=== PATIENT | female | born 1990 | race Caucasian/White ===

== ENCOUNTER 2024-01-29 15:55 | Outpatient (CLI) | payer MEDICAID, SELFPAY ==
--- OUTSIDE RECORDS SUMMARY | 2024-01-29 15:58 | XMS_ITS | Encounter Summary ---
Author Organization [facility] Address [address] [place] [address] Care Team Providers Care Marketing Summer Intern Name Role Phone None Reported, Pcp Primary Care Provider Unavail able Encounter Details Date Type Department Care Team (Latest Contact Info) Description 05/17/2023 Intake [facility] Social History Tobacco Use Types Packs/Day Years Used Date Smoking Tobacco: Former Cigarettes Q uit: 2018 Smokeless Tobacco: Never Alcohol Use Standard Drinks/Week Comments Not Currently 0 (1 standard drink = 0.6 oz pur e alcohol) [facility] Utilities Answer Date Recorded In the past 12 months has e [facility], gas, oil, or water [employer] threatened to shut off services in your home? No 05/17/2023 Humiliation, Afraid, Rape, and Kick questionnair e Answer Date Recorded Within the last year, have y ou been afraid of your partner or ex-partner? No 05/17/2023 Within the last year, have y ou been humiliated or emotionally abused in other ways by your partner or ex-partner? No Within the last year, have y ou been kicked, hit, slapped, or otherwise physically hurt by your partner or ex-partner? No 05/17/2023 Within the last year, have y ou been raped or forced to have any kind of sexual activity by your partner or ex-partner? No 05/17/2023 Social Connection and Isolat ion Panel [NHANES] Answer Date Recorded In a typical week, how many times do you talk on the phone with family, friends, or neighbors? Twice a week 01/06/2020 Frequency of Social Gatherin gs with Friends and Family Not on file 01/06/2020 Attends Judaism Services Not on file 01/05 Do you belong to any clubs o r organizations such as buddhist groups, unions, fraternal or athletic groups, or school groups? Yes 01/06/2020 How often do you attend meet ings of the clubs or organizations you belong to? More than 4 times per year 01/06/2020 Marital Status Not on file 01/06/2020 AUDIT-C Answer Date Recorded Frequency of Alcohol Consumption Never 02/26/2019 Average Number of Drinks Not on file 019 Frequency of Binge Drinking Not on file 02/08 Overall Financial Resource Strain (CARDIA) Answe r Date Recorded How hard is it for you to pa y for the very basics like food, housing, medical care, and heating? Patient declined 02/05/2023 PHQ-2 Answer Date Recorded PHQ-2 Score 0 08/02/2023 [facility] - Occupational Stress Questionnaire Answer Date Recorded Do you feel stress - tense, restless, nervous, or anxious, or unable to sleep at night because your mind is troubled all the time - these days? Not at all 01/06/2020 Exercise Vital Sign Answer Date Recorde d On average, how many days pe r week do you engage in moderate to strenuous exercise (like a brisk walk)? 7 days 02/05/2023 On average, how many minutes do you engage in exercise at this level? 60 min 02/05/2023 Hunger Vital Sign Answer Date Recorded Within the past 12 months, y ou worried that your food would run out before you got the money to buy more. Patient declined Within the past 12 months, t he food you bought just didn't last and you didn't have money to get more. Patient declined 11/2023 PRAPARE - Transportation Answer Date Re corded In the past 12 months, has l ack of transportation kept you from medical appointments or from getting medications? No 11/2023 In the past 12 months, has l ack of transportation kept you from meetings, work, or from getting things needed for daily living? No 05/17/2023 Depression Answer Date Recor ded PHQ-9 Total Score (max 27) 0 08/01 Nutrition Answer Date Recorded On average, how many serving s of fruits and vegetables do you eat per day (serving size is equal to 1 cup or approximately the size of a tennis ball)? 5 or more 02/05/2023 Dental Answer Date Recorded Dental: Regular Dentist Yes 02/06/20 23 Housing Stability Answer Date Recorded What is your living situation today? I have a [facility] place to live 05/17/2023 Education Answer Date Recorded What is the highest level of school you have completed or the highest degree you have received? Some college, no degree 01/06/2020 Comments Yes Sex and Gender Information Value Date Recorded Sex Assigned at Female 02/05/2023 9:56 PM CDT Legal Sex Female 3:22 PM CDT Gender Identity Female 02/05/2023 9:56 PM CDT Sexual Orientation Straight 02/05/2023 9: 56 PM CDT documented as of this encounter Plan of Treatment Not on file documented as of this encounter Visit Diagnoses Not on filedocumented in this encounter Additional Health Concerns Assessment Noted Time PHQ-9 Depression Total Score: 0 12/29/19 20 10:05 AM CDT documented as of this encounter Care Teams Marketing Summer Intern Relationship Specialty Start Date End Date None Reported, Pcp PCP - General Family Medicine 07/20/23 documented as of this encounter
--- OUTSIDE RECORDS SUMMARY | 2024-01-29 15:58 | XMS_ITS ---
Author Organization [facility] Address [address] [place] [address] Care Team Providers Care Lining Baster Name Role Phone Unavailable Unavailable Unavailable Surgery Details Not on file Complications Check Surgery Details section. Procedure Estimated Blood Loss Check Surgery Details section. Procedure Findings Check Surgery Details section. Procedure Specimens Taken Check Surgery Details section.
--- OUTSIDE RECORDS SUMMARY | 2024-01-29 15:58 | XMS_ITS | Encounter Summary ---
Author Organization [facility] Address [address] [place] [address] Care Team Providers Care Drain Tile Machine Operator Name Role Phone None Reported, Pcp Primary Care Provider Unavail able Encounter Details Date Type Department Care Team (Late st Contact Info) Description 09/28/2023 Clinical Communication Department of Family Medicine, [facility] in [place], [place] [address] [place] [address] David Perez M.D., M.S. [address] [place] [address] Social History Tobacco Use Types Packs/Day Years Used Date Smoking Tobacco: Former Cigarettes Q uit: 2018 Smokeless Tobacco: Never Alcohol Use Standard Drinks/Week Comments Never 0 (1 standard drink = 0.6 oz pur e alcohol) [facility] Utilities Answer Date Recorded In the past 12 months has e [facility], gas, oil, or water [employer] threatened to shut off services in your [...] and Family Not on file 01/06/2020 Attends Quaker Services Not on file 01/05 Do you belong to any clubs o r organizations such as yazdanism groups, unions, fraternal or athletic groups, or [...] Answer Date Recorded PHQ-2 Score 0 08/02/2023 [facility] - Occupational [...] medical appointments or from getting medications? No 02/0 11/2023 In the past 12 months, has [...] Date Recorded Dental: Regular Dentist Yes 02/06/20 Housing Stability Answer Date Recorded What is your living situation today? I have a [facility] place to live 05/17/2023 Education Answer Date Recorded What is the highest level of school you have completed or the highest degree you have received? Some college, no degree 01/06/2020 Comments No Sex and Gender Information Value Date Recorded [...] Noted Time PHQ-9 Depression Total Score: 0 08/02/19 10:44 AM CDT documented as of this encounter Care Teams Drain Tile Machine Operator Relationship Specialty Start Date End Date None Reported, Pcp PCP - General Family Medicine 07/20/23 documented as of this encounter
--- OUTSIDE RECORDS SUMMARY | 2024-01-29 15:58 | XMS_ITS | Referral Summary ---
Author Organization [facility] Address [address] [place] [address] Care Team Providers Care Anthropological Linguist Name Role Phone Lucretia, Md Primary Care Provider Unavailabl e None, Unavailable Unavailable Allergies Active Allergy Reactions Criticality Noted Date Comments Cephalexin Swelling, lips/tongue High 09/24/2018 Latex 09/24/2018 Medications Medication Sig Dispensed Refills Start Date End Date Status dextroamphetamine-amp hetamine (ADDERALL SR) 20 mg oral extended release capsule 24 HR 0 08/05/2018 Active ibuprofen 600 mg oral tablet Take 600 mg by mouth. 01/24/2018 Active vitamin with Ca,No.72-Iron-FA ( PLUS) 27 mg iron- 1 mg oral tablet Take 1 tablet by mouth Daily. Active acetaminophen (TYLENOL) 500 mg oral tablet Take 1-2 tablets (500-1,000 mg) by mouth every 6 (six) hours as needed. 30 tablet 03/04/2019 Active Active Problems No known active problems Social History Tobacco Use Types Packs/Day Years Used Date Smoking Tobacco: Never Smokeless Tobacco: Never Alcohol Use Standard Drinks/Week Comments Not Currently 0 (1 standard drink = 0.6 oz pur e alcohol) Sex and Gender Information Value Date Recorded Sex Assigned at Not on file Gender Identity Not on file Sexual Orientation Not on file Last Filed Vital Signs Vital Sign Reading Time Taken Comments Blood Pressure 135/70 12/29/2018 3:36 PM CDT Pulse 59 12/29/2018 3:36 PM CDT Temperature 36.6 ??C (97.9 ??F) 12/29/2018 3:36 PM CD T Respiratory Rate 16 12/29/2018 3:36 PM CDT Oxygen Saturation 98% 12/29/2018 3:36 PM CDT Inhaled Oxygen Concentration - - Weight 81.6 kg (180 lb) 12/29/2018 3:36 PM CDT Height 160 cm (5' 3) 12/29/2018 3:36 PM CDT Body Mass Index 31.89 12/29/2018 3:36 PM CDT Plan of Treatment Not on file Care Teams Anthropological Linguist Relationship Specialty Start Date End Date None, PCP - General 09/24/18 None, PCP - Primary Care Clinic 09/24/18
--- OUTSIDE RECORDS SUMMARY | 2024-01-29 15:58 | XMS_ITS | Referral Summary ---
Author Organization [facility] Address [address] [place] [address] Care Team Providers Care Sliding Joint Maker Name Role Phone None Reported, Pcp Primary Care Provider Unavail able Source Comments Patient records contain information from all sites at [facility]. For routine questions regarding patient records, call [phone] during business hours, M-F 8:00 AM - 5:00 PM Central Time. Record requests for emergency care only can be directed to [phone] at any time.[facility] Allergies Active Allergy Reactions Criticality Noted Date Comments Cephalexin Anaphylaxis,Swelling High 07/16/2016 Latex Anaphylaxis,Angioede ma (Reselect Reaction),Hives (Reselect Reaction) High 02/16/2012 Medications * This document contains information received from the source organization and may not represent a complete record from that organization. LORazepam (ATIVAN) 2 mg tablet Take 2 mg by mouth 3 (three) times a day as needed for anxiety. Active lxvxphv-Bi-asxu- FA 27 mg iron- 1 mg tablet Take 1 tablet by mouth daily. Active Ventolin HFA 90 mcg/actuation inhalerIndicatio ns:Asthma Mild Intermittent (HCC) INHALE 2 PUFFS BY MOUTH EVERY 4 HOURS NEEDED FOR WHEEZING FOR SHORTNESS OF BREATH 18 g 11/22/19 23 Active cyanocobalamin (vitamin B-12) 1,000 mcg tablet Take 1,000 mcg by mouth daily. Active calcium carbonate-vitami n D3 (Calcium 600 with Vitamin D3) 600 mg-10 mcg (400 unit) tablet,chewable Chew 1 tablet 2 (two) times a day. Active EPINEPHrine 0.3 mg/0.3 mL injection syringe Inject 0.3 mL (0.3 mg total) intramuscularly as needed for anaphylaxis. Inject into the thigh. 2 each 3 02/29/20 23 Active acetaminophen (TYLENOL) 500 mg tablet Take 2 tablets (1,000 mg total) by mouth every 6 (six) hours as needed for pain. 100 tablet 4 3:24 PM REFRIGERATION SERVICE INSPECTOR 05/21/19 24 Active fluticasone furoate (ARNUITY ELLIPTA) 200 mcg/actuation diskus inhaler Inhale 1 puff daily. 30 each 1 05/21/19 24 Active amphetamine-dext roamphetamine (ADDERALL XR) 25 mg 24 hr capsule Take 2 capsules (50 mg total) by mouth daily. 90 capsule 4 2:44 PM CDT 07/04/19 24 Active norethindrone (MICRONOR) 0.35 mg tablet Take 1 tablet (0.35 mg total) by mouth daily. Take at the same time each day. 84 tablet 4 4 2:44 PM CDT 07/04/19 24 Active Active Problems Patient Care Coordination No te Formatting of this note migh t be different from the original. Delivery plan: chart: Care Team/nursing team: DEBBI (Wenceslao and Nichelle) Partner name: Pertinent medical issues for management (just critical diagnoses for ): Di/di twins H/o classical incision Placenta Previa- /Maternal Board plans indicated: (yes or no) Genetic testing at delivery: Antepartum: Additional consults needed/completed: Echo - Dheeraj - Anesthesia - needed in 3rd trimester echos - ordered Tour - Genetics - Social Work - COVID: Flu Shot: Rhogam: A+ Tdap: Rubella/Varicella status: 28 week labs: PHQ 9: GBS: Labor/Delivery Plan: Contraception plan: Education: NOB - done Early - done Mid - done Late - Problem Noted Date Diagnosed Date Animal Bite Thigh Open Initial Right 07/20/2023 Diastasis Recti 05/20/2023 Other Immediate Hemorrhage 05/19/2023 Anemia Posthemorrhagic Acute (Blood Loss Anemia) 05/19/2023 Overview (05/19/2023): - Hgb 9.8 on POD1 Care And Lactating 05/18/2023 Overview (05/18/2023): Chraissa Silverio is a 33 y.o. . She was admitted to antepartum at 30w0d as a transfer for vaginal bleeding in the setting of a known complete posterior placenta previa. also complicated by a dichorionic diamniotic twin gestation, grand multiparity, mild intermittent asthma, obesity, ADHD, history of 3 deliveries including one classical , history of pre-eclampsia, mood disorder, history of PPH, history of spontaneous late precipitous . Prior to presenting to an outside hospital, she passed mucous mixed with dark blood. Otherwise asymptomatic. On exam, she was vitally stable. On pelvic exam mucous mixed with brown blood was seen. Cervix closed. She was transferred to antepartum for further monitoring. On 05/18 patient was evaluated at the bedside for vaginal bleeding and was noted to be actively bleeding and underwent an primary delivery. Complications of delivery included placental abruption of placenta A. She had a repeat delivery, delivering a liveborn male with weight of 1.58 kg and then Twin B was a liveborn female weighing 1.36 kg. Jean Claude, Boy A One Charissa [[id number]] 1.58 kg Jean Claude, Girl B Two Charissa [[phone]] 1.36 kg . Gestational age: 30w1d. occurred: Contraceptive methods administered during the delivery: None Both mother was in stable condition at the conclusion of the procedure. Neonates were handed off to the Dheeraj team. When the patient met appropriate criteria, she was transferred to the floor. She received her care at [facility]. Section Delivery 05/18/2023 Overview (05/18/2023): Charissa Silverio is a 33 y.o. . She was admitted to antepartum at 30w0d as a transfer for vaginal bleeding in the setting of a known complete posterior placenta previa. also complicated by a dichorionic diamniotic twin gestation, grand multiparity, mild intermittent asthma, obesity, ADHD, history of 3 deliveries including one classical , history of pre-eclampsia, mood disorder, history of PPH, history of spontaneous late precipitous . Prior to presenting to an outside hospital, she passed mucous mixed with dark blood. Otherwise asymptomatic. On exam, she was vitally stable. On pelvic exam mucous mixed with brown blood was seen. Cervix closed. She was transferred to antepartum for further monitoring. On 05/18 patient was evaluated at the bedside for vaginal bleeding and was noted to be actively bleeding and underwent an primary delivery. Complications of delivery included placental abruption of placenta A. She had a repeat delivery, delivering a liveborn male with weight of 1.58 kg and then Twin B was a liveborn female weighing 1.36 kg. Jean Claude, Boy A One Charissa [[id number]] 1.58 kg Jean Claude, Girl B Two Charissa [[phone]] 1.36 kg . Gestational age: 30w1d. occurred: Contraceptive methods administered during the delivery: None Both mother was in stable condition at the conclusion of the procedure. Neonates were handed off to the Dheeraj team. When the patient met appropriate criteria, she was transferred to the floor. She received her care at [facility]. Maternal Care For Vertical S car From Previous Delivery 01/09/2020 Overview (03/29/2023): Previous classical section. Recommend delivery around 36 weeks at latest. 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 Level II US returned normal. Assessment & Plan (03/17/2019 3:34 PM REFRIGERATION SERVICE INSPECTOR): Plan MFM consult and Level II US. Assessment & Plan (03/04/2019 1:51 PM REFRIGERATION SERVICE INSPECTOR): Will offer maternal serum screen once confirmed viable. Will offer first trimester anatomy US. Plan MFM consult, Level II US, and cardiac echo. Assessment & Plan (02/27/2019 5:09 PM REFRIGERATION SERVICE INSPECTOR): Will offer maternal serum screen once confirmed viable. Plan MFM consult, Level II US, and cardiac echo. Attention Deficit Hyperactive Disorder 9 Assessment & Plan (03/17/2019 3:33 PM REFRIGERATION SERVICE INSPECTOR): Referral to Psychiatry scheduled for 04/01/2019. Working with Ariela Hanks in care coordination to assist with coordinating this. Dr. Finney is prescribing her Adderall in the meantime. Has had improvement in symptoms back on medication, and is happy with this, though she believes her symptoms could be better controlled. Assessment & Plan (03/04/2019 1:50 PM REFRIGERATION SERVICE INSPECTOR): Plan referral to Psychiatry. Working with Ariela Hanks in care coordination to assist with coordinating this. Dr. Finney is prescribing her Adderall in the meantime. Has had improvement in symptoms back on medication, and is happy with this, though she believes her symptoms could be better controlled. Assessment & Plan (02/27/2019 4:40 PM REFRIGERATION SERVICE INSPECTOR): Plan referral to Psychiatry in [place]. Referral will need to be provided by her primary care provider. Will be in touch with Dr. Finney to order this referral. I will also ask whether he is willing to switch her to Adderall and possibly Strattera, since it is category C, in the meantime until she can be seen by Psychiatry. Tinnitus Bilateral 12/28/2017 Loss Hearing Sensorineural 12/28/2017 Asymptomatic Varicose Veins Of Right Lower Extre mity 10/29/2017 Asthma Mild Intermittent 06/07/2016 Overview (01/09/2020): Pulmicort 90 mcg/inhaled, 1 puff bid. Albuterol MDI prn. She reports stable symptoms with no concerns or needing to use her rescue frequently. Assessment & Plan (03/17/2019 3:32 PM REFRIGERATION SERVICE INSPECTOR): Reports increased symptoms. Has not picked up albuterol or pulmicort. Prescriptions resent. Assessment & Plan (02/27/2019 4:41 PM REFRIGERATION SERVICE INSPECTOR): Will confirm at the next visit that she is using Pulmicort and albuterol as needed. Baseline peak flow at the next visit and at each visit after. 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 Persistent at [address] Dichorionic Diamniotic 02/28/2023 03/05/2023 High Risk 02/28/2023 05/28/19 24 Twin Dichorionic Diamniotic 01/29/2023 03/05/2023 Overview (01/29/2023): EDC based on ultrasound on 01/11/2023 with an estimated gestational age at that time of 12+ 0. EDC therefore 07/26/2023. Counseling Sterilization 01/29/2023 Overview (01/29/2023): Discussed permanent sterilization at the time of repeat section. Will need Federal sterilization consent. Patient considering but most likely will not do due to mu-ism considerations. having a vasectomy. Major Depressive Disorder, R ecurrent, Unspecified 08/16/2021 06/07/2023 Overview (05/19/2023): Created by Conversion Replacement Utility updated for latest IMO load Created by Conversion Replacement Utility updated for latest IMO load Delayed Care 12/29/20192022 Overview (01/09/2020): She found out she was in the 3rd trimester, and dating is by 34+1 week US. That US showed growth at the 67%ile with EFW of 2543 gm. [facility] recommended follow up US in 2-3 weeks for growth based upon dating in the 3rd trimester. This was ordered today. Pap Smear Examination 12/29/20192022 Overview (12/29/2019): Patient is due for Pap test. We will defer for PP visit given her current gestational age. Patient in agreement. Contraception Personal History 12/29/2019 01/29/2023 Overview (12/29/2019): 12/28 EK: patient reports prior conception (7th ) while an IUD was in place. She also reports failing ALMOND PAN FINISHER. She is considering the NuvaRing for contraception following this . She and her are considering a 10th child in the future. Discharge Vaginal 12/29/2019 01/29/2023 Overview (01/09/2020): Possible yeast infection at time of initial exam. Vaginitis panel returned negative. She was treated for BV with metronidazole for 7 days and vaginal yeast with clotrimazole for 7 days. Symptoms have improved. 37 Weeks Gestation 12/29/2019 01/29/2023 Overview (01/09/2020): Will order COVID testing at the time of the next visit for 01/30/2020. OB education up to date. Missed Menses 04/21/2019 05/07/2019 Incomplete 04/17/2019 05/07/19 Overview (04/19/2019): US on 03/04/19 showed GS only, repeat US 3 weeks showed no growth in . She has never had loss of tissue. Eval in ED on 04/17 showed retained POC measuring 47 mm. Plan D&C on FBC 04/21/19. Declines contraception, specifically IUD placement after D&C. Examination Test W ith Positive Result 03/04/2019 04/17/2019 Assessment & Plan (03/26/2019 11:43 AM REFRIGERATION SERVICE INSPECTOR): US today shows a gestational sac with average sac diameter of 1.76 cm. No yolk sac, pole, or cardiac activity are noted. It has been 13 days since US showed a gestational sac without a yolk sac or pole. We discussed that after 14 days, absence of embryo with cardiac activity is evidence of early failure. She will return in 3-4 days for follow up US. Assessment & Plan (03/04/2019 1:56 PM REFRIGERATION SERVICE INSPECTOR): labs and OB education will be ordered when is confirmed to be viable. Ultrasound today shows an intrauterine gestational sac with average sac diameter of 7.4 mm corresponding to 5+2 weeks gestational age. No definitive pole noted. Cardiac activity not visualized Plan repeat ultrasound in 2 weeks. If is viable, pole with cardiac activity should be seen at that time Dysuria 03/04/2019 07/04/2023 Assessment & Plan (03/26/2019 11:40 AM REFRIGERATION SERVICE INSPECTOR): UA/UCx negative on 03/04/2019. Assessment & Plan (03/04/2019 1:54 PM REFRIGERATION SERVICE INSPECTOR): No fevers, chills, or CVA tenderness. Stress 02/27/2019 01/29/2023 Overview (01/08/2020): Please see details above under depression anxiety Maternal Care For Vertical S car From Previous Delivery 02/27/2019 04/19/2019 Overview (02/27/2019): History of classical section. Operative report reviewed. Plan delivery at 36+0 weeks - 37+6 weeks gestation. Assessment & Plan (03/17/2019 3:35 PM REFRIGERATION SERVICE INSPECTOR): Plan MFM consult and Level II US. Assessment & Plan (03/04/2019 1:52 PM REFRIGERATION SERVICE INSPECTOR): Plan MFM consult and Level II US. Assessment & Plan (02/27/2019 5:08 PM REFRIGERATION SERVICE INSPECTOR): Plan MFM consult and Level II US. Multiparity Grand With 02/27/2019 05/28/2023 Overview (03/29/2023): Increased risk of PPH. Assessment & Plan (03/17/2019 3:35 PM REFRIGERATION SERVICE INSPECTOR): CBC and type and screen upon admission for section. She has asthma, so will have Methergine immediately available at the time of delivery. We will avoid the use of Hemabate. Assessment & Plan (03/04/2019 1:52 PM REFRIGERATION SERVICE INSPECTOR): CBC and type and screen upon admission for section. She has asthma, so will have Methergine immediately available at the time of delivery. We will avoid the use of Hemabate Assessment & Plan (02/27/2019 5:10 PM REFRIGERATION SERVICE INSPECTOR): CBC and type and screen upon admission for section. She has asthma, so will have Methergine immediately available at the time of delivery. We will avoid the use of Hemabate Tension Type Headache Unspec ified Not Intractable 10/29/2017 02/28/2023 Overview (12/29/2019): 12/28 EK: she denies any problems with headaches during this . Bipolar Disorder 02/14/2004 06/07/2023 Depression Anxiety 3 Overview (01/08/2020): No meds for depression/anxiety. Most of her symptoms, per her report, were secondary to her social situation during the fall of 2018. Her house (trailer) was deemed inhabitable and her kids were taken off her custody temporarily until appropriate living arrangements were made. She was able to move with her to [place] and a 5-bedroom 3-bathroom house and was able to get full custody of her 7 out of 8 children by early 2019 and as of 10/2019 her 8th child is now with them. The reason her 8th child returned a little later was due to the special needs required for his care. She reports feeling well today with no concerns from a mood-standpoint. Assessment & Plan (03/26/2019 11:38 AM REFRIGERATION SERVICE INSPECTOR): Psychiatry visit is being coordinated. EPDS score 6 and GISEL-7 score 3 when last checked. She now has custody of 7 of her children and that has helped. Assessment & Plan (03/04/2019 1:50 PM REFRIGERATION SERVICE INSPECTOR): Psychiatry visit is being coordinated. EPDS score 6 and GISEL-7 score 3 today. Assessment & Plan (02/27/2019 5:11 PM REFRIGERATION SERVICE INSPECTOR): Plan psychiatry referral. EPDS at next visit. [place] II No Diagnosis 023 Immunizations Name Administration Dates Next Due 4vHPV (discontinued) 05/02/2007,07/17/2006,04/19 DTP 03/08/1993,1992,1992 DTP / Hib 08/22/1994 DTaP (Infanrix, Tripedia) 06/08/1997 HepA, Pediatric Unspecified 11/10/2003, 0 HepA, Unspecified 11/10/2003,11/02/1999,04/28/19 00 HepB, Unspecified 08/22/1994,1992,04/30/18 93 Hib, Unspecified 03/08/1993,1992, 3 MCV4 (Menactra)(Discontinued) 04/19/2006 MMR 01/30/2020(Deferred: Patient Refused),12/20/2011,06/08/1997,08/19/1993 Polio, Unspecified 06/08/1997,03/08/1993, 993,1992 Rabies (Imovax) 08/03/2023,07/27/2023,07/23/2023 ,07/20/2023 Td, (Adult) Unspecified 11/10/2003 Tdap 07/20/2023(Deferred: Patient Refused),01/08/2020(Deferred: Other - patient refusing vaccine today),11/20/2016,06/01/2015,09/15/2009,2007 REHANA 06/01/2015,02/22/2006,08/22/1994 Social History Tobacco Use Types Packs/Day Years Used Date Smoking Tobacco: Former Cigarettes Q uit: 2018 Smokeless Tobacco: Never Tobacco Cessation:Counseling Given: Not Answered Alcohol Use Standard Drinks/Week Comments Never 0 (1 standard drink = 0.6 oz pur e alcohol) [facility] Utilities Answer Date Recorded In the past 12 months has e [employer], gas, oil, or water [employer] threatened to shut off services in your [...] and Family Not on file 01/06/2020 Attends [employer] Not on file 01/05 Do you belong to any clubs o r organizations such as sabianism groups, unions, fraternal or athletic groups, or [...] Answer Date Recorded PHQ-2 Score 0 08/02/2023 [facility]at [facility] - Occupational Stress [...] living situation today? I have a [facility] place to live 05/17/2023 Education Answer Date [...] Orientation Straight 02/05/2023 9: 56 PM CDT Last Filed Vital Signs Vital Sign Reading Time Taken Comments Blood Pressure 133/83 07/20/2023 7:15 PM CDT Pulse 67 07/20/2023 6:22 PM CDT Temperature 36.8 ??C (98.2 ??F) 07/20/2023 6:22 PM CD T Respiratory Rate 20 07/20/2023 7:15 PM CDT Oxygen Saturation 96% 07/20/2023 6:22 PM CDT Inhaled Oxygen Concentration - - Weight 106 kg (233 lb 11 oz) 07/20/2023 6:21 PM CDT Height 162.2 cm (5' 3.86) 06/07/2023 10:[address] Body Mass Index 40.29 06/07/2023 10:01 AM REFRIGERATION SERVICE INSPECTOR Plan of Treatment Not on file Procedures Procedure Name Priority Date/Time Associated Diagnosis Comments HIV-1/-2 AG AND AB SCRN, PLASMA Routine 01/29/2023 3:16 PM CDT Encounter For Supervision Of Other Normal Unspecified Trimester (HCC) HPV WITH GENOTYPING, PCR, THINPREP Routine 01/29/2023 2:28 PM CDT from Last 3 Months or Most Recently Relevant to Health Maintenance Results * HIV-1/-2 Ag and Ab Scrn, Plasma (01/29/2023 3:16 PM CDT) HIV Ag/Ab Scrn, P Negative Negative 01/30/2023 12:10 PM CDT [facility] Comment: Negative result does not rule out HIV infection. If exposure to HIV infection occurred <14 days ago, contact the laboratory to request addition of HIV-1/HIV-2 RNA detection , Plasma (HPP12). HIV-1 p24 Ag Scrn, P Negative Negative 01/30/2023 12:10 PM CDT [facility] Comment: Negative result does not rule out HIV infection. If exposure to HIV infection occurred <14 days ago, contact the laboratory to request addition of HIV-1/HIV-2 RNA detection , Plasma (HPP12). HIV-1 Ab Scrn, P Negative Negative 01/30/2023 12:10 PM CDT [facility] Comment: Negative result does not rule out HIV infection. If exposure to HIV infection occurred <14 days ago, contact the laboratory to request addition of HIV-1/HIV-2 RNA detection , Plasma (HPP12). HIV-2 Ab Scrn, P Negative Negative 01/30/2023 12:10 PM CDT [facility] Comment: Negative result does not rule out HIV infection. If exposure to HIV infection occurred <14 days ago, contact the laboratory to request addition of HIV-1/HIV-2 RNA detection , Plasma (HPP12). Blood (Blood, Venous) 01/29/2023 3:16 PM CDT 01/30/2023 10:57 AM CDT Cecilio Healy Jr., M.D. LAB MICROBIOLOGY - BLO OD ORDERABLES Final Result [facility] [address] [place] [address], [facility] [place] [address] * HPV with Genotyping, PCR, ThinPrep (01/29/2023 2:28 PM CDT) Pathologist [facility] HPV with Genotyping, ThinPrep, PCR Negative Negative 01/30/2023 4:59 PM CDT [facility] Comment: Negative for high risk HPV by nucleic acid amplification. ??The following high risk HPV types were not detected: 16, 18, 31, 33, 35, 39, 45, 51, 52, 56, 58, 59, 66, and 68 This result does not rule out HPV in the patient, as the sensitivity of the test depends on the timing of the specimen collection and the quality of the specimen. Result should be correlated with patient's history, clinical presentation, and CROWN BLOCKER cytology report. 01/29/2023 2:28 PM CDT 01/30/2023 6:49 AM CDT Cecilio G Healy Jr., M.D. LAB MICROBIOLOGY - GEN ERAL ORDERABLES Final Result [facility] [address] [place] [address], [place] [facility] [address] [facility] [address] [place] [address] from Last 3 Months or Most Recently Relevant to Health Maintenance Administered Medications Insurance [employer] Advance Directives For more information, please contact: [phone] * Full Code (Latest Code Status on File) Date Activated Date Inactivated Comments 05/01/2023 10:56 AM 05/04/2023 2:22 PM Question Answer Comments Full Code: Not Discussed Due to: Not medically appropriate * Full Code Date Activated Date Inactivated Comments 01/29/2020 10:37 AM 01/29/2020 6:03 PM Question Answer Comments Full Code: Not Discussed Due to: Not medically appropriate Care Teams Sliding Joint Maker Relationship Specialty Start Date End Date None Reported, Pcp PCP - General Family Medicine 07/20/23
--- OUTSIDE RECORDS SUMMARY | 2024-01-29 15:58 | XMS_ITS | Clinical Summary ---
Author Organization [facility] Address [address] [place] [address] Care Team Providers Care Mint Wafer Depositor Name Role Phone Lucretia, Md Primary Care [...] 12/29/2018 3:36 PM CDT Plan of Treatment Health Maintenance Due Date Last Done Comments Hepatitis C Screening 1992 Pap Smear 1992 Anxiety Screening (GISEL-2) 1993 Depression Assessment (PHQ-2) 1993 Pneumococcal <65 (1 of 2 - PCV) 1998 COVID-19 Vaccine (2023-2 5 season) 2023 Influenza Vaccine (#1) 2023 Adult Tetanus Booster 11/20/2026 11/20/2016 , 06/01/2015, 09/15/2009, Additional history exists RSV Vaccines (1 - 1-dose 75+ series) 2067 Care Teams Mint Wafer Depositor Relationship Specialty Start Date End Date None, PCP - General 09/24/18 None, PCP - Primary Care Clinic 09/24/18
--- OUTSIDE RECORDS SUMMARY | 2024-01-29 15:58 | XMS_ITS | Clinical Summary ---
Author Organization [facility] Address [address] [place] [address] Care Team Providers Care Sales Support Associate Name Role Phone None Reported, Pcp Primary Care Provider Unavail able Source Comments Patient records contain information from all sites at [facility]. For routine questions regarding patient records, call [phone] during business hours, M-F 8:00 AM - 5:00 PM Central Time. Record requests for emergency care only can be directed to [phone] at any time.[facility] Allergies Active Allergy Reactions Criticality Noted Date Comments Cephalexin Anaphylaxis,Swelling High 07/16/2016 Latex Anaphylaxis,Angioede ma (Reselect Reaction),Hives (Reselect Reaction) High 02/16/2012 Medications * This document contains information received from the source organization and may not represent a complete record from that organization. LORazepam (ATIVAN) 2 mg tablet Take 2 mg by mouth 3 (three) times a day as needed for anxiety. Active mocjilc-Gp-bafk- FA 27 mg iron- 1 mg tablet [...] for pain. 100 tablet 4 3:24 PM INTERNATIONAL MARKETING SPECIALIST 05/21/19 24 Active fluticasone furoate (ARNUITY ELLIPTA) [...] POD1 Care And Lactating 05/18/2023 Overview (05/18/2023): Charissa Silverio is a [...] the floor. She received her care at [facility]. Section Delivery 05/18/2023 Overview (05/18/2023): Charissa [...] kg. Jean Claude, Boy A One Charissa [[phone]] 1.58 kg Jean Claude, Girl B Two Charissa [[phone]] 1.36 kg . Gestational age: 30w1d. occurred: Contraceptive methods administered during the delivery: None Both mother was in stable condition at the conclusion of the procedure. Neonates were handed off to the Dheeraj team. When the patient met appropriate criteria, she was transferred to the floor. She received her care at [facility]. Maternal Care For Vertical S car [...] normal. Assessment & Plan (03/17/2019 3:34 PM INTERNATIONAL MARKETING SPECIALIST): Plan MFM consult and Level II US. Assessment & Plan (03/04/2019 1:51 PM INTERNATIONAL MARKETING SPECIALIST): Will offer maternal serum screen once confirmed viable. Will offer first trimester anatomy US. Plan MFM consult, Level II US, and cardiac echo. Assessment & Plan (02/27/2019 5:09 PM INTERNATIONAL MARKETING SPECIALIST): Will offer maternal serum screen once confirmed viable. Plan MFM consult, Level II US, and cardiac echo. Attention Deficit Hyperactive Disorder 9 Assessment & Plan (03/17/2019 3:33 PM INTERNATIONAL MARKETING SPECIALIST): Referral to Psychiatry scheduled for 04/01/2019. Working with Ariela Hanks in care coordination to assist with coordinating this. Dr. Finney is prescribing her Adderall in the meantime. Has had improvement in symptoms back on medication, and is happy with this, though she believes her symptoms could be better controlled. Assessment & Plan (03/04/2019 1:50 PM INTERNATIONAL MARKETING SPECIALIST): Plan referral to Psychiatry. Working with Ariela Hanks in care coordination to assist with coordinating this. Dr. Finney is prescribing her Adderall in the meantime. Has had improvement in symptoms back on medication, and is happy with this, though she believes her symptoms could be better controlled. Assessment & Plan (02/27/2019 4:40 PM INTERNATIONAL MARKETING SPECIALIST): Plan referral to Psychiatry in [place]. Referral will need to be provided by [...] frequently. Assessment & Plan (03/17/2019 3:32 PM INTERNATIONAL MARKETING SPECIALIST): Reports increased symptoms. Has not picked up albuterol or pulmicort. Prescriptions resent. Assessment & Plan (02/27/2019 4:41 PM INTERNATIONAL MARKETING SPECIALIST): Will confirm at the next visit that [...] most likely will not do due to holiness considerations. having a vasectomy. Major Depressive Disorder, [...] the 67%ile with EFW of 2543 gm. [facility] recommended follow up US in 2-3 weeks [...] was in place. She also reports failing [address] [employer]. She is considering the NuvaRing for contraception [...] 04/17/2019 Assessment & Plan (03/26/2019 11:43 AM INTERNATIONAL MARKETING SPECIALIST): US today shows a gestational sac with [...] US. Assessment & Plan (03/04/2019 1:56 PM INTERNATIONAL MARKETING SPECIALIST): labs and OB education will be ordered [...] 07/04/2023 Assessment & Plan (03/26/2019 11:40 AM INTERNATIONAL MARKETING SPECIALIST): UA/UCx negative on 03/04/2019. Assessment & Plan (03/04/2019 1:54 PM INTERNATIONAL MARKETING SPECIALIST): No fevers, chills, or CVA tenderness. Stress 02/27/2019 01/29/2023 Overview (01/08/2020): Please see details above under depression anxiety Maternal Care For Vertical S car From Previous Delivery 02/27/2019 04/19/2019 Overview (02/27/2019): History of classical section. Operative report reviewed. Plan delivery at 36+0 weeks - 37+6 weeks gestation. Assessment & Plan (03/17/2019 3:35 PM INTERNATIONAL MARKETING SPECIALIST): Plan MFM consult and Level II US. Assessment & Plan (03/04/2019 1:52 PM INTERNATIONAL MARKETING SPECIALIST): Plan MFM consult and Level II US. Assessment & Plan (02/27/2019 5:08 PM INTERNATIONAL MARKETING SPECIALIST): Plan MFM consult and Level II US. Multiparity Grand With 02/27/2019 05/28/2023 Overview (03/29/2023): Increased risk of PPH. Assessment & Plan (03/17/2019 3:35 PM INTERNATIONAL MARKETING SPECIALIST): CBC and type and screen upon admission for section. She has asthma, so will have Methergine immediately available at the time of delivery. We will avoid the use of Hemabate. Assessment & Plan (03/04/2019 1:52 PM INTERNATIONAL MARKETING SPECIALIST): CBC and type and screen upon admission for section. She has asthma, so will have Methergine immediately available at the time of delivery. We will avoid the use of Hemabate Assessment & Plan (02/27/2019 5:10 PM INTERNATIONAL MARKETING SPECIALIST): CBC and type and screen upon admission [...] was able to move with her to [place] and a 5-bedroom 3-bathroom house and was [...] mood-standpoint. Assessment & Plan (03/26/2019 11:38 AM INTERNATIONAL MARKETING SPECIALIST): Psychiatry visit is being coordinated. EPDS score 6 and GISEL-7 score 3 when last checked. She now has custody of 7 of her children and that has helped. Assessment & Plan (03/04/2019 1:50 PM INTERNATIONAL MARKETING SPECIALIST): Psychiatry visit is being coordinated. EPDS score 6 and GISEL-7 score 3 today. Assessment & Plan (02/27/2019 5:11 PM INTERNATIONAL MARKETING SPECIALIST): Plan psychiatry referral. EPDS at next visit. Avery II No Diagnosis 023 Immunizations Name Administration [...] - patient refusing vaccine today),11/20/2016,06/01/2015,09/15/2009,2007 REHANA 06/01/2015,02/22/2006,08/22/1994 Family History Medical History Relation Name Comments No Known Problems Brother Cataracts Father COPD Maternal Grandfather Cancer Maternal Grandfather mouth t hroat tongue Anemia Maternal Grandmother Heart disease Maternal Grandmother Skin cancer Maternal Grandmother Arthritis Mother Autoimmune disorder Mother Learning disabilities Mother Psychiatric disorder Mother Skin cancer Mother Thyroid disease Sister Relation Name Status Comments Brother Father Maternal Grandfather Maternal Grandmother Mother Sister Social History Tobacco Use Types Packs/Day Years Used Date Smoking Tobacco: Former Cigarettes Q uit: 2018 Smokeless Tobacco: Never Tobacco Cessation:Counseling Given: Not Answered Alcohol Use Standard Drinks/Week Comments Never 0 (1 standard drink = 0.6 oz pur e alcohol) [facility] [employer] Answer Date Recorded In the past 12 months has e [employer], gas, oil, or water [employer] threatened to shut off services in your [...] and Family Not on file 01/06/2020 Attends Amish Services Not on file 01/05 Do you belong to any clubs o r organizations such as anabaptist groups, unions, fraternal or athletic groups, or [...] Answer Date Recorded PHQ-2 Score 0 08/02/2023 [facility] [place] of Occupat ional Health - Occupational Stress [...] your living situation today? I have a [facility] place to live 05/17/2023 Education Answer [...] Body Mass Index 40.29 06/07/2023 10:01 AM INTERNATIONAL MARKETING SPECIALIST Plan of Treatment Health Maintenance Due Date Last Done Comments Pneumococcal vaccine (0-64 y ears) (1 of 2 - PCV) 1998 Asthma Action Plan 02/26/2019 Asthma Control Test Questionnaire 10/26/2022 023 Depression Screening (Annual PHQ-2) 04/09/2023 Asthma Management/Exacerbati on Questionnaire (AMQ/AEQ) 09/15/2023 09/14/2022 COVID-19 Vaccine (1 - 2023-2 5 season) 2023 Influenza Vaccine (#1) 2024 DTaP,Tdap,and Td Vaccines (1 0 - Td or Tdap) 11/20/2026 11/20/2016, 06/01/2015, 09/15/2009, Additional history exists Cervical Cancer Screening 01/30/2028 01/29/2023, Hepatitis B Vaccines Completed 08/22/1994, 1992, 1992 HPV Vaccines Completed 05/02/2007, 07/08, 04/19/2006 Varicella Vaccines Completed 06/01/2015, 1 04/24/2005, 08/22/1994 HIV Screening Completed 01/29/2023, 11/2022, 12/29/2019 Procedures Procedure Name Priority Date/Time Associated Diagnosis [...] MICROBIOLOGY - BLO OD ORDERABLES Final Result Performing Organization Address City/[facility]/ZIP Co de Phone Number [facility] [address] [place] [address], [facility] [place] [address] [place] [address] * HPV with Genotyping, PCR, ThinPrep (01/29/2023 2:28 PM CDT) HPV with Genotyping, ThinPrep, PCR Negative Negative [...] correlated with patient's history, clinical presentation, and MULTICRAFT OPERATOR cytology report. 01/29/2023 2:28 PM CDT 01/30/2023 6:49 AM CDT Cecilio Healy Jr., M.D. LAB MICROBIOLOGY - GEN ERAL ORDERABLES Final Result Performing Organization Address City/[facility]/ZIP Co de Phone Number [facility] [address] [place] [address], [facility] [address] [place] [phone] from Last 3 Months or Most Recently Relevant to Health Maintenance Insurance ARE Member Subscriber Plan / Payer (Ef fective 2023-Present) Name:Charissa Silverio Relation to Subscriber:Self Name:Charissa Silverio Payer ID:[id number] (NAIC) _[id number] Type:Medicaid HMO Address: [place] [id number] Advance Directives For more information, please contact: [phone] * Full Code (Latest Code Status on File) Date Activated Date Inactivated Comments 05/01/2023 10:56 AM 05/04/2023 2:22 PM Question Answer Comments Full Code: Not Discussed Due to: Not medically appropriate * Full Code Date Activated Date Inactivated Comments 01/29/2020 10:37 AM 01/29/2020 6:03 PM Question Answer Comments Full Code: Not Discussed Due to: Not medically appropriate Care Teams Sales Support Associate Relationship Specialty Start Date End Date None Reported, Pcp PCP - General Family Medicine 07/20/23
--- OUTSIDE RECORDS SUMMARY | 2024-01-29 15:58 | XMS_ITS | Clinical Summary ---
Author Organization [facility] Address [address] [place] [address] Care Team Providers Care Supervisor Finishing Department Name Role Phone Md FAMILIA Cueva Primary Care Provider [phone] Source Comments You are receiving this document as you are listed as the primary care provider,follow-up provider, or the patient has been referred to you for consultation.This is in compliance with the Medicare and[facility] Cent[facility] EHR Incentive Program,which states Providers who transition their patient to another setting of careor provider of care or refers their patient to another provider of care shouldprovide summary care record for each transition of care or referral. [facility] Allergies Active Allergy Reactions Criticality Noted Date Comments Cephalexin Angioedema High 07/16/2016 Latex Hives 10/04/2010 Spermaceti Wax 02/13/2011 PN: allergic to spermacides Medications Medication Sig Dispensed Refills Start Date End Date Status Vit-Fe Fumarate-FA ( OR)Indications:Fall down stairs,Right wrist sprain,Left ankle sprain,Sprain of left foot Take 1 tablet by mouth daily (every 24 hours). 07/01/2011 Active atomoxetine (STRATTERA) 40 MG capsule Take 40 mg by mouth daily. 0 01/27/2019 Active amphetamine-dextroam phetamine (ADDERALL XR) 20 MG 24 hour release capsule Take 40 mg by mouth daily. 0 01/08/2019 Active busPIRone (BUSPAR) 5 MG tablet Take 3 Tablets by mouth two times a day. 0 01/08/2019 Active EPINEPHrine (EPIPEN) 0.3 MG/0.3ML injection INJECT CONTENTS OF 1 PEN ONE TIME NEEDED FOR ALLERGIC REACTION 0 01/08/2019 Active VYVANSE 30 MG capsule Take 30 mg by mouth daily. 0 01/30/2019 Active LORazepam (ATIVAN) 0.5 MG sublingual tablet 01/10/2021 Active Fyniepty-Gdl-Tc-FA ( 1 + IRON OR) Take 1 Tablet by mouth. Active Blood Pressure Monitoring (BLOOD PRESSURE KIT) Take blood pressure twice daily. Call if your blood pressure is above 150/100 (either number). 04/12/2021 Active ADDERALL XR 10 MG 24 hour release capsule TAKE 1 CAPSULE BY MOUTH IN THE MORNING WITH 30 MG CAPSULE 04/07/2021 Active ADDERALL XR 30 MG 24 hour release capsule TAKE 1 CAPSULE BY MOUTH ONCE DAILY IN THE MORNING WITH A 10MG CAPSULE 04/07/2021 Active amphetamine-dextroam phetamine (ADDERALL) 20 MG tablet TAKE ONE-HALF TABLET BY MOUTH IN THE MORNING, AT NOON AND 1 AT 4 PM 03/18/2021 Active Norethindrone, Contraceptive, (EDGAR) 0.35 MG tablet Take 1 Tablet by mouth daily. 84 Tablet 3 04/19/2021 Active Active Problems Problem Noted Date Diagnosed Date ADHD (attention deficit hyperactivity disorder) 04/21/2021 Overview (04/21/2021): Diagnosed by psychiatry, [facility], in 2007 History of delivery, currently 04/21/2021 Overview (04/21/2021): X 2 (one classical for omphalocele) Sensorineural hearing loss, asymmetrical 018 Tinnitus of both ears 12/28/2017 Varicose veins of right lower extremity 10/30/19 18 Gallbladder polyp 09/14/2017 Overview (04/21/2021): US 08/24: Tiny gallbladder polyps. These are most likely cholesterol polyps given their size, and sonographic surveillance in 6-12 months is suggested. Controlled substance agreement signed 05/18/2017 Overview (04/21/2021): Adderall for ADHD, by Teresa Chaudhary MD on 05/18/2017 Mild intermittent asthma without complication Nicotine addiction 03/27/2011 Obesity 03/11/2010 Overview (11/12/2015): LW Modifier: BMI 34 Bipolar affective disorder 02/14/2004 Resolved Problems Problem Noted Date Diagnosed Date Resolved Date BV (bacterial vaginosis) 01/11/201112/2013 Encounter for supervision of other normal 03/11/2010 11/25/2010 Overview (11/29/2016): LW Modifier: LMP 01/13/2010, SGA LW Onset: edc10/29/10 ; Preg Normal Not 1st Preg Threatened premature labor, antepartum 03/11/2010 11/25/2010 Overview (11/29/2016): LW Modifier: Term delivery LW Onset: 08/2009 ; Labor >22 <37Weeks Immunizations Name Administration Dates Next Due 4vHPV (Gardasil) 05/02/2007,07/17/2006, 7 DTP 03/08/1993,1992,1992 DTP-Hib (Tetramune) 08/22/1994 DTaP 06/08/1997 HepA, Unspecified Formulation 11/10/2003,11/01/ 000,04/28/1999 HepB Ped/Adol (0-18 yrs) 08/22/1994,1992,0 1992 Hib, Unspecified Formulation 03/08/1993,09/22/18 93,1992 MCV4 (Menactra) 04/19/2006 MMR 01/30/2020(Deferred: Other),12/20/2011,06/08/1997,08/19/1993 OPV, Trivalent (Orimune or tOPV) 06/08/1997,02/09,1992,1992 Td 11/10/2003 Td (7+ yrs) 01/08/2020(Deferred: Other) Tdap 11/20/2016,06/01/2015,09/15/2009 ,05/02/2007 Varicella 06/01/2015,02/22/2006,08/22/1994 Social History Tobacco Use Types Packs/Day Years Used Date Smoking Tobacco: Former Cigarettes Smokeless Tobacco: Former Quit: 03/20/2011 Alcohol Use Standard Drinks/Week Comments Not Currently 0.8 (1 standard drin k = 0.6 oz pure alcohol) Alcoholic Drinks/day: Freq:Never; PHQ-2 Answer Date Recorded PHQ-2 Score 0 04/19/2021 Depression Answer Date Recor ded Last EPDS Total Score 1 10/10/2022 Last EPDS Self Harm Result 0-->never 10/10 Sex and Gender Information Value Date Recorded Sex Assigned at Not on file Gender Identity Not on file Sexual Orientation Not on file Last Filed Vital Signs Vital Sign Reading Time Taken Comments Blood Pressure 126/67 04/19/2021 1:34 PM NEWSPAPER INSERTER Pulse 97 04/19/2021 1:34 PM NEWSPAPER INSERTER Temperature 36.6 ??C (97.9 ??F) 07/01/2011 4:09 PM CD T Respiratory Rate 16 07/01/2011 4:09 PM CDT Oxygen Saturation 98% 03/27/2011 2:24 PM NEWSPAPER INSERTER Inhaled Oxygen Concentration - - Weight 74.8 kg (165 lb) 04/19/2021 1:34 PM NEWSPAPER INSERTER Height 160 cm (5' 3) 12/06/2010 10:53 AM CDT Body Mass Index - - Plan of Treatment Health Maintenance Due Date Last Done Comments Cervical Cancer Screening Due 1992 Hep C Screening (Preventive Services) 1992 Asthma ACT 1996 Pneumococcal (1 - PCV) 1998 Adult Preventive Visit 2010 COVID-19 Vaccine ( - 2023- season) 2023 Influenza (#1) 2023 DTaP/Tdap/Td (10 - Tdap) 11/20/2026 017, 06/01/2015, 09/15/2009, Additional history exists Zoster/Shingles (1 of 2) 2042 HepB Completed 08/22/1994, 05/11, 1992 Hib Completed 08/22/1994, 02/09, 1992, Additional history exists IPV (Polio) Completed 06/08/1997, 02/09, 1992, Additional history exists HepA Completed 11/10/2003, 10/08, 04/28/1999 MCV4 Aged Out 04/19/2006 No longer eligi ble based on patient's age to complete this topic HPV Vaccine Completed 05/02/2007, 07/08, 04/19/2006 HIV Screening (Preventive Services) Completed 04/10/2021, 03/11/2010 RSV Aged Out No longer eligi ble based on patient's age to complete this topic Procedures Procedure Name Priority Date/Time Associated Diagnosis Comments HIV ANTIBODY Routine 03/11/2010 3:33 PM NEWSPAPER INSERTER from Last 3 Months or Most Recently Relevant to Health Maintenance Results * HIV ANTIBODY (03/11/2010 3:33 PM NEWSPAPER INSERTER) HIV 1/HIV 2 Non-React No normal range HP CONVERSION 03/11/2010 3:33 PM NEWSPAPER INSERTER Daksha Moreira APRN, MAST MAKER LAB_1 HP CONVERSION from Last 3 Months or Most Recently Relevant to Health Maintenance Care Teams Supervisor Finishing Department Relationship Specialty Start Date End Date Md Hammad, [place] [address] PCP - General 07/12/10
--- OUTSIDE RECORDS SUMMARY | 2024-01-29 15:58 | XMS_ITS | Clinical Summary ---
Author Organization [facility] Address [place], [place] [address] Care Team Providers Care Eye Technician Name Role Phone Pcp, No Primary Care Provider Unavailabl e Allergies Active Allergy Reactions Criticality Noted Date Comments Cephalexin Angioedema 07/16/2016 Latex Hives,Angioedema High 12/02/2015 Nonoxynol 9 Throat Swelling/Closing High 07/17/2021 Allergic to spermicide Spermaceti Throat Swelling/Closing High 02/13/2011 PN: allergic to spermacides Medications Medication Sig Dispensed Refills Start Date End Date Status albuterol (PROVENTIL) 0.083 % neb solutionIndications: Exacerbation of asthma, unspecified asthma severity, unspecified whether persistent Inhale 3 mL via a nebulizer every 4 hours if needed. 1 box 08/27/2017 Active albuterol HFA 90 mcg/actuation inhalerIndications:M ild intermittent asthma without complication Inhale 1-2 Puffs by mouth every 4 hours if needed. 2 Inhaler 3 05/09/2018 Active budesonide (PULMICORT) 90 mcg/actuation inhalerIndications:M ild intermittent asthma with acute exacerbation Inhale 90 mcg by mouth 2 times daily. 1 Inhaler 5 06/13/2018 Active EPINEPHrine (EPIPEN) 0.3 mg/0.3 mL injectionIndications :Allergic reaction, initial encounter Inject 0.3 mg intramuscular one time if needed for Allergic Reaction. 2 Each 01/08/2019 Active dextroamphetamine/am phetamine (ADDERALL XR ORAL) Take 40 mg by mouth once daily. Active 25/iron fum/folic/dha (-1 ORAL) Take 1 Tablet by mouth. Active Blood Pressure MonitorIndications:N ormal labor and delivery,, delivered Take blood pressure twice daily. Call if your blood pressure is above 150/100 (either number). 1 Each 04/12/2021 Active ondansetron (ZOFRAN ODT) 4 mg disintegrating tabletIndications:CO VID-19 Place 1 Tablet (4 mg) on the tongue every 8 hours if needed for Nausea/Vomiting. 12 Tablet 11/15/2021 Active folic acid 1 mg tablet Take 1 mg by mouth once daily. 02/07/2023 Active Active Problems Patient Care Coordination No te Formatting of this note migh t be different from the original. There is a resolved Delivery Plan of Care note under Case Management tab dated 01/22/2018 Johana Vieira RN .................... 01/22/2018 9:57 AM Problem Noted Date Diagnosed Date 27 weeks gestation of 05/01/2023 Twin in second trimester 05/01/2023 Complete placenta previa with hemorrhage, second trimester 05/01/2023 Previous section complicating 05/01/2023 Bipolar I disorder, single manic episode 022 Overview (08/16/2021): Created by [employer]s [employer] [facility] Annotation: Jul 07 2011 3:48PM - Suha Dyer: Stopped meds 2008 Replacement Utility updated for latest IMO load De Quervain's tenosynovitis 08/16/2021 Overview (08/16/2021): Created by Conversion [facility] 08/16/2021 Overview (08/16/2021): Created by Conversion Replacement Utility updated for latest IMO load Major depressive disorder, recurrent episode 01/2022 Overview (08/16/2021): Created by Conversion Replacement Utility updated for latest IMO load Mixed anxiety depressive disorder 08/16/2021 Overview (08/16/2021): No meds for depression/anxiety. Most of her symptoms, per her report, were secondary to her social situation during the fall of 2018. Her house (trailer) was deemed inhabitable and her kids were taken off her custody temporarily until appropriate living arrangements were made. She was able to move with her to [place] and a 5-bedroom 3-bathroom house and was able to get full custody of her 7 out of 8 children by early 2019 and as of 10/2019 her 8th child is now with them. The reason her 8th child returned a little later was due to the special needs required for his care. She reports feeling well today with no concerns from a mood-standpoint. Last Assessment & Plan: Psychiatry visit is being coordinated. EPDS score 6 and GISEL-7 score 3 when last checked. She now has custody of 7 of her children and that has helped. Nausea 08/16/2021 Overview (08/16/2021): Created by Conversion Other specified symptom asso ciated with female genital organs 08/16/2021 Overview (08/16/2021): Created by Conversion History of delivery, currently 04/21/2021 Overview (08/16/2021): X 2 (one classical for omphalocele) Normal labor and delivery 04/12/2021 , delivered 04/12/2021 Maternal care for unspecifie d type scar from previous delivery 01/09/2020 Overview (08/16/2021): Discussed timing and mode of delivery via repeat at 36w0d - 37w0d given history of prior classical. MFM did not give specific recommendations regarding this, but since her trimester US, will plan repeat section on 02/02/2020 at 38+0 weeks, since 37+6 weeks is on a Sunday. Plan delivery in [place]. Encounter for immunization 01/01/2020 Overview (08/16/2021): Rubella equivocal - MMR in period 37 weeks gestation of 12/29/2019 Overview (08/16/2021): Will order COVID testing at the time of the next visit for 01/30/2020. OB education up to date. Late care 12/29/2019 Overview (08/16/2021): She found out she was in the 3rd trimester, and dating is by 34+1 week US. That US showed growth at the 67%ile with EFW of 2543 gm. [facility] recommended follow up US in 2-3 weeks for growth based upon dating in the 3rd trimester. This was ordered today. Personal history of contraception 12/29/2019 Overview (08/16/2021): 12/28 EK: patient reports prior conception (7th ) while an IUD was in place. She also reports failing AGRICULTURAL EXTENSION OFFICER. She is considering the NuvaRing for contraception following this . She and her are considering a 10th child in the future. Sampling of cervix for Papanicolaou smear comple leticia 12/29/2019 Overview (08/16/2021): Patient is due for Pap test. We will defer for PP visit given her current gestational age. Patient in agreement. Vaginal discharge 12/29/2019 Overview (08/16/2021): Possible yeast infection at time of initial exam. Vaginitis panel returned negative. She was treated for BV with metronidazole for 7 days and vaginal yeast with clotrimazole for 7 days. Symptoms have improved. 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 Level II US returned normal. Last Assessment & Plan: Plan MFM consult and Level II US. Stress 02/27/2019 Overview (08/16/2021): Please see details above under depression anxiety Incomplete 09/24/2018 Sensorineural hearing loss, asymmetrical 018 Tinnitus of both ears 12/28/2017 Varicose veins of right lower extremity 10/30/19 18 Tension type headache 10/29/2017 Gallbladder polyp 09/14/2017 Overview (09/14/2017): US 08/24: Tiny gallbladder polyps. These are most likely cholesterol polyps given their size, and sonographic surveillance in 6-12 months is suggested. Controlled substance agreement signed 05/18/2017 Overview (05/18/2017): Adderall for ADHD, by Teresa Chaudhary MD on 05/18/2017 Mild intermittent asthma without complication Nicotine addiction 03/27/2011 Bipolar affective disorder 02/14/2004 ADHD (attention deficit hyperactivity disorder) Overview (05/04/2017): Diagnosed by psychiatry, [facility], in 2007 Resolved Problems Problem Noted Date Diagnosed Date Resolved Date growth retardation, 1,500-1,749 grams 01/21/2018 03/18/2018 Overview (01/21/2018): 01.10.2018 US OB FOLLOW UP PER FETUS: INDICATION: IUGR, OMPHALOCELE ?? IMPRESSION: Intrauterine at 35w 3d. presentation is Cephalic. EFW 1550 grams, percentile: < 3. Growth parameters and estimated weight are small for gestational age with suboptimal interval growth. The amniotic fluid volume appears normal. Placental location: Anterior There is no evidence of placenta previa Normal transabdominal cervical length. BPP was 01/16 Umbilical artery and MCA Dopplers are both normal ?? The following abnormality/ abnormalities were identified today: 1. 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 O/HC ratio was 0.22 2. IUGR: There has been suboptimal interval growth with AC and HC both crossing centiles Morbid obesity with BMI of 40.0-44.9, adult 01/21/2018 03/18/2018 Maternal morbid obesity, ant epartum, third trimester 01/21/2018 04/04/2018 Primary Classical d elivery, large Omphalocele 01/21/2018 03/18/2018 Poor growth affecting management of mother in third trimester 12/05/2017 03/18/2018 Ventricular septal defect (V SD) of fetus in quispe , antepartum 11/26/2017 03/18/20 18 Omphalocele 10/03/2017 11/26/2017 [facility] Supervision of high-risk 10/03/2017 03/18/2018 Overview (01/17/2018): [facility] OB PATIENT [facility] PATIENT : Arturo It's a Boy! NEXT VISIT ALERTS: PLANS & FUTURE APPOINTMENTS: - OB visits through: 01/17/18 with H&P with MD TESTING PLAN: Weekly at 28 weeks with doppler - Testing through: 01/17/18 GROWTH PLAN: ? -Next Growth u/s: DELIVERY PLAN: on 01/10 delivery 37-38 weeks due to IUGR - Scheduled delivery: 01/21/18 @ 1400 - Preferred delivery location: [facility] PRIMARY DIAGNOSIS: 27 y.o. Estimated Date of Delivery: 02/11/18 : Omphalocele containing Liver/Bowel/Stomach IUGR VSD 01/03 - had abnormal dopplers 01/10: Normal Maternal: Term X 7 D&C x2 ADHD/Dyslexia Depression as teenager Asthma BMI 36 LAST GROWTH: 01/10/18 35w3d EFW 1550 grams, percentile: < 3 12/17/17 32w0d EFW 1435 grams, percentile: < 3. 11/26/17 29w0d EFW 1061 grams, percentile: 5. AC <3%tile, measurement limited by omphalocele 10/29/17 25w0d EFW 559 grams, percentile: < 3. AC<3%tile due to omphalocele 10/03/17 21w2d EFW 329 grams, percentile: 6. 09/24/17 19w4d EFW 246 grams, percentile: 7 07/11/17 8w6d?? ECHO: 12/17/17: Small to moderate perimembranous ventricular septal defect. 10/29/17: Small to moderate perimembranous ventricular septal defect. REFERRING PHYSICIAN/PHONE/LAST UPDATE: Dr Teresa Childress [phone] Primary MD approves scheduling of recommended ultrasounds/testing. SPECIALISTS/CONSULTS: Neonatology 01/10/18 Pediatric Surgery: 11/26 Dr. Hitchcock [facility] Tour ALVAREZ signed for [facility]: Signed 10/29/17 CARE COORDINATION: Johana VieiraRN/Marva Lai RN/Trisha Tobar RN/Lea Khan RN [phone] BABY NURSE: DIAMOND Guillory BEAD FORMING MACHINE SET UP OPERATOR: Pager: [phone] GENETICS: eBto Enciso done 10/08/17-low risk PROCEDURES: 12/18 MRI [facility] 09/11/17 Maternal abd U/S 1. No shadowing calculi or secondary signs for cholecystitis. 2. Normal caliber biliary tree. 3. Tiny gallbladder polyps. These are most likely cholesterol polyps given their size, and sonographic surveillance in 6-12 months is suggested. PERTINENT MEDS: ROUTINE OB: Flu Shot: Declined Tdap vaccine: Declined ANXIETY/DEPRESSION SCREEN: Initial screen: Date: 10/29/17 PHQ-9 score: 0 GISEL-7 score: 7 - SW messaged Re-screen: Date: 12/17/17 PHQ-9 score: 0 GISEL-7 score: 0 Previous history of anxiety or depression? YES ROUTINE LABS: Blood type: A positive Antibody screen: negative Last pap: 06/22/16=normal Plan for Gestational Diabetes screenin11/26/17: GCT: Passed 126. Treponema Pallidum drawn: 11/26/17: negative GBS: 01/17/18: Hemoglobin: Initial 14.3 (06/28/17) 12.8 (08/20/17) 28 wk: 11/26/17: 12.5 36 wk 01/17/18: 13.6 Repeat hgb anemic and compliant every 4 wks if/until >11.0 ADDITIONAL PERTINENT LABS: 06/08/17 UDS=negative DELIVERY PLANS: PPTL: No Is Medical assistance? YES CHECKLIST FOR SCHEDULING PROCEDURES: Call [phone] for Singh and [phone] for [place] (UTD cerclages Day Surgery [id number]) Procedure: C/ Hospital: [facility] Unit: L&D Date & Time of procedure: 01/21/18 at 1400pm Laura Score if induction: N/A Pertinent information: Omphalocele containing liver, bowel and stomach Gestational age on procedure date? 37w0d MD doing procedure: Dr. Douglas Date scheduled: 01/10/18 when pt was 35w3d; Rescheduled 01/17/18 Scheduling MD & RN: Dr Boggs/NORBERT Covington Notifications: Hospitalist Delivery-OBH lens and frames prescription clerk notified through [employer] inbox? Yes [facility] MD lens and frames prescription clerk notified via [employer] inbox? Yes Primary MD notified via [employer] inbox? No Primary MD clinic called if not Progressive Carebertha? No On [facility] calendar? Yes Care Coordination notified? Yes H&P/PPTL: PPTL permit signed? Not Applicable H&P and Plan in chart? No [facility] appointment made for H&P with RELEASE ENGINEER within 7 days of surgical procedure? Yes Date: 01/17/18 with MD Patient notification: Patient notified of procedure date? Yes Written admission instructions given to patient via AVS? Given 01/10/18 PLAN OF CARE: 01/10/18 per SS -Continue with routine care through [facility]. -Continue weekly testing -Plan for delivery by at 37-38 weeks based on growth interval ?? anomaly 09/26/2017 11/26/2017 omphalocele in , antepartum 09/26/2017 03/18/2018 Overview (01/21/2018): Contains liver, bowel, stomach Mild intermittent asthma wit h acute exacerbation 09/14/2017 03/18/2018 Supervision of wit h grand multiparity, antepartum 06/08/2017 03/18/2018 Overview (07/13/2017): Provider: Teresa Chaudhary MD - please page or call for delivery Complications: grand multiparity. OB COUNSELING: General: Nutrition, vitamins, weight gain, seat belts, exercise, hazards (smoking, alcohol, drugs, overheating, cats, raw meat, unpasteurized milk), discomfort and relief measures, warning signs 07/13/2017 Rh status - positive. Genetic testing options - declined Gestational glucose screen and hemoglobin Tdap (27-36 weeks) classes/tour Breast/bottle Pre-term labor symptoms Baby M.D. Circumcision kick counts Group B strep Labor signs Contraception (normal spontaneous vaginal delivery) 01/12/2017 11/26/2017 Supervision of other normal , antepartum 06/19/2016 05/04/2017 Overview (06/22/2016): 26 y.o. Hx: depression H/O vag delivery x 6 (09/15/2009- male (Arturo), 10/12/2010- female (Balbir), 12/18/2011- female (Mildred), 01/12/2013- female (Arpita), 05/07/2014- male (Leroy), 05/31/15-male (Abdirahman) BMI:# 33 Recommended wt gain 15 lbs Right ovarian cyst (first trimester hemorrhagic, resolved now simple at 11 weeks 5 cm size) Declines genetic screen Peds: Dr Gaona : Arturo Abnormal in first trimester 01/10/2016 12/22/2016 Overview (01/10/2016): Abnormal rising quants. D&C planned 01/10 Repeat beta HCG level on 01/11 Bleeding in early 01/04/2016 01/05/2017 Teen 08/25/2009 01/04/2016 labor 08/25/2009 01/04/2016 Heart burn 01/21/2018 RLQ abdominal pain 8 Hemorrhagic cyst of ovary Spasm of right side abdominal muscles 11/26/2017 Grand multiparity with current 05/04/2017 Short interval between pregn ancies affecting , antepartum 05/04/2017 Decreased movements in third trimester 01/21/2018 Immunizations Name Administration Dates Next Due DTP 03/08/1993,1992,1992 DTP-HIB 08/22/1994 DTaP 06/08/1997 Hepatitis A (Peds),Unspecified 11/10/2003,1999 Hepatitis A, Unspecified 11/02/1999 Hepatitis B (Peds) 08/22/1994,1992, 993 Hib Conjugate, Unspecified 03/08/1993,1992 ,1992 Human Papilloma Virus Vaccine 05/02/2007, 007,04/19/2006 MMR 12/20/2011,06/08/1997,08/19/1993 MMR, Unspecified 06/08/1997,08/19/1993 Meningococcal Vaccine (Menactra) 04/19/2006 Oral Polio Vaccine 06/08/1997,03/08/1993, 993,1992 Td (Age >=7 Years) 11/10/2003 Tdap 11/20/2016,06/01/2015,09/15/2009 ,05/02/2007 Varicella Vaccine 06/01/2015,02/22/2006,08/22/18 95 Family History Medical History Relation Name Comments No Known Problems Brother Other Father Does not know b iological father No Known Problems Maternal Grandfather No Known Problems Maternal Grandmother Allergies Mother Psychiatric illness Mother depressi on Thyroid Disease Sister Cancer-breast No Family History Cancer-colon No Family History Cancer-ovarian No Family History Cancer-prostate No Family History Relation Name Status Comments Brother Alive Father Alive Maternal Grandfather Alive Maternal Grandmother Alive Mother Alive Sister Alive Social History Tobacco Use Types Packs/Day Years Used Date Smoking Tobacco: Never Smokeless Tobacco: Never Tobacco Cessation:Counseling Given: Not Answered Alcohol Use Standard Drinks/Week Comments No 0 (1 standard drink = 0.6 oz pur e alcohol) PHQ-2 Answer Date Recorded PHQ-2 Score 6 01/15/2019 Sex and Gender Information Value Date Recorded Sex Assigned at Not on file Gender Identity Not on file Sexual Orientation Not on file Obstetrics History Para Term AB IAB SAB Ectopic Multiple Livin g Live Births 17 11 10 0 4 0 2 0 0 10 10 Date Outcome GA Total Labor Labor/2nd/3rd Weight Sex Type Anes PTL Megha A1 A5 Name Clin Term 2006 AB ECTOPI C 9 AB ELECTI VE AB 2009 Term 38w 3d 3.25 kg (7 lb 2.8 oz) M Vag-Sp ont None Y Livin g 9 9 Arturo arreguin Complications:None Delivery Location:[facility] Comments:Teen Pregnanc y 2010 Term 37w 0d 3.26 kg (7 lb 3 oz) F Vag-Sp ont None N Livin g Complications:None Comments:Retained POC 1 week PP - D&C 2011 Term 40w 0d 4.03 kg (8 lb 14 oz) F Vag-Sp ont None N Livin g Complications:None 2012 Term 40w 0d 4 kg (8 lb 13 oz) F Vag-Sp ont None N Livin g Complications:None 2014 Term 38w 0d 4 kg (8 lb 13 oz) M Vag-Sp ont None N Livin g Complications:None Comments:Attempted Epi dural - unsuccessful - Needed 4 blood patches 2015 Term 40w 0d 4 kg (8 lb 13 oz) M Vag-Sp ont None N Livin g Complications:None 2015 SAB 13w 0d SPONTA NEOUS Comments:D&C 2016 Term 40w 3d 3.99 kg (8 lb 12.7 oz) F Vag-Sp ont None N Livin g 5 8 PELTI ER,BG IVORY jaramillo Complications:None Delivery Location:[facility] 2017 Term 37w 0d 0h 02m 2.4 kg (5 lb 4.7 oz) M CS-Cla ssical Spinal Livin g 8 8 PELTI ER,BB IVORY Menezes r/Ahr ens Complications:None,Known fet al anomaly, antepartum Delivery Location:[facility] (ANW [id number] [facility]) Comments:baby with omp alocele, IUGR, VSD 2018 SAB 9w0 d 2019 Term 37w 3d 3.29 kg (7 lb 4 oz) M CS-LTr anv Spinal Livin g Delivery Location:[facility] 2021 Para 0h 10m 0h 10m 2.47 kg (5 lb 7.1 oz) F None Rasta ZELAYA ER,BG IVORY Beltran letTana ield, DO Complications:Precipitous la bor (< 3 hours) Delivery Location:Hospital ( [facility]) Comments Last was a C-Secti on and did a T-Cut on uterus causing baby to have organs born on the outside of body. Rea Lisa MULTIMEDIA SPECIALIST 05/22/2018 1:01 PM No other issues/no episiotomy. Rea Lisa MULTIMEDIA SPECIALIST 05/22/2018 1:02 PM Last Filed Vital Signs Vital Sign Reading Time Taken Comments Blood Pressure 131/63 05/17/2023 7:00 PM P[employer]ODUCTS SALES REPRESENTATIVE Pulse 90 05/17/2023 7:00 PM P[employer]ODU[employer] SALES REPRESENTATIVE Temperature 36.6 ??C (97.9 ??F) 05/17/2023 7:00 PM CS T Respiratory Rate 18 04/30/2023 4:38 PM [employer] SALES REPRESENTATIVE Oxygen Saturation 98% 05/17/2023 7:00 PM P[employer]ODU[employer] SALES REPRESENTATIVE Inhaled Oxygen Concentration - - Weight 112.3 kg (247 lb 9.6 oz) 04/30/2023 4:38 PM P[employer] SALES REPRESENTATIVE Height 160 cm (5' 3) 04/30/2023 4:38 PM P[employer] SALES REPRESENTATIVE Body Mass Index 43.86 04/30/2023 4:38 PM [employer] SALES REPRESENTATIVE Plan of Treatment Health Maintenance Due Date Last Done Comments Pap test for age 21-65 06/23/2019 06/22/2016 BMI (ht and wt on same day) for age 18+ 01/17/2020 01/16/2019, 01/08/2019, 07/31/2018, Additional history exists Depression screening for age 12+ 01/18/2020 01/17/2019, 01/16/2019, 01/15/2019, Additional history exists COVID-19 vaccine series ( season) 2023 Influenza for age 9-49 12/09/2023 Tetanus booster 11/20/2026 11/20/2016, 05/11, 09/15/2009, Additional history exists Tdap Completed 11/20/2016, 05/11, 09/15/2009, Additional history exists Hepatitis C screening for age 18-79 Completed 12/18/2016 HIV for age 15-65 Completed 04/10/2021, , 06/19/2016, Additional history exists Pneumococcal series for age 6-64 Aged Out No longer eligible based on patient's age to complete this topic Procedures Procedure Name Priority Date/Time Associated Diagnosis Comments ANTI HIV 1/2 Today 04/10/2021 10:19 PM [employer] SALES REPRESENTATIVE ANTI HCV Routine 12/18/2016 3:58 PM CDT Grand multiparity with current , third trimester Supervision of other normal , antepartum DEALMAKER THIN PREP PAP SCREEN IMAGED Routine 06/22/2016 11:52 AM CDT Screening for malignant neoplasm of cervix from Last 3 Months or Most Recently Relevant to Health Maintenance Results * ANTI HIV 1/2 (04/10/2021 10:19 PM [employer] SALES REPRESENTATIVE) HIV-1/HIV-2 ANTIBODY Non-Reacti ve Non-Reacti ve 04/11/2021 3:06 PM P[employer]ODUCTS SALES REPRESENTATIVE [facility] Comment:HIV-1 p24 and HIV-1/ HIV-2 Ab not detected. Blood BLOOD SPECIMEN / Unknown Venipuncture / Unknown 04/10/2021 10:19 PM P[employer]ODUCTS SALES REPRESENTATIVE 04/10/2021 10:28 PM P[employer]ODU[employer] SALES REPRESENTATIVE Marianne Fairbanks DO [facility] [address] [place] [address], * ANTI HCV (12/18/2016 3:58 PM CDT) HEPATITIS C ANTIBODY Non-Reacti ve Non-Reacti ve 12/18/2016 11:31 PM CDT [facility] Blood BLOOD SPECIMEN / Unknown Venipuncture / Unknown 12/18/2016 3:58 PM CDT 12/18/2016 3:58 PM CDT Narrative [facility] - 12/18/2016 11:31 PM CDT Antibodies to HCV not detected; does not exclude the possibility of exposure to HCV. Teresa Chaudhary MD [facility]END [facility] [address] [place] [address], [place] * DEALMAKER THIN PREP PAP SCREEN IMAGED (06/22/2016 11:52 AM CDT) Case Report Gynecologic Cytology Report ? Case: [id number] ? Authorizing Provider: ??Ana Holliday DO ?Collected: ? 06/22/2016 1152 ? Ordering Location: ? [facility] ?Received: ?06/22/2016 1152 ? [facility] ? First Screen: ?Jen Velazquez ? Specimen: ?DEALMAKER ThinPrep Vial Screening, Cervical ? 06/29/2016 2:14 PM CDT [facility] INTERPRETATION/ RESULT NEGATIVE FOR INTRAEPITHELIAL LESION OR MALIGNANCY (NIL) (none) 06/29/2016 2:14 PM CDT [facility] IMEN ADEQUACY Satisfactory for evaluation Endocervical component present Obscuring Inflammation 06/29/2016 2:14 PM CDT [facility] HPV REQUEST HPV if ASCUS 06/29/2016 2:14 PM CDT [facility] Date of LMP 06/29/2016 2:14 PM CDT [facility] Last Pap Date 2015/ outside of [facility] 06/29/2016 2:14 PM CDT [facility] Last Pap Result NIL 7 2:14 PM CDT [facility] Abnormal Pap or [place] Bx in last 5 years No 06/29/2016 2:14 PM CDT [facility] Menstrual Status 06/29/2016 2:14 PM CDT [facility] [place] Bx Done Today No 06/29/2016 2:14 PM CDT [facility] Additional Information None given 06/29/2016 2:14 PM CDT [facility] Automated Review Successful 06/29/2016 2:14 PM CDT [facility] Comment:Specimen processed s uccessfully by automated roving marker device, ThinPrep Imaging System, [employer] Note The pap test is a screening technique, not a diagnostic procedure. ??It is used primarily to screen for squamous cancers and precursor lesions. ??Published studies have shown that it is subject to both false negative and false positive results. ??The pap test should not be used as the sole means to diagnose or exclude pre-malignant and malignant lesions. Interpreted at [facility] ([facility], [facility], [facility], [facility], [facility], [facility], [facility]) 06/29/2016 2:14 PM CDT [facility] Other (Cervical) 06/22/2016 11:52 AM CDT 06/22/2016 11:52 AM CDT Ana Holliday DO PATHOLOGY/CYTOLOGY [facility] [address] [place] [address], from Last 3 Months or Most Recently Relevant to Health Maintenance Advance Directives * Full Code (Latest Code Status on File) Date Activated Date Inactivated Comments 04/10/2021 10:04 PM 04/12/2021 3:01 PM Question Answer Comments Code Status Discussion: Reviewed Preferences * Full Code Date Activated Date Inactivated Comments 09/24/2018 7:42 PM 11/01/2018 12:56 PM * Full Code Date Activated Date Inactivated Comments 01/21/2018 10:35 AM 01/24/2018 6:32 PM * Full Code Date Activated Date Inactivated Comments 01/12/2017 1:06 AM 01/13/2017 1:01 PM * Full Code Date Activated Date Inactivated Comments 01/11/2017 10:52 PM 01/12/2017 1:06 AM Care Teams Eye Technician Relationship Specialty Start Date End Date Pcp, No . PCP - General 04/30/23
--- OUTSIDE RECORDS SUMMARY | 2024-01-29 15:58 | XMS_ITS | Encounter Summary ---
Author Organization [facility] Address [address] [place] [address] Care Team Providers Care Television Newscast Director Name Role Phone None Reported, Pcp Primary Care Provider Unavail able Encounter Details Date Type Department Care Team (Late st Contact Info) Description 10/23/2023 Orders Only Department of Family Medicine, [facility], in [place], [place] [address] [place] [address] David Perez M.D., M.S. [address] [place] [address] Social History Tobacco Use Types Packs/Day Years Used Date Smoking Tobacco: Former Cigarettes Q uit: 2018 Smokeless Tobacco: Never Alcohol Use Standard Drinks/Week Comments Never 0 (1 standard drink = 0.6 oz pur e alcohol) [facility] Utilities Answer Date Recorded In the past 12 months has e [employer], gas, oil, or water [employer] threatened to shut off services in your [...] and Family Not on file 01/06/2020 Attends Yazidi Services Not on file 01/05 Do you belong to any clubs o r organizations such as buddhism groups, unions, fraternal or athletic groups, or [...] Answer Date Recorded PHQ-2 Score 0 08/02/2023 [facility] of Occupat ional Health - Occupational Stress [...] your living situation today? [facility] live 05/17/2023 Education Answer [...] documented as of this encounter Care Teams Television Newscast Director Relationship Specialty Start Date End Date None Reported, Pcp PCP - General Family Medicine 07/20/23 documented as of this encounter
--- OUTSIDE RECORDS SUMMARY | 2024-01-29 15:58 | XMS_ITS | Encounter Summary ---
Author Organization [facility] Address [address] [place] [address] Care Team Providers Care Operations Intelligence Name Role Phone None Reported, Pcp Primary Care Provider Unavail able Encounter Details Date Type Department Care Team (Latest Contact Info) Description 05/01/2023 Intake [facility] Social History Tobacco Use Types Packs/Day Years Used Date Smoking Tobacco: Former Cigarettes Q uit: 2018 Smokeless Tobacco: Never Alcohol Use Standard Drinks/Week Comments Not Currently 0 (1 standard drink = 0.6 oz pur e alcohol) [facility] Utilities Answer Date Recorded In the past 12 months has e [employer], gas, oil, or water [employer] threatened to shut off services in your [...] and Family Not on file 01/06/2020 Attends Mosque Services Not on file 01/05 Do you belong to any clubs o r organizations such as congregational groups, unions, fraternal or athletic groups, or [...] Answer Date Recorded PHQ-2 Score 0 08/02/2023 [facility] of Occupat ional Health - Occupational Stress [...] documented as of this encounter Care Teams Operations Intelligence Relationship Specialty Start Date End Date None Reported, Pcp PCP - General Family Medicine 07/20/23 documented as of this encounter
[2024-01-29 20:03] LABS: Chlamydia DNA Amplified* NOT DETECTED (No Detected); GC DNA Amplified* NOT DETECTED (No Detected)
== END 2024-01-29 15:56 | disposition home or self-care (01) ==
PROVIDERS: Visit Provider Registered Nurse
DX: Z34.91 Encounter for supervision of normal pregnancy, unspecified, first trimester (principal); Z3A.09 9 weeks gestation of pregnancy
CPT/HCPCS: 76817; 82565; 82570; 84156; 84450; 84460; 84520; 86592; 86703; 86704; 86706; 86762; 86787; 86803; 86850; 86900; 86901; 87086; 87340; 87491; 87591

== ENCOUNTER 2024-02-26 14:30 | Outpatient (CLI) | payer MEDICAID, SELFPAY ==
--- OUTSIDE RECORDS SUMMARY | 2024-03-01 03:37 | XMS_ITS | Clinical Summary ---
Author Organization [facility] Address [address] [place] [address] Care Team Providers Care Chief Specialist Leed Name Role Phone Lucretia, Md Primary Care Provider Unavailabl e None, Unavailable Unavailable Allergies Active Allergy Reactions Criticality Noted Date Comments Cephalexin Swelling, lips/tongue High 09/24/2018 Latex 09/24/2018 Medications dextroamphetami ne-amphetamine (ADDERALL SR) 20 mg oral extended release capsule 24 HR 0 08/05/2018 Active ibuprofen 600 mg oral tablet Take 600 mg by mouth. 01/24/2018 Active vitamin with Ca,No.72-Iron-F A ( PLUS) 27 mg iron- 1 mg [...] drink = 0.6 oz pur e alcohol) Comments No Sex and Gender Information Value Date Recorded Sex Assigned at Not on file Legal Sex Female 10:30 AM CDT Gender Identity Not on file Sexual Orientation Not on file Last Filed Vital Signs Vital Sign Reading Time Taken Comments Blood Pressure 135/70 12/29/2018 3:36 PM CDT Pulse 59 12/29/2018 3:36 PM CDT Temperature 36.6 C (97.9 F) 12/29/2018 3:36 PM CDT Respiratory Rate 16 12/29/2018 3:36 PM CDT [...] of 2 - PCV) 1998 COVID-19 Vaccine ( - 2023-2 5 season) 2023 Influenza Vaccine (#1) 2023 Adult Tetanus Booster 11/20/2026 11/20/2016 , 06/01/2015, 09/15/2009, Additional history exists RSV Vaccines (1 - 1-dose 75+ series) 2067 Care Teams Chief Specialist Leed Relationship Specialty Start Date End Date None, PCP - General 09/24/18 None, PCP - Primary Care Clinic 09/24/18
--- OUTSIDE RECORDS SUMMARY | 2024-03-01 03:37 | XMS_ITS | Clinical Summary ---
Author Organization [facility] Address [address] [place] [address] Care Team Providers Care Transition Nurse Name Role Phone None Reported, Pcp Primary Care Provider Unavail able Source Comments Patient records contain information from all sites at [facility]. For routine questions regarding patient records, call [phone] during business hours, M-F 8:00 AM - 5:00 PM Central Time. Record requests for emergency care only can be directed to [phone] at any time.[facility] Allergies Active Allergy Reactions Criticality Noted Date Comments Cephalexin Anaphylaxis,Swelling High 07/16/2016 Latex Anaphylaxis,Angioede ma (Reselect Reaction),Hives (Reselect Reaction) High 02/16/2012 Medications * This document contains information received from the source organization and may not represent a complete record from that organization. LORazepam (ATIVAN) 2 mg tablet Take 2 mg by mouth 3 (three) times a day as needed for anxiety. Active pqmsxvz-Jr-unbl- FA 27 mg iron- 1 mg tablet [...] for pain. 100 tablet 4 3:24 PM BRAILLE CODER 05/21/19 24 Active fluticasone furoate (ARNUITY ELLIPTA) [...] the floor. She received her care at [facility]. Section Delivery 05/18/2023 Overview (05/18/2023): [...] kg. Jean Claude, Boy A One Charissa [[phone]] 1.58 kg Jean Claude, Girl B Two Charissa [[phone]] 1.36 kg . Gestational age: 30w1d. occurred: Contraceptive methods administered during the delivery: None Both mother was in stable condition at the conclusion of the procedure. Neonates were handed off to the Dheeraj team. When the patient met appropriate criteria, she was transferred to the floor. She received her care at [facility]. Maternal Care For Vertical S [...] normal. Assessment & Plan (03/17/2019 3:34 PM BRAILLE CODER): Plan MFM consult and Level II US. Assessment & Plan (03/04/2019 1:51 PM BRAILLE CODER): Will offer maternal serum screen once confirmed viable. Will offer first trimester anatomy US. Plan MFM consult, Level II US, and cardiac echo. Assessment & Plan (02/27/2019 5:09 PM BRAILLE CODER): Will offer maternal serum screen once confirmed viable. Plan MFM consult, Level II US, and cardiac echo. Attention Deficit Hyperactive Disorder 9 Assessment & Plan (03/17/2019 3:33 PM BRAILLE CODER): Referral to Psychiatry scheduled for 04/01/2019. Working with Ariela Hanks in care coordination to assist with coordinating this. Dr. Finney is prescribing her Adderall in the meantime. Has had improvement in symptoms back on medication, and is happy with this, though she believes her symptoms could be better controlled. Assessment & Plan (03/04/2019 1:50 PM BRAILLE CODER): Plan referral to Psychiatry. Working with Ariela Hanks in care coordination to assist with coordinating this. Dr. Finney is prescribing her Adderall in the meantime. Has had improvement in symptoms back on medication, and is happy with this, though she believes her symptoms could be better controlled. Assessment & Plan (02/27/2019 4:40 PM BRAILLE CODER): Plan referral to Psychiatry in [place]. Referral will need to be provided by [...] frequently. Assessment & Plan (03/17/2019 3:32 PM BRAILLE CODER): Reports increased symptoms. Has not picked up albuterol or pulmicort. Prescriptions resent. Assessment & Plan (02/27/2019 4:41 PM BRAILLE CODER): Will confirm at the next visit that [...] most likely will not do due to rastafarian considerations. having a vasectomy. Major Depressive Disorder, [...] the 67%ile with EFW of 2543 gm. [facility] recommended follow up US in 2-3 [...] was in place. 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 She is considering the NuvaRing for contraception [...] 04/17/2019 Assessment & Plan (03/26/2019 11:43 AM BRAILLE CODER): US today shows a gestational sac with [...] US. Assessment & Plan (03/04/2019 1:56 PM BRAILLE CODER): labs and OB education will be ordered [...] 07/04/2023 Assessment & Plan (03/26/2019 11:40 AM BRAILLE CODER): UA/UCx negative on 03/04/2019. Assessment & Plan (03/04/2019 1:54 PM BRAILLE CODER): No fevers, chills, or CVA tenderness. Stress 02/27/2019 01/29/2023 Overview (01/08/2020): Please see details above under depression anxiety Maternal Care For Vertical S car From Previous Delivery 02/27/2019 04/19/2019 Overview (02/27/2019): History of classical section. Operative report reviewed. Plan delivery at 36+0 weeks - 37+6 weeks gestation. Assessment & Plan (03/17/2019 3:35 PM BRAILLE CODER): Plan MFM consult and Level II US. Assessment & Plan (03/04/2019 1:52 PM BRAILLE CODER): Plan MFM consult and Level II US. Assessment & Plan (02/27/2019 5:08 PM BRAILLE CODER): Plan MFM consult and Level II US. Multiparity Grand With 02/27/2019 05/28/2023 Overview (03/29/2023): Increased risk of PPH. Assessment & Plan (03/17/2019 3:35 PM BRAILLE CODER): CBC and type and screen upon admission for section. She has asthma, so will have Methergine immediately available at the time of delivery. We will avoid the use of Hemabate. Assessment & Plan (03/04/2019 1:52 PM BRAILLE CODER): CBC and type and screen upon admission for section. She has asthma, so will have Methergine immediately available at the time of delivery. We will avoid the use of Hemabate Assessment & Plan (02/27/2019 5:10 PM BRAILLE CODER): CBC and type and screen upon admission [...] was able to move with her to [place] and a 5-bedroom 3-bathroom house and was [...] mood-standpoint. Assessment & Plan (03/26/2019 11:38 AM BRAILLE CODER): Psychiatry visit is being coordinated. EPDS score 6 and GISEL-7 score 3 when last checked. She now has custody of 7 of her children and that has helped. Assessment & Plan (03/04/2019 1:50 PM BRAILLE CODER): Psychiatry visit is being coordinated. EPDS score 6 and GISEL-7 score 3 today. Assessment & Plan (02/27/2019 5:11 PM BRAILLE CODER): Plan psychiatry referral. EPDS at next visit. [place] II No Diagnosis 023 Immunizations Name Administration [...] drink = 0.6 oz pur e alcohol) [facility] Applied Identityities Answer Date Recorded In the past 12 months has e [employer] Vitamins, gas, oil, or water [employer] threatened to shut off services in your [...] and Family Not on file 01/06/2020 Attends Alevism Services Not on file 01/05 Do you belong to any clubs o r organizations such as presybeterian groups, unions, fraternal or athletic groups, or [...] Answer Date Recorded PHQ-2 Score 0 08/02/2023 [facility] of Occupat ional Health - Occupational Stress [...] your living situation today? I have a [facility] place to live 05/17/2023 Education Answer [...] 67 07/20/2023 6:22 PM CDT Temperature 36.8 C (98.2 F) 07/20/2023 6:22 PM CDT Respiratory Rate 20 07/20/2023 7:15 PM CDT Oxygen Saturation 96% 07/20/2023 6:22 PM CDT Inhaled Oxygen Concentration - - Weight 106 kg (233 lb 11 oz) 07/20/2023 6:21 PM CDT Height 162.2 cm (5' 3.86) 06/07/2023 10:[address] Body Mass Index 40.29 06/07/2023 10:01 AM BRAILLE CODER Plan of Treatment Health Maintenance Due Date [...] 11/20/2026 11/20/2016, 06/01/2015, 09/15/2009, Additional history exists Cervical/Vaginal Cancer Screening 01/30/2028 023, 01/29/2023 Hepatitis B Vaccines Completed 08/22/1994, 1992, 1992 IPV Vaccines Completed 06/08/1997, 11/3 , 1992, Additional history exists HPV Vaccines Completed 05/02/2007, 041 , 04/19/2006 Varicella Vaccines Completed 06/01/2015, 1 04/24/2005, 08/22/1994 HIV Screening Completed 01/29/2023, 0611/2022, 12/29/2019 Procedures Procedure Name Priority Date/Time Associated [...] OD ORDERABLES Final Result Performing Organization Address City/[facility]/ZIP Co de Phone Number [facility] [address] [place] [address], [facility] in [address] [address] * HPV with Genotyping, PCR, ThinPrep (01/29/2023 2:28 PM CDT) Pathologist [facility] HPV with Genotyping, ThinPrep, PCR Negative Negative 01/30/2023 4:59 PM CDT MKTO Comment: Negative for high risk HPV by nucleic acid amplification. The following high risk HPV types were not detected: 16, 18, 31, 33, 35, 39, 45, 51, 52, 56, 58, 59, 66, and 68 This result does not rule out HPV in the patient, as the sensitivity of the test depends on the timing of the specimen collection and the quality of the specimen. Result should be correlated with patient's history, clinical presentation, and CHANNELER cytology report. 01/29/2023 2:28 PM CDT 01/30/2023 6:49 AM CDT Cecilio Healy Jr., M.D. LAB MICROBIOLOGY - GEN ERAL ORDERABLES Final Result Performing Organization Address City/[facility]/ZIP Co de Phone Number [facility] [address] [place] [address], [facility] MKTO [address] [place] [id number] from Last 3 Months or Most Recently Relevant to Health Maintenance Insurance [employer] Advance Directives For more information, please contact: [phone] * Full Code (Latest Code Status on File) Date Activated Date Inactivated Comments 05/01/2023 10:56 AM 05/04/2023 2:22 PM Question Answer Comments Full Code: Not Discussed Due to: Not medically appropriate * Full Code Date Activated Date Inactivated Comments 01/29/2020 10:37 AM 01/29/2020 6:03 PM Question Answer Comments Full Code: Not Discussed Due to: Not medically appropriate Care Teams Transition Nurse Relationship Specialty Start Date End Date None Reported, Pcp PCP - General Family Medicine 07/20/23
--- OUTSIDE RECORDS SUMMARY | 2024-03-01 03:37 | XMS_ITS | Clinical Summary ---
Author Organization [facility] Address [address] [place] [address] Care Team Providers Care Elocution Teacher Name Role Phone Md FAMILIA Cueva Primary Care Provider [phone] Source Comments You are receiving this document as you are listed as the primary care provider,follow-up provider, or the patient has been referred to you for consultation.This is in compliance with the Medicare andRegional Medical Centercaid EHR Incentive Program,which states Providers who transition their patient to another setting of careor provider of care or refers their patient to another provider of care shouldprovide summary care record for each transition of care or referral. [email or web address] Allergies Active Allergy Reactions Criticality Noted Date [...] (ATIVAN) 0.5 MG sublingual tablet 01/10/2021 Active Oqizahob-Whb-Vq-FA ( 1 + IRON OR) Take 1 [...] disorder) 04/21/2021 Overview (04/21/2021): Diagnosed by psychiatry, [facility], in 2007 History of delivery, currently 04/21/2021 [...] Comments Blood Pressure 126/67 04/19/2021 1:34 PM HOME WEATHERIZING WORKER Pulse 97 04/19/2021 1:34 PM HOME WEATHERIZING WORKER Temperature 36.6 C (97.9 F) 07/01/2011 4:09 PM CDT Respiratory Rate 16 07/01/2011 4:09 PM CDT Oxygen Saturation 98% 03/27/2011 2:24 PM HOME WEATHERIZING WORKER Inhaled Oxygen Concentration - - Weight 74.8 kg (165 lb) 04/19/2021 1:34 PM HOME WEATHERIZING WORKER Height 160 cm (5' 3) 12/06/2010 10:53 AM CDT Body Mass Index - - Plan of Treatment Health Maintenance Due Date Last Done Comments Cervical Cancer Screening Due 1992 Hep C Screening (Preventive Services) 1992 Asthma ACT 1996 Pneumococcal (1 - PCV) 1998 Adult Preventive Visit 2010 COVID-19 Vaccine (2023- season) 2023 Influenza (#1) 2023 DTaP/Tdap/Td (10 [...] Comments HIV ANTIBODY Routine 03/11/2010 3:33 PM HOME WEATHERIZING WORKER from Last 3 Months or Most Recently Relevant to Health Maintenance Results * HIV ANTIBODY (03/11/2010 3:33 PM HOME WEATHERIZING WORKER) HIV 1/HIV 2 Non-React No normal range HP CONVERSION 03/11/2010 3:33 PM HOME WEATHERIZING WORKER Daksha Moreira APRN, [facility]_1 HP CONVERSION from Last 3 Months or Most Recently Relevant to Health Maintenance Care Teams Elocution Teacher Relationship Specialty Start Date [place] [address] PCP - General 07/12/10
--- OUTSIDE RECORDS SUMMARY | 2024-03-01 03:37 | XMS_ITS | Referral Summary ---
Author Organization [facility] Address [address] [place] [address] Care Team Providers Care Birdcage Assembler Name Role Phone Lucretia, Md Primary Care [...] of Treatment Not on file Care Teams Birdcage Assembler Relationship Specialty Start Date End Date None, PCP - General 09/24/18 None, PCP - Primary Care Clinic 09/24/18
--- OUTSIDE RECORDS SUMMARY | 2024-03-01 03:38 | XMS_ITS | Clinical Summary ---
Author Organization [employer] [facility] Address [place], [place] [address] Care Team Providers Care Filling Station Attendant Name Role Phone Pcp, No Primary Care [...] manic episode 022 Overview (08/16/2021): Created by [facility] [facility] Annotation: Jul 07 2011 3:48PM - Suha Dyer: Stopped meds 2008 Replacement Utility updated for latest IMO load De Quervain's tenosynovitis 08/16/2021 Overview (08/16/2021): Created by Conversion [facility] 08/16/2021 Overview (08/16/2021): Created by Conversion [...] was able to move with her to [place] and a 5-bedroom 3-bathroom house and was [...] is on a Sunday. Plan delivery in [place]. Encounter for immunization 01/01/2020 Overview (08/16/2021): Rubella [...] was in place. 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 She is considering the NuvaRing for contraception [...] hyperactivity disorder) Overview (05/04/2017): Diagnosed by psychiatry, [facility] in 2007 Resolved Problems Problem Noted Date Diagnosed Date Resolved Date growth retardation, 1,500-1,749 grams 01/21/2018 03/18/2018 Overview (01/21/2018): 01.10.2018 US OB FOLLOW UP PER FETUS: INDICATION: IUGR, OMPHALOCELE IMPRESSION: Intrauterine at 35w 3d. presentation is Cephalic. EFW 1550 grams, percentile: < 3. Growth parameters and estimated weight are small for gestational age with suboptimal interval growth. The amniotic fluid volume appears normal. Placental location: Anterior There is no evidence of placenta previa Normal transabdominal cervical length. 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 NEXT VISIT ALERTS: PLANS & FUTURE APPOINTMENTS: - OB visits through: 01/17/18 with H&P with MD TESTING PLAN: Weekly at 28 weeks with doppler - Testing through: 01/17/18 GROWTH PLAN: -Next Growth u/s: DELIVERY PLAN: on 01/10 delivery 37-38 weeks due to IUGR - Scheduled delivery: 01/21/18 @ 1400 - Preferred delivery location: [facility] PRIMARY DIAGNOSIS: 27 y.o. Estimated Date of [...] 19w4d EFW 246 grams, percentile: 7 07/11/17 8w6d ECHO: 12/17/17: Small to moderate perimembranous ventricular septal defect. 10/29/17: Small to moderate perimembranous ventricular septal defect. REFERRING PHYSICIAN/PHONE/LAST UPDATE: Dr Teresa Childress [phone] Primary MD approves scheduling of recommended ultrasounds/testing. SPECIALISTS/CONSULTS: Neonatology 01/10/18 Pediatric Surgery: 11/26 Dr. [facility] Tour ALVAREZ signed for [facility]: Signed 10/29/17 CARE COORDINATION: Johana Vieira,RN/Marva Lai, RN/Trisha Tobar RN/Lea Khan RN [phone] CHECKING DEPARTMENT SUPERVISOR: DIAMOND Guillory DAIRY FARMWORKER: Pager: [phone] GENETICS: Beto Enciso done 10/08/17-low risk PROCEDURES: 12/[address] [facility] 09/11/17 Maternal abd U/S 1. No shadowing [...] assistance? YES CHECKLIST FOR SCHEDULING PROCEDURES: Call [phone] for [place] and [phone] for [place] (UTD cerclages Day Surgery [phone]) Procedure: C/ Hospital: [facility] Unit: L&D Date & Time of procedure: 01/21/18 at 1400pm Laura Score if induction: N/A Pertinent information: Omphalocele containing liver, bowel and stomach Gestational age on procedure date? 37w0d MD doing procedure: Dr. Douglas Date scheduled: 01/10/18 when pt was 35w3d; Rescheduled 01/17/18 Scheduling MD & RN: Dr Boggs/NORBERT Covington Notifications: Hospitalist Delivery-OBH contact lens lathe operator notified through [employer] inbox? Yes MPP MD contact lens lathe operator notified via [employer] inbox? Yes Primary MD notified via [employer] inbox? No Primary MD clinic called if not [place] Me[place]tha? No On [facility] calendar? Yes Care Coordination notified? Yes H&P/PPTL: PPTL permit signed? Not Applicable H&P and Plan in chart? No [facility] appointment made for H&P with NEWS REEL CAMERAMAN within 7 days of surgical procedure? Yes Date: 01/17/18 with MD Patient notification: Patient notified of procedure date? Yes Written admission instructions given to patient via AVS? Given 01/10/18 PLAN OF CARE: 01/10/18 per SS -Continue with routine care through [facility]. -Continue weekly testing -Plan for delivery by at 37-38 weeks based on growth interval anomaly 09/26/2017 11/26/2017 omphalocele in , antepartum [...] PTL Megha A1 A5 Name Clin Term 2007 AB ECTOPI C 9 AB ELECTI VE AB 2009 Term 38w 3d 3.25 kg (7 lb 2.8 oz) M Vag-Sp ont None Y Livin g 9 9 Arturo arreguin Complications:None Delivery Location:[facility] Comments:Teen Pregnanc y 2010 Term 37w 0d [...] 8 PELTI ER,BG IVORY jaramillo Complications:None Delivery Location:[facility] 2017 Term 37w 0d 0h 02m 2.4 kg (5 lb 4.7 oz) M CS-Cla ssical Spinal Livin g 8 8 PELTI ER,BB IVORY Menezes r/Ahr ens Complications:None,Known fet al anomaly, antepartum Delivery Location:[facility] ([facility] [id number] [place]) Comments:baby with omp alocele, IUGR, VSD 2018 SAB 9w0 d 2019 Term 37w 3d 3.29 kg (7 lb 4 oz) M CS-LTr anv Spinal Livin g Delivery Location:[facility] 2021 Para 0h 10m 0h 10m 2.47 kg (5 lb 7.1 oz) F None Rasta g GARCIA ER,BG IVORY Beltran letTana ield, DO Complications:Precipitous la bor (< 3 hours) Delivery Location:Hospital ( [facility]) Comments Last was a C-Secti on and did a T-Cut on uterus causing baby to have organs born on the outside of body. Rea Sibleykimmie CERTIFIED CYTOTECHNOLOGIST 05/22/2018 1:01 PM No other issues/no episiotomy. Rea Lisa CERTIFIED CYTOTECHNOLOGIST 05/22/2018 1:02 PM Last Filed Vital Signs Vital Sign Reading Time Taken Comments Blood Pressure 131/63 05/17/2023 7:00 PM SUGAR HOUSE SUPERVISOR Pulse 90 05/17/2023 7:00 PM SUGAR HOUSE SUPERVISOR Temperature 36.6 C (97.9 F) 05/17/2023 7:00 PM SUGAR HOUSE SUPERVISOR Respiratory Rate 18 04/30/2023 4:38 PM SUGAR HOUSE SUPERVISOR Oxygen Saturation 98% 05/17/2023 7:00 PM SUGAR HOUSE SUPERVISOR Inhaled Oxygen Concentration - - Weight 112.3 kg (247 lb 9.6 oz) 04/30/2023 4:38 PM SUGAR HOUSE SUPERVISOR Height 160 cm (5' 3) 04/30/2023 4:38 PM SUGAR HOUSE SUPERVISOR Body Mass Index 43.86 04/30/2023 4:38 PM SUGAR HOUSE SUPERVISOR Plan of Treatment Health Maintenance Due Date [...] ANTI HIV 1/2 Today 04/10/2021 10:19 PM SUGAR HOUSE SUPERVISOR ANTI HCV Routine 12/18/2016 3:58 PM CDT Grand multiparity with current , third trimester Supervision of other normal , antepartum SENIOR CLINICAL RESEARCH SCIENTIST THIN PREP PAP SCREEN IMAGED Routine 06/22/2016 11:52 AM CDT Screening for malignant neoplasm of cervix from Last 3 Months or Most Recently Relevant to Health Maintenance Results * ANTI HIV 1/2 (04/10/2021 10:19 PM SUGAR HOUSE SUPERVISOR) HIV-1/HIV-2 ANTIBODY Non-Reacti ve Non-Reacti ve 04/11/2021 3:06 PM SUGAR HOUSE SUPERVISOR [facility] Comment:HIV-1 p24 and HIV-1/ HIV-2 Ab not detected. Blood BLOOD SPECIMEN / Unknown Venipuncture / Unknown 04/10/2021 10:19 PM SUGAR HOUSE SUPERVISOR 04/10/2021 10:28 PM SUGAR HOUSE SUPERVISOR Marianne Fairbanks DO SEND OUTS [facility] [address] [place] [address], * ANTI HCV (12/18/2016 3:58 PM CDT) HEPATITIS C ANTIBODY Non-Reacti ve Non-Reacti ve 12/18/2016 11:31 PM CDT [facility] Blood BLOOD SPECIMEN / Unknown Venipuncture / Unknown 12/18/2016 3:58 PM CDT 12/18/2016 3:58 PM CDT N[facility]ative [facility] - 12/18/2016 11:31 PM CDT Antibodies to HCV not detected; does not exclude the possibility of exposure to HCV. Teresa Chaudhary MD SEND OUTS [facility] [address] [place] [address], [place] * SENIOR CLINICAL RESEARCH SCIENTIST THIN PREP PAP SCREEN IMAGED (06/22/2016 11:52 AM CDT) Case Report Gynecologic Cytology Report Case: [id number] Authorizing Provider: Ana Holliday DO Collected: 06/22/2016 1152 Ordering Location: [facility] [place] [employer] Received: 06/22/2016 1152 [facility] First Screen: Jen Velazquez Specimen: SENIOR CLINICAL RESEARCH SCIENTIST ThinPrep Vial Screening, Cervical 06/29/2016 2:14 PM CDT [facility] INTERPRETATION/ RESULT NEGATIVE FOR INTRAEPITHELIAL LESION OR MALIGNANCY (NIL) (none) 06/29/2016 2:14 PM CDT [facility] IMEN ADEQUACY Satisfactory for evaluation Endocervical component present Obscuring Inflammation 06/29/2016 2:14 PM CDT [facility] HPV REQUEST HPV if ASCUS 06/29/2016 2:14 PM CDT [facility] Date of LMP 06/29/2016 2:14 PM CDT [facility] Last Pap Date 2016/ outside of [facility] 06/29/2016 2:14 PM CDT [facility] Last Pap Result NIL 7 2:14 PM CDT [facility] Abnormal Pap or [place] Bx in last 5 years No 06/29/2016 2:14 PM CDT [facility] Menstrual Status 06/29/2016 2:14 PM CDT [facility] [place] Bx Done Today No 06/29/2016 2:14 PM CDT [facility] Additional Information None given 06/29/2016 2:14 PM CDT [facility] Automated Review Successful 06/29/2016 2:14 PM CDT [facility] Comment:Specimen processed s uccessfully by automated event promotions coordinator device, ThinPrep Imaging System, [employer] Note The pap test is a screening technique, not a diagnostic procedure. It is used primarily to screen for squamous cancers and precursor lesions. Published studies have shown that it is subject to both false negative and false positive results. The pap test should not be used as the sole means to diagnose or exclude pre-malignant and malignant lesions. Interpreted at [facility] ([facility], [facility], [facility], [facility], [facility], [facility], [facility]) 06/29/2016 2:14 PM CDT [facility] Other (Cervical) 06/22/2016 11:52 AM CDT 06/22/2016 11:52 AM CDT Ana Holliday DO PATHOLOGY/CYTOLOGY [facility] [address] [place] [address], from Last 3 Months or Most Recently [...] 10:52 PM 01/12/2017 1:06 AM Care Teams Filling Station Attendant Relationship Specialty Start Date End Date Pcp, No . PCP - General 04/30/23
--- OUTSIDE RECORDS SUMMARY | 2024-03-01 03:38 | XMS_ITS | Data Portability ---
Author Organization [place] - [employer], [id number] Address [address] [place] [address] [address] [place] [address] Assessment No assessment recorded. Plan of Treatment Reminders Order Date Submit Date Provider Last Modified By Organization Details Last Modified Time Details Appointments None record ed. Lab None record ed. Referral None record ed. Procedures None record ed. Surgeries None record ed. Imaging US, obstet neri, follow -up 022 03/27/20 22 [email or web address]_vngmyhoa [facility], [address] [facility], [address], [place], [address], 2 15:50:58 Medication Orders None record ed. Patient TargetsNo targets recorded. Patient Instructions Encounter Date Encounter Id Patient Instructions Last Modified By Organization Details Last Modified Time 04/14/2022 [id number] - Doing well. Al l questions answered. [email or web address] Not available 04/10/2022 22:52:25 05/18/2022 [id number] - Maintain a healthy diet and exercise, keep yourself hydrated. - No intercourse and no lifting more than 35 pounds. - You can rub coconut oil or vitamin e oil on your incision to help with the healing. - F/U for post visit. [email or web address] Not available 05/18/2022 15:35:19 - Reviewed post-op incision care. - Discussed post-op exercise and restrictions. - She may resume {{no light modifi ed* normal}} activity. - Questions answered. [email or web address] Not available 05/18/2022 15:35:02 Reason for Referral None Reported. Results Created Date Observation Date Name Description Value Unit Range Abnormal Flag Note LastModifiedBy Organization Detail LastModifiedTime 02/28/20 22 02/27/2022 TREPO NEMA ABS W REFLE X TO RPR AND CONF OR TITER treponema antibody total Nonrea ctive nonrea ctive Not Available [address], [place], [address], 02/28/2022 11:49:56 02/28/20 22 02/27/2022 hemog lobin (Hb), blood hemoglobin, blood 13.0 g/dL 12.0-1 5.0 normal Not Available [id number] [facility] [address] [facility] [address], [place], [address], 02/27/2022 15:36:35 02/28/20 22 02/27/2022 gluco se ollie ance test, 1-atilio r 1 hour post-glucola serum glucose 98 mg/dL <140 normal Not Available [id number] [address] [facility] [address], [place], [address], 02/23/2022 11:51:38 02/28/20 22 02/27/2022 US, obste tric, follo w-up No observ ation record ed. [email or web address] [address], [place], [address], 02/27/2022 17:29:40 03/27/20 22 03/27/2022 US, obste tric, follo w-up No observ ation record ed. [email or web address] [address], [place], [address], 03/27/2022 16:22:14 Result Notes None recorded. Problems Name Problem SNOMED Code Status Onset Date Resolution Date Notes Provider Name and Address Organization Details Recorded Time 82295613 Active 2021 Grisel Moreno (TERMED) null, [place] - [employer] 12:32:34 Oppositio nal defiant disorder 18144345 Active Not on meds Haley L. [place] null, [facility] 3 10:15:14 Posttraum atic stress disorder 33605548 Active Not on meds Haley L. Meaghan null, [facility] 3 10:15:14 Asthma 630258118 Active Inhaler Haley L. [place] null, [facility] 3 10:15:14 Vaginal delivery following previous section 905515678 Active #10=[facility] Haley L. Meaghan null, [facility] 3 10:15:14 Attention deficit hyperacti vity disorder 182227299 Active Not on meds Haley L. [place] null, [facility] 3 10:15:14 Past history of section 010995070 Active #8=Class ical, #9=Repea t Haley L. Meaghan null, [facility] 3 10:15:14 Oppositio nal defiant disorder 73242606 Completed Not on meds Haley L. Meaghan null, [facility] 3 10:15:14 Posttraum atic stress disorder 33954760 Completed Not on meds Haley L. [place] null, [facility] 3 10:15:14 Asthma 731427417 Completed Inhaler Haley L. [place] null, [facility] 3 10:15:14 Vaginal delivery following previous section 364430961 Completed #10=[facility] Haley L. [place] null, [facility] 3 10:15:14 Attention deficit hyperacti vity disorder 730598358 Completed Not on meds Haley L. Meaghan null, [facility] 3 10:15:14 Past history of section 798282573 Completed #8=Class ical, #9=Repea t Haley L. [place] null, [facility] 3 10:15:14 Problem Notes None recorded. Procedures Surgical History Date Name Laterality Status Provider Name and Address Organization Details Recorded Time 1 Date of Last Pap Smear completed Grisel Moreno (TERMED) [facility] 10/20/2021 10:23:28 0 section completed Grisel Moreno (TERMED) [facility] 10/20/2021 10:25:43 8 section completed Grisel Moreno (TERMED) [facility] 10/20/2021 10:25:30 Imaging Results Imaging Date Name Status LastModified by Organiz ation Details LastModified Time 02/27/2022 US, obstetric, follow-up completed [email or web address] [address], [place], [address], 02/27/2022 17:29:40 03/27/2022 US, obstetric, follow-up completed [email or web address] [address], [place], [address], 03/27/2022 16:22:14 Procedure Notes None recorded. Medical Equipment None Reported. Allergies Allergen ID Allergen Name Allergen Category Reaction Reaction Severity Criticality Documentation Date Start Date Code Code System Note Provider Name and Address Organization Details Recorded Time 264099 cephalexi n medicatio n Not available Not available Not available 10/20/2021 2231 RxNorm Grisel Moreno (TERMED) null, [place] - [place] [employer] 2 10:21:58 049132 latex environme nt,medica tion Not available Not available Not available 10/20/2021 57040 91 RxNorm Grisel Moreno (TERMED) [place], [place] [employer] 2 10:22:15 Medications Name Sig Start Date Stop Date Status Note LastModified by Organization Details LastModified Time amoxicillin 500 mg capsule TAKE 1 CAPSULE BY MOUTH THREE TIMES DAILY EVERY 8 HOURS FOR 7 DAYS UNTIL GONE active Not Available Not Available No t Available clindamycin HCl 300 mg capsule TAKE 1 CAPSULE BY MOUTH THREE TIMES DAILY FOR 7 DAYS active Not Available Not Available No t Available azithromyci n 250 mg tablet TAKE 2 TABLETS BY MOUTH ON DAY 1, AND THEN TAKE 1 TABLET BY MOUTH ONCE A DAY ON DAY 2 THROUGH DAY 5 active Not Available Not Available No t Available fluconazole 150 mg tablet TAKE 1 TABLET BY MOUTH EVERY 3 DAYS active Not Available Not Available No t Available cephalexin 250 mg capsule TAKE TWO CAPSULES BY MOUTH EVERY 12 HOURS FOR 7 DAYS 10/20 completed Not Available Not Available Not Available ondansetron HCl 4 mg tablet TAKE 1 TABLET BY MOUTH EVERY 8 HOURS NEEDED FOR NAUSEA FOR VOMITING active Not Available Not Available No t Available sertraline 100 mg tablet TAKE 1/2 TABLET BY MOUTH X 1 WEEK THEN 1 TABLET BY MOUTH EVERY DAY 10/20 completed Not Available Not Available Not Available acetaminoph en 500 mg tablet TAKE 2 TABLETS EVERY 6 HOURS BY ORAL ROUTE. active Not Available Not Available No t Available Adderall XR 20 mg capsule,ext ended release TAKE ONE CAPSULE BY MOUTH EVERY MORNING ALONG WITH 10MG CAPSULE. DO NOT FILL UNTIL 08/26/2110/20 completed Not Available Not Available Not Available Adderall XR 30 mg capsule,ext ended release TAKE ONE CAPSULE BY MOUTH EVERY MORNING ALONG WITH 10MG CAPSULE. DO NOT FILL UNTIL 07/27/2110/20 completed Not Available Not Available Not Available amoxicillin 875 mg tablet TAKE 1 TABLET BY MOUTH TWICE DAILY FOR 10 DAYS active Not Available Not Available No t Available lorazepam 0.5 mg tablet TAKE 1 TABLET (0.5 MG) BY MOUTH DAILY NEEDED FOR EXTREME ANXIETY. 10/20 completed Not Available Not Available Not Available dextroamphe tamine-amph etamine 20 mg tablet TAKE 1/2 TABLET BY MOUTH TWO TIMES A DAY (EVERY MORNING AND NOON) AND 1 TABLET AT 4PM. DO NOT FILL UNTIL 08/26/2110/20 completed Not Available Not Available Not Available docusate sodium 100 mg capsule active Not Available Not Available N ot Available Adderall XR 10 mg capsule,ext ended release TAKE ONE CAPSULE BY MOUTH EVERY MORNING ALONG WITH 30MG CAPSULE. DO NOT FILL UNTIL 08/26/2110/20 completed Not Available Not Available Not Available folic acid 1 mg tablet TAKE 1 TABLET BY MOUTH ONCE DAILY active Not Available Not Available No t Available epinephrine 0.3 mg/0.3 mL injection, auto-inject or INJECT 0.3 MG INTRAMUSC ULAR NEEDED FOR ANAPHYLAX IS - INJECT INTO THIGH active Not Available Not Available No t Available ibuprofen 600 mg tablet TAKE 1 TABLET 3 TIMES A DAY BY ORAL ROUTE. active Not Available Not Available No t Available norethindro ne (contracept quynh) 0.35 mg tablet TAKE 1 TABLET EVERY DAY BY ORAL ROUTE. active Not Available Not Available No t Available ondansetron 4 mg disintegrat ing tablet DISSOLVE 1 TABLET IN MOUTH EVERY 8 HOURS NEEDED FOR NAUSEA FOR VOMITING active Not Available Not Available No t Available oxycodone 5 mg tablet TAKE 1 TABLET (5 MG) BY MOUTH EVERY 6 HOURS NEEDED FOR PAIN active Not Available Not Available No t Available dextroamphe tamine-amph etamine ER 25 mg 24hr capsule,ext end release active Not Available Not Available Not Available nitrofurant oin monohydrate /macrocryst als 100 mg capsule Take 1 capsule every 12 hours by oral route for 5 days. active Not Available Not Available No t Available Flovent HFA 44 mcg/actuati on aerosol inhaler INHALE 2 PUFFS BY MOUTH TWICE DAILY - RINSE MOUTH WITH WATER AFTER USE TO REDUCE AFTERTAST E AND INCIDENCE OF CANDIDIAS IS - DO NOW SWALLOW active Not Available Not Available No t Available Pulmicort Flexhaler 90 mcg/actuati on breath activated INHALE 1 PUFF BY MOUTH TWICE DAILY - RINSE MOUTH WITH WATER AFTER USE TO REDUCE AFTERTAST E AND INCIDENCE OF CANDIDIAS IS. DO NOT SWALLOW. active Not Available Not Available No t Available Stimulant Laxative Plus 8.6 mg-50 mg tablet TAKE 1 TABLET BY MOUTH AT BEDTIME active Not Available Not Available No t Available Narcan 4 mg/actuatio n nasal spray active Not Available Not Available Not Available Lidocaine Pain Relief 4 % topical patch active Not Available Not Available Not Available Vitals Date Recorded Body height Body mass index (BMI) Body weight Systolic blood pressure Diastolic blood pressure Provider Name and Address Organization Details Last Updated DateTime 03/13/2022 160.02 cm 39.9 kg/m2 795627.2 8325 g 136 mm[Hg] 72 mm[Hg] Jolie Calvo [employer] 15:27:22 Date Recorded Body height Body mass index (BMI) Body weight Systolic blood pressure Diastolic blood pressure Provider Name and Address Organization Details Last Updated DateTime 03/27/2022 160.02 cm 41.1 kg/m2 324385.4 2984 g 120 mm[Hg] 66 mm[Hg] Jolie MANSFIELD [employer] 2 15:50:36 Date Recorded Body height Body mass index (BMI) Body weight Systolic blood pressure Diastolic blood pressure Provider Name and Address Organization Details Last Updated DateTime 04/14/2022 160.02 cm 42 kg/m2 682074.3 9169 g 146 mm[Hg] 92 mm[Hg] Jolie Khoury [facility] [employer] 3 16:52:18 Date Recorded Body height Systolic blood pressure Diastolic blood pressure Provider Name and Address Organization Details Last Updated DateTime 05/18/2022 160.02 cm 136 mm[Hg] 82 mm[Hg] Jolie Khoury [facility] [employer] 05/18/2022 14:31:12 Social History None recorded. Functional Status None recorded. Mental Status None recorded. Family History Nothing Reported. Medical History No medical history recorded. Gynecological History Statement/Question Response Sexually Active Y History of Abnormal PAP N Total lifetime partners Less than 5 Date of LMP 08/14/2021 Current Control Method Progestin O nly Pills Sexual Orientation Heterosexual Date of Last Pap Smear 01/07/2021 Obstetrics History GPAL:G 11 P 11 0 0 11 Type Value Full Term 11 Living 11 Total 11 Immunizations Vaccine Type Date Status Provider Name and Address Organization Details Recorded Time Tdap 09/15/2009 completed Partha Holloway (TERMED) yanira, [facility] [employer] 01/04/2022 13:28:58 Tdap 11/20/2016 completed Partha Holloway (TERMED) null, [facility] [employer] 01/04/2022 13:28:58 MMR 12/20/2011 completed Partha Holloway (TERMED) null, [facility] [employer] 01/04/2022 13:28:58 Past Encounters Encounter ID Performer Location Encounter Start Date Encounter Closed Date Diagnosis/Indication Diagnosis SNOMED-CT Code Diagnosis ICD10 Code [id number] HEMAL CAMPBELL PA-C [id number] KARLENE Neri_AIXA E [address] [facility] [address] [place] [address] 10/20/2021 09:33:43 10/25/2021 10:06:04 Gestation period, 9 weeks 038725 Z3A.09 Routine an tenatal care 987621403 Z34.91 Past pregn lori history of section 253975374 Z98.890 Posttrauma tic stress disorder 56475526 F43.10 Attention deficit hyperactivity disorder 708386673 F90.9 Opposition al defiant disorder 77237720 F91.3 Asthma 727450466 J45.90 9 Vaginal de livery following previous section 383722611 O34.474 [id number] Nicolas Dobbins MD KW242_NCP KARLENE Neri_SISIYDAL E [address] [facility],[address] [place] [address] 10/20/2021 09:30:44 10/20/2021 10:18:07 Routine care 639460713 Z34.91 [id number] Lars Enamorado MD ZO248_JNZ KARLENE PINEDA Y [facility] [employer] [address] 11/28/2021 15:27:47 11/28/2021 18:35:33 Gestation period, 12 weeks 96158436 Z3A.12 Normal pre gnancy in multigravida 5713576394 98759 Z34.81 Past pregn lori history of section 314233700 Z98.890 Posttrauma tic stress disorder 51873463 F43.10 Attention deficit hyperactivity disorder 428555590 F90.9 Opposition al defiant disorder 98535937 F91.3 Asthma 534902644 J45.90 9 Vaginal de livery following previous section 684601858 O34.219 screening 2437 77811 Z36.0 [id number] Lars Enamorado MD FT821_SLF KARLENE PINEDA Y [facility] [employer] [address] 01/06/2022 13:31:13 01/06/2022 15:01:30 Routine care 319605686 Z34.82 Gestation period, 20 weeks 54050764 Z3A.20 Past pregn lori history of section 225939778 Z98.373 [id number] MD JADE Gerard003_MET KARLENE PINEDA Y [facility] [employer] [address] 01/06/2022 13:30:51 01/06/2022 14:35:19 screening for malformation 586949519 Z3A.20 [id number] Lars Enamorado MD HO573_SGC KARLENE SPRERNAJOÃO Y [address] [place] [address] 02/03/2022 15:47:04 02/03/2022 18:01:21 Routine care 615345642 Z34.82 Past pregn lori history of section 753997105 Z98.890 Gestation period, 24 weeks 263797863 Z3A.24 [id number] Lars Enamorado MD XD763_CNA KARLENE SAYAN Y [address] [place] [address] 02/27/2022 14:34:23 03/06/2022 15:14:02 Routine care 313983514 Z34.82 Past pregn lori history of section 078132992 Z98.890 Gestation period, 28 weeks 81645039 Z3A.28 [id number] Lars Enamorado MD TJ021_KCC KARLENE SPRERNAJOÃO Y [address] [place] [address] 02/27/2022 14:24:41 02/27/2022 14:26:38 Large for gestation age fetus 205223704 Z3A.28 [id number] Lars Enamorado MD LB553_IMV KARLENE SAYAN Y [address] [place] [address] 03/13/2022 15:10:54 03/14/2022 09:10:42 Routine care 197236815 Z34.82 Past pregn lori history of section 121501209 Z98.890 Gestation period, 30 weeks 62701004 Z3A.30 [id number] Lars Enamorado MD XD300_TZX KARLENE SMasoudJUSTINO Y [address] [place] [address] 03/27/2022 14:53:09 03/27/2022 15:27:14 Low lying placenta 201028325 Z3A.31 [id number] Lars Enamorado MD MP167_RSZ KARLENE SMasoudJUSTINO Y [address] [place] [address] 03/27/2022 14:57:56 03/27/2022 16:56:05 Past history of section 930427256 Z98.890 Gestation period, 32 weeks 7896186 Z3A.32 Low lying placenta 88544 2006 Z3A.31 [id number] Lars Enamorado MD UF521_NXD KARLENE PINEDA Y [address] [place] [address] 04/14/2022 15:28:29 04/17/2022 12:49:26 Routine care 151940447 Z34.82 Gestation period, 34 weeks 75350665 Z3A.34 Past pregn lori history of section 553516168 Z98.756 [id number] Lars Enamorado MD FO763_EFD KARLENE EDWIN Y [facility] [address] [place] [address] 05/18/2022 13:49:20 05/23/2022 09:48:14 Postoperative visit 782071085 Z09 Health Concerns Section Related Observation LastModified by Organization Detai ls LastModified Time None Recorded Concern Status LastModified by Organization Details LastModified Time None Recorded Advance Directives Directive None Recorded Payers Encounter Date Sequence Insurance Name Policy Number Policy Palacios Covered Member ID Palacios Member ID Guarantor Name 03/13/2022 1 [place] [facility] Char[facility] C Jean Claude [id number] Charissa C Jean Claude 03/27/2022 1 [place] Charissa C Jean Claude [id number] Charissa C Jean Claude 03/27/2022 1 [place] [employer] Charissa C Jean Claude [id number] Charissa C Jean Claude 04/14/2022 1 [place] [employer] Charissa C Jean Claude [id number] Charissa C Jean Claude 05/18/2022 1 [place] [employer] Charissa Silverio [id number] Charissa Silverio Notes Date Note Type Note Provider Name and Address Organization Details Recorded Time 05/18/2022 text/html Surgery Date: {{ enter in date 04/27/22#}}.Bobbi blackburn presents for her {{post-operative firs t post-operative* secon d post-operative third post-operative hyster oscopy follow-up}} evaluation.Surgical procedure: {{ Section* Suction D&C Diagnostic Laparoscopy Robotic TLH, Bilateral Salpingectomy and Cystoscopy Hysterosco py, D&C and Endometrial ablation Tubal Ligation TVT-Placemen t TVT-O Vaginal Hysterectomy LAVH LAV H/BSO RoboticTLH Robo tic TLH, BSO with Cystoscopy Anterior & Posterior Repair a right oophorectomy a left oophorectomy Bilatera l Oophorectomy Dilation & Curettage Cystocele repair Rectocele repair mid-urethral sling Robotic assisted laparoscopic excision of endometriosis Robotic supracervical hysterectomy, Bilateral Salpingectomy, Sacralcolpopexy and Cystoscopy lysis of adhesions tubal dye study appendectomy cy stoscopy bilateral salpingo-ophorectomy sacrocervicopexy post erior repair perineorraphy Other:}}.Indication: {{Missed AB Myomatous Uterus Pelvic Pain Dysmenorrhea Men orrhagia Infertility Urinary stress incontinence Dysmenor zain Post-menopausal bleeding Pelvic floor prolapse Cystocele Re ctocele Previous * Breech Malp resentation Failure to progress in labor Failure to descend distress Patient refusal of labor Failed induction of labor HELLP Syndrome Severe preeclampsia Other:}} . The procedure was done by: {{DO Gosia Olsen MD Thomas E. Grande, MD Kevin A. Hallman, MD Ronald F. Less, MD Annette N. Mies, MD Rachel S. Parritz, MD Dr Albertin#}}.She {{has no current complaints* has no unusual complaints reports:}} [place] [address] [facility],[address], [place], [address], [facility] - [employer] 05/23/2022 08:08:00 OBGyn Episode Ob Episode Information Episode Created Date Number of Fetuses Patient Bloodtype Patient rh Status Prepregnancy Weight lbs Domestic Partner Domestic Partner Phone Father Name Development Architect Status 10/21/19 22 1 A Positive Arturo Morris CLOSED Fetus Data First Name Last Name Admitted to NICU Weight (g) Sex Living Outcome Pediatric Complications Fetus ID Race Codes Race Delivery Type M true Full Term [id number] Problems Problem Notes Parrijay/Gilmar's/FOB: KyleEDD: 05/21/2022 by LMP -- (c/w 10wk US)- 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) & Repeat (Preg #9=Repeat)- Hx of Accidental (Preg #10=at home)- PTSD/ADHD/ODD: Not on meds- Asthma: Inhaler- Hx of Low [place] (Preg #5)- UTI @ 9wks: Macrobid Problem Name Start Date End Date Resolution Snomed Code Not e Oppositional defiant disorder 25080676 Not on meds Posttraumatic stress disorder 13350088 Not on meds Asthma 786096317 Inhaler Vaginal delivery following previous section 241120118 #10=Acciden reyan @ Home Attention deficit hyperactivity disorder 810462554 Not o n meds Past history of section 904487636 #8=Class ical, #9=Repeat Oliverio Calculation Initial Oliverio Date Initial Exam Date Initial Exam Provider Initial Ultrasound Date Last Menstrual Period Date Ultra Sound Weeks Gestation 05/21/2022 10/20/2021 10/20/2021 08/14/2021 10 Eighteen To Twenty Week Oliverio Update Ultra Sound Date Fundal Height At Umbil Quickening Date Ultra Sound Latest Weeks Gestation Final Oliverio Confirmed By Final Oliverio Confirmed Date Final Oliverio Date Ultra Sound Latest Days Gestation 0 [email or web address] 10/25/2021 05/21/19 23 0 Pre- Flowsheet Flowsheet Date 10/20/2021 Laura Score Blood Edema Fundus Height Fundus Units Glucose Ketones Leukocytes Nitrite Labor Signs Protein Cervic Dilation Cervic Effacement Cervic Station Type Weight in lbs BP Diastolic BP Location Tested BP Systolic BP Type Fetus Heart Rate Present Fetus Movement Comments Flowsheet Date 10/20/2021 Laura Score Blood Edema Fundus Height Fundus Units Glucose Ketones Leukocytes Nitrite Labor Signs Protein Cervic Dilation Cervic Effacement Cervic Station none none Type Weight in lbs BP Diastolic BP Location Tested BP Systolic BP Type 69 R arm 116 sitting Fetus Heart Rate Present A 162 Present Fetus Movement A No Comments Pt reports breast tenderness , urinary frequency. Denies VB, cramping/abd pain, dysuria. Reviewed 1st OB packet. Sent OB labs. She is interested in Panorama & AFP. Gave SAB precautions. RTC in 3wks. All questions answered. Flowsheet Date 11/28/2021 Luara Score Blood Edema Fundus Height Fundus Units Glucose Ketones Leukocytes Nitrite Labor Signs Protein Cervic Dilation Cervic Effacement Cervic Station Type Weight in lbs BP Diastolic BP Location Tested BP Systolic BP Type 84 132 sitting Fetus Heart Rate Present A Present Fetus Movement A Yes Comments See HPI. Flowsheet Date 01/06/2022 Laura Score Blood Edema Fundus Height Fundus Units Glucose Ketones Leukocytes Nitrite Labor Signs Protein Cervic Dilation Cervic Effacement Cervic Station Type Weight in lbs BP Diastolic BP Location Tested BP Systolic BP Type Fetus Heart Rate Present Fetus Movement Comments Flowsheet Date 01/06/2022 Laura Score Blood Edema Fundus Height Fundus Units Glucose Ketones Leukocytes Nitrite Labor Signs Protein Cervic Dilation Cervic Effacement Cervic Station Type Weight in lbs BP Diastolic BP Location Tested BP Systolic BP Type 60 110 Fetus Heart Rate Present Fetus Movement A Yes Comments Doing well. FAS today, discu ssed low lying placenta, repeat US @ 28wks, pelvic rest until then. Undecided on baby names. 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 Work note given. Insomnia, I recommend Magnesium gummies, Unisom or Tylenol PM. Reports cramping inner thigh, remedies reviewed. Routine care. FU 1mo. Flowsheet Date 02/03/2022 Laura Score Blood Edema Fundus Height Fundus Units Glucose Ketones Leukocytes Nitrite Labor Signs Protein Cervic Dilation Cervic Effacement Cervic Station Type Weight in lbs BP Diastolic BP Location Tested BP Systolic BP Type 84 136 sitting Fetus Heart Rate Present A Present Fetus Movement A Yes Comments Complains of not sleeping. R eassured pt. Questions answered. Proof of letter given to pt. F/U in 4 weeks for GTT and next OB visit. URI: Z-yehuda. S>D, FH 28. US for growth NOV Flowsheet Date 02/27/2022 Laura Score Blood Edema Fundus Height Fundus Units Glucose Ketones Leukocytes Nitrite Labor Signs Protein Cervic Dilation Cervic Effacement Cervic Station Type Weight in lbs BP Diastolic BP Location Tested BP Systolic BP Type Fetus Heart Rate Present Fetus Movement Comments Flowsheet Date 02/27/2022 Laura Score Blood Edema Fundus Height Fundus Units Glucose Ketones Leukocytes Nitrite Labor Signs Protein Cervic Dilation Cervic Effacement Cervic Station Type Weight in lbs BP Diastolic BP Location Tested BP Systolic BP Type sitting Fetus Heart Rate Present A Present Fetus Movement A Yes Comments Reviewed U/S results. Questi ons answered. Declines Tdap and Flu vaccines. RPR, HGB, and GTT today. F/U in 2-3 weeks for next OB visit. US reviewed. Plan repeat CS 05/03 Flowsheet Date 03/13/2022 Laura Score Blood Edema Fundus Height Fundus Units Glucose Ketones Leukocytes Nitrite Labor Signs Protein Cervic Dilation Cervic Effacement Cervic Station Type Weight in lbs BP Diastolic BP Location Tested BP Systolic BP Type 72 136 sitting Fetus Heart Rate Present A Present Fetus Movement A Yes Comments Discussed C/S date. Question s answered. No concerns. F/U in 2-3 weeks for next OB visit. Wants to wait on CS until closer to 39 weeks. Reviewed risks. Willing to accept risk secondary to successful . DT+. S=D Flowsheet Date 03/27/2022 Laura Score Blood Edema Fundus Height Fundus Units Glucose Ketones Leukocytes Nitrite Labor Signs Protein Cervic Dilation Cervic Effacement Cervic Station Type Weight in lbs BP Diastolic BP Location Tested BP Systolic BP Type 66 120 Fetus Heart Rate Present A Present Fetus Movement A Yes Comments U/S results reviewed. Questi ons answered. Baby is active. F/U in 1-2 weeks for next OB visit.US shows adequate interval growth. Pt would like CS 05/08 Flowsheet Date 04/14/2022 Laura Score Blood Edema Fundus Height Fundus Units Glucose Ketones Leukocytes Nitrite Labor Signs Protein Cervic Dilation Cervic Effacement Cervic Station Type Weight in lbs BP Diastolic BP Location Tested BP Systolic BP Type 92 146 sitting Fetus Heart Rate Present A Present Fetus Movement A Yes Comments Repeat BP 136/72. Baby activ e.DT+. S=D. Doing well Menstrual History Last Menstrual Date Menses Monthly On Bcp Conception Prior Menses Frequency Hcg Plus Date Menarche Onset Age 0508/14/2021 true 9 Genetic Screening And Infection History Question Response Note Cystic Fibrosis false Any Other Genetic History false Zunilda Disease false Other Infection History false Thalassemia (Bengali, Iraqi, Mediterranean, Or Background): MCV < 80 false Patient Or Baby's Father Had A Child With Defects Not Listed Above true Pt's 8th child has a ch romosome abnormality & omphalocele Live With Someone With TB Or Exposed To TB false Patient's Age Will Be 35 Yea rs Or Older At Estimated Date of Delivery false Recurrent Loss, Or A Stillbirth false Patient Or Partner Has Histo ry Of Genital Herpes false Intellectual Disability/Autism false Maternal Metabolic Disorder (eg, Type 1 Diabetes, PKU) false History of HIV false Darrel-Sachs (eg, Jainism, Cajun , Spanish-Afghan) false History Of STD, Gonorrhea, C hlamydia, HPV, Syphilis false History of Hepatitis false Prior GBS-infected child false Neural Tube Defect (Meningom yelocele, Spina Bifida, Or Anencephaly) false Previous Carrier Screening Test false Hemophilia Or Other Blood Disorders false [place]'s Chorea false If Yes, Was Person Tested For Fragile X? false Other Inherited Genetic Or C hromosomal Disorder false Sickle Cell Disease Or Trait () false Congenital Heart Defect false Rash Or Viral Illness Since Last Menstrual Period false Muscular Dystrophy false Previous Hemoglobinopathy Evaluation false Down Syndrome false Delivery Information Delivery Date Delivery Type Labor Anesthesia Weeks Gestation Incision Type Labor Labor Length Hrs Delivered By Post Complications Tubal Sterilization Discharge Date Comments 3 [facility] 38 Michelle Lam MD Discharge Information Feeding Method Contraceptive Method Maternal HG B and HCT Levels
--- OUTSIDE RECORDS SUMMARY | 2024-03-01 03:38 | XMS_ITS | Referral Summary ---
Author Organization [facility] Address [address] [place] [address] Care Team Providers Care Dairy Nutrition Specialist Name Role Phone None Reported, Pcp Primary Care Provider Unavail able Source Comments Patient records contain information from all sites at [facility]. For routine questions regarding patient records, call [phone] during business hours, M-F 8:00 AM - 5:00 PM Central Time. Record requests for emergency care only can be directed to [phone] at any time.[facility] Allergies Active Allergy Reactions Criticality Noted Date Comments Cephalexin Anaphylaxis,Swelling High 07/16/2016 Latex Anaphylaxis,[place]io[place] ma (Reselect Reaction),Hives (Reselect Reaction) High 02/16/2012 Medications * This document contains information received from the source organization and may not represent a complete record from that organization. LORazepam (ATIVAN) 2 mg tablet Take 2 mg by mouth 3 (three) times a day as needed for anxiety. Active bqiuzta-Dh-imhx- FA 27 mg iron- 1 mg tablet [...] for pain. 100 tablet 4 3:24 PM ENGINEERING SYSTEMS ANALYST 05/21/19 24 Active fluticasone furoate (ARNUITY ELLIPTA) [...] the floor. She received her care at [facility]. Section Delivery 05/18/2023 Overview (05/18/2023): Charissa [...] kg. Jean Claude, Boy A One Charissa [[phone]] 1.58 kg Jean Claude, Girl B Two Charissa [[phone]] 1.36 kg . Gestational age: 30w1d. occurred: Contraceptive methods administered during the delivery: None Both mother was in stable condition at the conclusion of the procedure. Neonates were handed off to the Dheeraj team. When the patient met appropriate criteria, she was transferred to the floor. She received her care at [facility]. Maternal Care For Vertical S car [...] normal. Assessment & Plan (03/17/2019 3:34 PM ENGINEERING SYSTEMS ANALYST): Plan MFM consult and Level II US. Assessment & Plan (03/04/2019 1:51 PM ENGINEERING SYSTEMS ANALYST): Will offer maternal serum screen once confirmed viable. Will offer first trimester anatomy US. Plan MFM consult, Level II US, and cardiac echo. Assessment & Plan (02/27/2019 5:09 PM ENGINEERING SYSTEMS ANALYST): Will offer maternal serum screen once confirmed viable. Plan MFM consult, Level II US, and cardiac echo. Attention Deficit Hyperactive Disorder 9 Assessment & Plan (03/17/2019 3:33 PM ENGINEERING SYSTEMS ANALYST): Referral to Psychiatry scheduled for 04/01/2019. Working with Ariela Hanks in care coordination to assist with coordinating this. Dr. Finney is prescribing her Adderall in the meantime. Has had improvement in symptoms back on medication, and is happy with this, though she believes her symptoms could be better controlled. Assessment & Plan (03/04/2019 1:50 PM ENGINEERING SYSTEMS ANALYST): Plan referral to Psychiatry. Working with Ariela Hanks in care coordination to assist with coordinating this. Dr. Finney is prescribing her Adderall in the meantime. Has had improvement in symptoms back on medication, and is happy with this, though she believes her symptoms could be better controlled. Assessment & Plan (02/27/2019 4:40 PM ENGINEERING SYSTEMS ANALYST): Plan referral to Psychiatry in [place]. Referral will need to be provided by [...] frequently. Assessment & Plan (03/17/2019 3:32 PM ENGINEERING SYSTEMS ANALYST): Reports increased symptoms. Has not picked up albuterol or pulmicort. Prescriptions resent. Assessment & Plan (02/27/2019 4:41 PM ENGINEERING SYSTEMS ANALYST): Will confirm at the next visit that [...] most likely will not do due to restoration considerations. having a vasectomy. Major Depressive Disorder, [...] the 67%ile with EFW of 2543 gm. [facility] recommended follow up US in 2-3 [...] was in place. 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 She is considering the NuvaRing for contraception [...] 04/17/2019 Assessment & Plan (03/26/2019 11:43 AM ENGINEERING SYSTEMS ANALYST): US today shows a gestational sac with [...] US. Assessment & Plan (03/04/2019 1:56 PM ENGINEERING SYSTEMS ANALYST): labs and OB education will be ordered [...] 07/04/2023 Assessment & Plan (03/26/2019 11:40 AM ENGINEERING SYSTEMS ANALYST): UA/UCx negative on 03/04/2019. Assessment & Plan (03/04/2019 1:54 PM ENGINEERING SYSTEMS ANALYST): No fevers, chills, or CVA tenderness. Stress 02/27/2019 01/29/2023 Overview (01/08/2020): Please see details above under depression anxiety Maternal Care For Vertical S car From Previous Delivery 02/27/2019 04/19/2019 Overview (02/27/2019): History of classical section. Operative report reviewed. Plan delivery at 36+0 weeks - 37+6 weeks gestation. Assessment & Plan (03/17/2019 3:35 PM ENGINEERING SYSTEMS ANALYST): Plan MFM consult and Level II US. Assessment & Plan (03/04/2019 1:52 PM ENGINEERING SYSTEMS ANALYST): Plan MFM consult and Level II US. Assessment & Plan (02/27/2019 5:08 PM ENGINEERING SYSTEMS ANALYST): Plan MFM consult and Level II US. Multiparity Grand With 02/27/2019 05/28/2023 Overview (03/29/2023): Increased risk of PPH. Assessment & Plan (03/17/2019 3:35 PM ENGINEERING SYSTEMS ANALYST): CBC and type and screen upon admission for section. She has asthma, so will have Methergine immediately available at the time of delivery. We will avoid the use of Hemabate. Assessment & Plan (03/04/2019 1:52 PM ENGINEERING SYSTEMS ANALYST): CBC and type and screen upon admission for section. She has asthma, so will have Methergine immediately available at the time of delivery. We will avoid the use of Hemabate Assessment & Plan (02/27/2019 5:10 PM ENGINEERING SYSTEMS ANALYST): CBC and type and screen upon admission [...] was able to move with her to [place] and a 5-bedroom 3-bathroom house and was [...] mood-standpoint. Assessment & Plan (03/26/2019 11:38 AM ENGINEERING SYSTEMS ANALYST): Psychiatry visit is being coordinated. EPDS score 6 and GISEL-7 score 3 when last checked. She now has custody of 7 of her children and that has helped. Assessment & Plan (03/04/2019 1:50 PM ENGINEERING SYSTEMS ANALYST): Psychiatry visit is being coordinated. EPDS score 6 and GISEL-7 score 3 today. Assessment & Plan (02/27/2019 5:11 PM ENGINEERING SYSTEMS ANALYST): Plan psychiatry referral. EPDS at next visit. Mccalla II No Diagnosis 023 Immunizations Name Administration [...] drink = 0.6 oz pur e alcohol) [facility] Utilities Answer Date Recorded In the past 12 months has e flexReceipts, gas, oil, or water [employer] threatened to shut off services in your [...] and Family Not on file 01/06/2020 Attends Nondenominational Services Not on file 01/05 Do you belong to any clubs o r organizations such as baptist groups, unions, fraternal or athletic groups, or [...] Answer Date Recorded PHQ-2 Score 0 08/02/2023 [facility] - Occupational [...] living situation today? I have a [facility] place to live 05/17/2023 Education Answer Date [...] Body Mass Index 40.29 06/07/2023 10:01 AM ENGINEERING SYSTEMS ANALYST Plan of Treatment Not on file Procedures [...] MICROBIOLOGY - BLO OD ORDERABLES Final Result [facility] [address] [place] [address], [facility] [place] [address] * HPV with Genotyping, PCR, ThinPrep (01/29/2023 [...] correlated with patient's history, clinical presentation, and AUTO PHONE INSTALLER cytology report. 01/29/2023 2:28 PM CDT 01/30/2023 6:49 AM CDT Cecilio Healy Jr., M.D. LAB MICROBIOLOGY - GEN ERAL ORDERABLES Final Result [facility] [address] [place] [address], [place] [address] [address] [facility] [address] [place] [address] from Last 3 Months or Most Recently Relevant to Health Maintenance Administered Medications Insurance [facility] Advance Directives For more information, please contact: [phone] * Full Code (Latest Code Status on File) Date Activated Date Inactivated Comments 05/01/2023 10:56 AM 05/04/2023 2:22 PM Question Answer Comments Full Code: Not Discussed Due to: Not medically appropriate * Full Code Date Activated Date Inactivated Comments 01/29/2020 10:37 AM 01/29/2020 6:03 PM Question Answer Comments Full Code: Not Discussed Due to: Not medically appropriate Care Teams Dairy Nutrition Specialist Relationship Specialty Start Date End Date None Reported, Pcp PCP - General Family Medicine 07/20/23
--- OUTSIDE RECORDS SUMMARY | 2024-03-01 03:38 | XMS_ITS ---
Author Organization [facility] Address [address] [place] [address] Care Team Providers Care Window Display Designer Name Role Phone Unavailable Unavailable Unavailable Surgery Details Not on file Complications Check Surgery Details section. Procedure Estimated Blood Loss Check Surgery Details section. Procedure Findings Check Surgery Details section. Procedure Specimens Taken Check Surgery Details section.
== END 2024-02-26 14:31 | disposition home or self-care (01) ==
LOC: NFLDREF 03-01 03:35
PROVIDERS: Visit Provider Obstetrics & Gynecology
DX: Z34.91 Encounter for supervision of normal pregnancy, unspecified, first trimester (principal); Z3A.12 12 weeks gestation of pregnancy
CPT/HCPCS: 82570; 84156

== ENCOUNTER 2024-04-16 13:05 | Outpatient (CLI) | payer MEDICAID, SELFPAY | END 2024-04-16 13:06 | disposition home or self-care (01) | LOC: US 13:05 | PROVIDERS: Visit Provider Obstetrics & Gynecology | DX: Z34.92 Encounter for supervision of normal pregnancy, unspecified, second trimester (principal); Z3A.20 20 weeks gestation of pregnancy | CPT/HCPCS: 76811; 76817 ==

== ENCOUNTER 2024-05-14 12:37 | Outpatient (CLI) | payer BC, SELFPAY | END 2024-05-14 12:38 | disposition home or self-care (01) | PROVIDERS: Visit Provider Obstetrics & Gynecology | DX: O44.02 Complete placenta previa NOS or without hemorrhage, second trimester (principal); Z3A.24 24 weeks gestation of pregnancy | CPT/HCPCS: 76816; 76817 ==

== ENCOUNTER 2024-08-12 09:18 | Emergency (ER) | payer BC, SELFPAY ==
[2024-08-12 09:23] VITALS: BP 116/66; PULSE 71; RESP 16; TEMP 36.5; O2SAT 98; BMI 40.7
--- NOTE | 2024-08-12 09:35 | ED_ITS ---
HPI - Skin/Abscess/Foreign Bdy General Time Seen by Provider: 09:35 Date Seen: 08/12/24 Chief complaint: Skin/Abscess/Foreign Body Stated complaint: incision open needs to get it checked Time Seen by Provider: 08/12/24 09:35 Source: patient and RN notes reviewed Mode of arrival: ambulatory Limitations: no limitations History of Present Illness HPI narrative: Nichelle is a 34-year-old female with recent history of and hysterectomy who comes to the emergency room for evaluation regarding open wound. Nichelle was with her child and had a placenta previa. She delivered in the [facility] on July 21 via and had a hysterectomy at that time. She followed up on August 04 at which time she had an infection in her wound. She states that she was told it was superficial but when under general anesthesia to have it washed out. Lesia were replaced at that time on a vertical incision in the lower abdomen. She notes that lesia were removed yesterday but is stream she got into the car part of her wound popped open. She notes that she has had bleeding from this wound. She does not know if she has had a fever as she takes Tylenol and ibuprofen round the clock. She also takes 5 mg of oxycodone every 4 hours. She notes that she has pain inferior to the area that is open. She has not had any vomiting but does not feel well. 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 Her works nights and so she is often alone taking care of the kids. Related Data Home Medications ?Medication ?Instructions ?Recorded ?Confirmed docosahexaenoic acid 200 mg mg PO 01/29/24 05/23/24 capsule ( DHA) ibuprofen 200 mg tablet 200 mg PO Q6H PRN 01/29/24 05/23/24 acetaminophen 325 mg tablet PO 08/12/24 amoxicillin 875 mg-potassium 1 tab PO BID 08/12/24 08/12/24 clavulanate 125 mg tablet cyclobenzaprine 10 mg tablet 10 mg PO 3XD 08/12/24 08/12/24 dextroamphetamine-amphetamine 20 1 tab PO 3XD 08/12/24 08/12/24 mg tablet fluconazole 150 mg tablet 150 mg PO Q3D 08/12/24 08/12/24 fluticasone furoate 200 1 inh inhalation DAILY 08/12/24 08/12/24 mcg/actuation blister powder for inhalation (Arnuity Ellipta) gabapentin 400 mg capsule 400 mg PO TID 08/12/24 08/12/24 hydrochlorothiazide 25 mg tablet 25 mg PO DAILY 08/12/24 08/12/24 hydroxyzine HCl 50 mg tablet PO 08/12/24 lorazepam 2 mg tablet 2 mg PO BID-TID PRN 08/12/24 08/12/24 lysine 500 mg tablet (L-Lysine) 500 mg PO DAILY 08/12/24 08/12/24 magnesium oxide 200 mg PO DAILY 08/12/24 08/12/24 metoclopramide HCl 5 mg tablet 5 mg PO DAILY 08/12/24 08/12/24 nifedipine 30 mg tablet,extended 30 mg PO DAILY 08/12/24 08/12/24 release nifedipine 30 mg tablet,extended 60 mg PO HS 08/12/24 08/12/24 release sennosides 8.6 mg-docusate sodium 1 tab PO DAILY 08/12/24 08/12/24 50 mg tablet (Stimulant Laxative Plus) Previous Rx's ?Medication ?Instructions ?Recorded dextroamphetamine-amphetamine ER 50 mg (2 x 25 mg) PO QDAY #60 caps 05/14/24 25 mg 24hr capsule,extend release dextroamphetamine-amphetamine ER 50 mg (2 x 25 mg) PO QDAY #14 caps 05/16/24 25 mg 24hr capsule,extend release (Adderall XR) UIBLUEPRINT pelvic floor stimulator #1 ea 05/31/24 Allergies Allergy/AdvReac Type Severity Reaction Status Date / Time cephalexin (From Keflex) Allergy Intermediate Verified 08/12/24 09:22 latex Allergy Mild Verified 08/12/24 09:22 Review of Systems Status of ROS: Reports: 6 or more systems reviewed and unremarkable except as noted in History and below [facility] Medical History delivery ?O60.10X0 - labor with delivery, unspecified trimester, not applicable or unspecified (ICD-10) Surgical History History of appendectomy ?Z90.49 - Acquired absence of other specified parts of digestive tract (ICD- 10) S/P section ?Z98.891 - History of uterine scar from previous surgery (ICD-10) Exam Narrative: Exam Narrative: Charissa is alert and oriented. No acute distress. Unfortunately I interrupted her preparations for breast pumping. Eyes are clear face symmetrical. Neck is supple. Heart with a regular rate and rhythm and lungs are clear bilaterally. Well-healed scar noted on upper back left posterior arm. Abdomen is soft. Patient has a scar from the umbilicus to the pubic bone. There is an open area in the middle 3rd measuring approximately 7-1/2 cm. It does gape open approximately 8 mm. There is no drainage or bleeding at this time. There is no surrounding erythema and no significant tenderness. Inferior to this area scar does appear to be intact but there is an area of increased tenderness somewhat firm. No surrounding erythema but this does appear to cause more discomfort with palpation. Const: Vital Signs, click to edit/add: Vital Signs - 24 hr 08/12/24 09:23 Temperature 97.7 F Pulse Rate [Pulse Oximeter] 71 Respiratory Rate 16 Blood Pressure [Ri ght Upper Arm] 116/66 Pulse Oximetry 98 Oxygen Delivery Me thod Room Air Documenting provider has reviewed patient's vital signs: yes Course Course ED Course: At this time patient is currently on antibiotics, afebrile with normal pulse. Examination of the wound does not show any obvious infection but certainly dehiscence of the wound in the mid aspect. I advise against recent suturing as patient is requesting. I will ask for OBGYN consult. Consultations Consultation #1: Dr Corona, OBGYN recruiting operations consultant, did see patient in the ED. Recommends wet to dry dressings and healing by secondary intention. Vital Signs Vital signs: Initial Vital Signs Temperature 97.7 F 08/12/24 09:23 Temperature Source Temporal Artery Scan 08/12/24 09:23 Pulse Rate 71 08/12/24 09:23 Pulse Rhythm Regular 08/12/24 09:23 Pulse Strength 3+ Normal 08/12/24 09:23 Respiratory Rate 16 08/12/24 09:23 Blood Pressure 116/66 08/12/24 09:23 Blood Pressure Mean 82 08/12/24 09:23 Blood Pressure Position Sitting 08/12/24 09:23 Pulse Oximetry 98 08/12/24 09:23 Oxygen Delivery Method Room Air 08/12/24 09:23 Vital Signs Temperature 97.7 F 08/12/24 09:23 Pulse Rate 71 08/12/24 09:23 Respiratory Rate 16 08/12/24 09:23 Blood Pressure 116/66 08/12/24 09:23 Pulse Oximetry 98 08/12/24 09:23 Oxygen Delivery Method Room Air 08/12/24 09:23 Temperature 97.7 F 08/12/24 09:23 Pulse Rate 71 08/12/24 09:23 Respiratory Rate 16 08/12/24 09:23 Blood Pressure 116/66 08/12/24 09:23 Pulse Oximetry 98 08/12/24 09:23 Oxygen Delivery Method Room Air 08/12/24 09:23 MDM - Skin/Abscess/Foreign Bdy MDM Narrative Medical decision making narrative: 1. Surgical wound dehiscence-consult with OBGYN. Wet to dry dressings. Follow- up on Sunday with previously scheduled appointment with OBGYN. Return for fever, increasing redness and worsening symptoms. 2. Status post wound infection-continue antibiotic 3. Disposition-home at this time. Return as needed. Medical Records Attestation: I reviewed the patient's medical records. Discharge Plan Discharge Clinical Impression: Abdominal wound dehiscence, History of wound infection Patient Disposition: Home, Self-Care Condition: Improved Additional Instructions: Continue with the wet-to-dry wound dressings as demonstrated by Dr. Corona Seek medical attention for fever, increasing redness and as needed Follow-up as scheduled on Sunday at the OBGYN clinic. Return as needed Prescriptions: No Action ibuprofen 200 mg tablet 200 mg PO Q6H PRN DHA 200 mg capsule PO (DME) Heavenly pelvic floor stimulator See Rx Instructions .Route .MEDSUPPLY Qty: 1 0RF Rx Instructions: As directed cyclobenzaprine 10 mg tablet 10 mg PO 3XD acetaminophen 325 mg tablet PO fluconazole 150 mg tablet 150 mg PO Q3D gabapentin 400 mg capsule 400 mg PO TID dextroamphetamine-amphetamine 20 mg tablet 1 tab PO 3XD amoxicillin-pot clavulanate 875-125 mg tablet 1 tab PO BID Arnuity Ellipta 200 mcg/actuation blister with device 1 inh inhalation DAILY hydroxyzine HCl 50 mg tablet PO hydrochlorothiazide 25 mg tablet 25 mg PO DAILY sennosides-docusate sodium [Stimulant Laxative Plus] 8.6-50 mg tablet 1 tab PO DAILY lysine [L-Lysine] 500 mg tablet 500 mg PO DAILY lorazepam 2 mg tablet 2 mg PO BID-TID PRN magnesium oxide 200 mg magnesium tablet 200 mg PO DAILY metoclopramide HCl 5 mg tablet 5 mg PO DAILY nifedipine 30 mg tablet extended release 30 mg PO DAILY nifedipine 30 mg tablet extended release 60 mg PO HS dextroamphetamine-amphetamine 25 mg capsule,extended release 24hr 50 mg PO QDAY Qty: 60 0RF dextroamphetamine-amphetamine [Adderall XR] 25 mg capsule,extended release 24hr 50 mg PO QDAY Qty: 14 0RF Follow Up/Referrals: Provider,Not a Local [Primary Care Provider] - Stand Alone Forms: [employer] Info Instructions
--- OUTSIDE RECORDS SUMMARY | 2024-08-12 10:05 | XMS_ITS | Clinical Summary ---
Author Organization [facility] Address [address] [place] [address] Care Team Providers Care Network Manager Name Role Phone None Reported, Pcp Primary Care Provider Unavail able Source Comments Patient records contain information from all sites at [facility]. For routine questions regarding patient records, call [phone] during business hours, M-F 8:00 AM - 5:00 PM Central Time. Record requests for emergency care only can be directed to [phone] at any time.[facility] Allergies Active Allergy Reactions Criticality Noted Date Comments Cephalexin Anaphylaxis,Swelling High 07/16/2016 Latex Anaphylaxis,[place] ma (Reselect Reaction),Hives (Reselect Reaction) High 02/16/2012 Medications * This document contains information received from the source organization and may not represent a complete record from that organization. LORazepam (ATIVAN) 2 mg tablet Take 2 mg by mouth 3 (three) times a day as needed for anxiety. Active [id number]-Vo-ctwy- FA 27 mg iron- 1 mg tablet [...] for pain. 100 tablet 4 3:24 PM MERCHANDISE PLANNING MANAGER 05/21/19 24 Active fluticasone furoate (ARNUITY ELLIPTA) [...] the floor. She received her care at [facility]. Section Delivery 05/18/2023 Overview (05/18/2023): Charissa [...] kg. Jean Claude, Boy A One Charissa [[phone]] 1.58 kg Jean Claude, Girl B Two Charissa [[phone]] 1.36 kg . Gestational age: 30w1d. occurred: Contraceptive methods administered during the delivery: None Both mother was in stable condition at the conclusion of the procedure. Neonates were handed off to the Dheeraj team. When the patient met appropriate criteria, she was transferred to the floor. She received her care at [facility]. Maternal Care For Vertical S car [...] normal. Assessment & Plan (03/17/2019 3:34 PM MERCHANDISE PLANNING MANAGER): Plan MFM consult and Level II US. Assessment & Plan (03/04/2019 1:51 PM MERCHANDISE PLANNING MANAGER): Will offer maternal serum screen once confirmed viable. Will offer first trimester anatomy US. Plan MFM consult, Level II US, and cardiac echo. Assessment & Plan (02/27/2019 5:09 PM MERCHANDISE PLANNING MANAGER): Will offer maternal serum screen once confirmed viable. Plan MFM consult, Level II US, and cardiac echo. Attention Deficit Hyperactive Disorder 9 Assessment & Plan (03/17/2019 3:33 PM MERCHANDISE PLANNING MANAGER): Referral to Psychiatry scheduled for 04/01/2019. Working with Ariela Hanks in care coordination to assist with coordinating this. Dr. Finney is prescribing her Adderall in the meantime. Has had improvement in symptoms back on medication, and is happy with this, though she believes her symptoms could be better controlled. Assessment & Plan (03/04/2019 1:50 PM MERCHANDISE PLANNING MANAGER): Plan referral to Psychiatry. Working with Ariela Hanks in care coordination to assist with coordinating this. Dr. Finney is prescribing her Adderall in the meantime. Has had improvement in symptoms back on medication, and is happy with this, though she believes her symptoms could be better controlled. Assessment & Plan (02/27/2019 4:40 PM MERCHANDISE PLANNING MANAGER): Plan referral to Psychiatry in [place]. Referral will need to be provided by [...] frequently. Assessment & Plan (03/17/2019 3:32 PM MERCHANDISE PLANNING MANAGER): Reports increased symptoms. Has not picked up albuterol or pulmicort. Prescriptions resent. Assessment & Plan (02/27/2019 4:41 PM MERCHANDISE PLANNING MANAGER): Will confirm at the next visit that [...] most likely will not do due to rastafari considerations. having a vasectomy. Major Depressive Disorder, [...] the 67%ile with EFW of 2543 gm. [facility] recommended follow up US in 2-3 [...] was in place. She also reports failing BROADCAST CORRESPONDENT. She is considering the NuvaRing for contraception [...] 04/17/2019 Assessment & Plan (03/26/2019 11:43 AM MERCHANDISE PLANNING MANAGER): US today shows a gestational sac with [...] US. Assessment & Plan (03/04/2019 1:56 PM MERCHANDISE PLANNING MANAGER): labs and OB education will be ordered [...] 07/04/2023 Assessment & Plan (03/26/2019 11:40 AM MERCHANDISE PLANNING MANAGER): UA/UCx negative on 03/04/2019. Assessment & Plan (03/04/2019 1:54 PM MERCHANDISE PLANNING MANAGER): No fevers, chills, or CVA tenderness. Stress 02/27/2019 01/29/2023 Overview (01/08/2020): Please see details above under depression anxiety Maternal Care For Vertical S car From Previous Delivery 02/27/2019 04/19/2019 Overview (02/27/2019): History of classical section. Operative report reviewed. Plan delivery at 36+0 weeks - 37+6 weeks gestation. Assessment & Plan (03/17/2019 3:35 PM MERCHANDISE PLANNING MANAGER): Plan MFM consult and Level II US. Assessment & Plan (03/04/2019 1:52 PM MERCHANDISE PLANNING MANAGER): Plan MFM consult and Level II US. Assessment & Plan (02/27/2019 5:08 PM MERCHANDISE PLANNING MANAGER): Plan MFM consult and Level II US. Multiparity Grand With 02/27/2019 05/28/2023 Overview (03/29/2023): Increased risk of PPH. Assessment & Plan (03/17/2019 3:35 PM MERCHANDISE PLANNING MANAGER): CBC and type and screen upon admission for section. She has asthma, so will have Methergine immediately available at the time of delivery. We will avoid the use of Hemabate. Assessment & Plan (03/04/2019 1:52 PM MERCHANDISE PLANNING MANAGER): CBC and type and screen upon admission for section. She has asthma, so will have Methergine immediately available at the time of delivery. We will avoid the use of Hemabate Assessment & Plan (02/27/2019 5:10 PM MERCHANDISE PLANNING MANAGER): CBC and type and screen upon admission [...] was able to move with her to [place] and a 5-bedroom 3-bathroom house and was [...] mood-standpoint. Assessment & Plan (03/26/2019 11:38 AM MERCHANDISE PLANNING MANAGER): Psychiatry visit is being coordinated. EPDS score 6 and GISEL-7 score 3 when last checked. She now has custody of 7 of her children and that has helped. Assessment & Plan (03/04/2019 1:50 PM MERCHANDISE PLANNING MANAGER): Psychiatry visit is being coordinated. EPDS score 6 and GISEL-7 score 3 today. Assessment & Plan (02/27/2019 5:11 PM MERCHANDISE PLANNING MANAGER): Plan psychiatry referral. EPDS at next visit. [place] II No Diagnosis 023 Immunizations Immunization Administration Dates Next Due 4vHPV (discontinued) 05/02/2007,07/17/2006,04/19 [...] drink = 0.6 oz pur e alcohol) [facility] [employer] Answer Date Recorded In the past 12 months has e [employer], gas, oil, or water [employer] threatened to shut off services in your [...] and Family Not on file 01/06/2020 Attends [employer] Not on file 01/05 Do you [...] Answer Date Recorded PHQ-2 Score 0 08/02/2023 [facility] [place] of Occupat ional Health - Occupational Stress [...] your living situation today? I have a [facility] place to live 05/17/2023 Education Answer Date Recorded What is the highest level of school you have completed or the highest degree you have received? Some college, no degree 01/06/2020 Comments Unknown Sex and Gender Information Value Date Recorded [...] Body Mass Index 40.29 06/07/2023 10:01 AM MERCHANDISE PLANNING MANAGER Plan of Treatment Health Maintenance Due Date Last Done Comments Pneumococcal vaccine (0-49 y ears) (1 of 2 - PCV) 2011 Asthma Action Plan 02/26/2019 Asthma Control Test Questionnaire 10/26/2022 023 Asthma Management/Exacerbati on Questionnaire (AMQ/AEQ) 09/15/2023 09/14/2022 COVID-19 Vaccine (1 - 2023-2 5 season) 2023 Influenza Vaccine (#1) 2024 Depression Screening (Annual PHQ-2) 04/09/2024 DTaP,Tdap,and Td Vaccines (1 0 - Td or Tdap) 11/20/2026 11/20/2016, 06/01/2015, 09/15/2009, Additional history exists Cervical/Vaginal Cancer Screening 01/30/2028 023, 01/29/2023 Hepatitis B Vaccines Completed 08/22/1994, 1992, 1992 IPV Vaccines Completed 06/08/1997, 11/3 , 1992, Additional history exists HPV Vaccines Completed 05/02/2007, 041 , 04/19/2006 Varicella Vaccines Completed 06/01/2015, 1 04/24/2005, 08/22/1994 HIV Screening Completed 01/29/2023, 06/0 11/2022, 12/29/2019 Hepatitis B Screening Discontinued 01/29/2023 , 04/10/2021, 12/29/2019 Procedures Procedure Name Priority Date/Time Associated Diagnosis Comments HIV-1/-2 AG AND AB SCRN, PLASMA Routine 01/29/2023 3:16 PM CDT Encounter For Supervision Of Other Normal Unspecified Trimester (HCC) HEPATITIS B SURFACE ANTIGEN Routine 01/29/2023 3:16 PM CDT Encounter For Supervision Of Normal Unspecified Trimester (HCC) HPV WITH GENOTYPING, [...] MICROBIOLOGY - BLO OD ORDERABLES Final Result [facility] [address] [place] [id number], [facility] in [address] [address] * Hepatitis B Surface Antigen (01/29/2023 3:16 PM CDT) Pathologist [facility] Antigen, S Nonreactive Nonreactive 01/29/2023 10:21 PM CDT [facility] Blood (Blood, Venous) 01/29/2023 3:16 PM CDT 01/29/2023 9:37 PM CDT Cecilio Healy Jr., M.D. LAB MICROBIOLOGY - BLO OD ORDERABLES Final Result [facility] [address] [place] [address], [facility] [address] [place] [address] * HPV with Genotyping, PCR, ThinPrep (01/29/2023 [...] correlated with patient's history, clinical presentation, and HISTORICAL SOCIETY DIRECTOR cytology report. 01/29/2023 2:28 PM CDT 01/30/2023 6:49 AM CDT Cecilio Healy Jr., M.D. LAB MICROBIOLOGY - GEN ERAL ORDERABLES Final Result [facility] [address] [place] [address], [place] [address] [address] from Last 3 Months or Most Recently Relevant to Health Maintenance Insurance [facility] Advance Directives For more information, please contact: [phone] * Full Code (Latest Code Status on File) Date Activated Date Inactivated Comments 05/01/2023 10:56 AM 05/04/2023 2:22 PM Question Answer Comments Full Code: Not Discussed Due to: Not medically appropriate * Full Code Date Activated Date Inactivated Comments 01/29/2020 10:37 AM 01/29/2020 6:03 PM Question Answer Comments Full Code: Not Discussed Due to: Not medically appropriate Care Teams Network Manager Relationship Specialty Start Date End Date None Reported, Pcp PCP - General Family Medicine 07/20/23
--- OUTSIDE RECORDS SUMMARY | 2024-08-12 10:06 | XMS_ITS | Referral Summary ---
Author Organization [facility] Address [address] [place] [address] Care Team Providers Care Greenskeeper Supervisor Name Role Phone Lucretia, Md Primary Care [...] of Treatment Not on file Care Teams Greenskeeper Supervisor Relationship Specialty Start Date End Date None, PCP - General 09/24/18 None, PCP - Primary Care Clinic 09/24/18
--- OUTSIDE RECORDS SUMMARY | 2024-08-12 10:06 | XMS_ITS | Clinical Summary ---
Author Organization [employer] [facility] Address [address] [place] [id number] Care Team Providers Care Site Acquisition Manager Name Role Phone Pcp, No Primary Care Provider Unavailabl e Allergies Active Allergy Reactions Criticality Noted Date Comments Cephalexin Angioedema 07/16/2016 Latex Hives,Angioedema High 12/02/2015 Nonoxynol 9 Throat Swelling/Closing High 07/17/2021 Allergic to spermicide Spermaceti Throat Swelling/Closing High 02/13/2011 PN: allergic to spermacides Medications albuterol (PROVENTIL) 0.083 % neb solutionIndication s:Exacerbation of asthma, unspecified asthma severity, unspecified whether persistent (HC) Inhale 3 mL via a nebulizer every 4 hours if needed. 1 box 08/28/19 18 Active albuterol HFA 90 mcg/actuation inhalerIndications :Mild intermittent asthma without complication (HC) Inhale 1-2 Puffs by mouth every 4 hours if needed. 2 Inhaler 3 05/09/19 19 Active budesonide (PULMICORT) 90 mcg/actuation inhalerIndications :Mild intermittent asthma with acute exacerbation (HC) Inhale 90 mcg by mouth 2 times daily. 1 Inhaler 5 06/14/19 19 Active EPINEPHrine (EPIPEN) 0.3 mg/0.3 mL injectionIndicatio ns:Allergic reaction, initial encounter Inject 0.3 mg intramuscular one time if needed for Allergic Reaction. 2 Each 01/09/20 19 Active dextroamphetamine/ amphetamine (ADDERALL XR ORAL) Take 40 mg by mouth once daily. Active 25/iron fum/folic/dha (-1 ORAL) Take 1 Tablet by mouth. Active Blood Pressure MonitorIndications :Normal labor and delivery (HC),, delivered (HC) Take blood pressure twice daily. Call if your blood pressure is above 150/100 (either number). 1 Each 04/12/19 22 Active ondansetron (ZOFRAN ODT) 4 mg disintegrating tabletIndications: COVID-[address] Place 1 Tablet (4 mg) on the tongue every 8 hours if needed for Nausea/Vomiting. 12 Tablet 11/16/19 22 Active folic acid 1 mg tablet Take 1 mg by mouth once daily. 02/08/20 23 Active acetaminophen (TYLENOL EXTRA STRGTH) 500 mg tablet Take 1,000 mg by mouth every 6 hours if needed. 05/21/19 24 Active Active Problems Patient Care Coordination [...] manic episode 022 Overview (08/16/2021): Created by [employer] [facility] Annotation: Jul 07 2011 3:48PM - Suha Dyer: Stopped meds 2008 Replacement Utility updated for latest IMO load De Quervain's tenosynovitis 08/16/2021 Overview (08/16/2021): Created by [facility] 08/16/2021 Overview (08/16/2021): Created by Conversion [...] was able to move with her to [place] and a 5-bedroom 3-bathroom house and was [...] - 37w0d given history of prior classical. [facility] did not give specific recommendations regarding this, but since her trimester US, will plan repeat section on 02/02/2020 at 38+0 weeks, since 37+6 weeks is on a Sunday. Plan delivery in [employer]. Encounter for immunization 01/01/2020 Overview (08/16/2021): Rubella [...] the 67%ile with EFW of 2543 gm. [facility] recommended follow up US in 2-3 weeks for growth based upon dating in the 3rd trimester. This was ordered today. Personal history of contraception 12/29/2019 Overview (08/16/2021): 12/28 EK: patient reports prior conception (7th ) while an IUD was in place. She also reports failing GR[employer] S[employer]ER. 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 NEXT VISIT ALERTS: PLANS & FUTURE APPOINTMENTS: - OB visits through: 01/17/18 with H&P with MD TESTING PLAN: Weekly at 28 weeks with doppler - Testing through: 01/17/18 GROWTH PLAN: -Next Growth u/s: DELIVERY PLAN: on 01/10 delivery 37-38 weeks due to IUGR - Scheduled delivery: 01/21/18 @ 1400 - Preferred delivery location: [facility] PRIMARY DIAGNOSIS: 27 y.o. Estimated Date of [...] defect. REFERRING PHYSICIAN/PHONE/LAST UPDATE: Dr Teresa Childress [phone] Primary MD approves scheduling of recommended ultrasounds/testing. SPECIALISTS/CONSULTS: Neonatology 01/10/18 Pediatric Surgery: 11/26 Dr. Hitchcock [facility] Tour ALVAREZ signed for [facility]: Signed 10/29/17 CARE COORDINATION: Johana Vieira RN/Marva Lai, RN/Trisha Tobar RN/Lea Khan RN [phone] [employer]: DIAMOND Guillory FRAME ASSEMBLER: Pager: [phone] GENETICS: Beto Enciso done 10/08/17-low risk PROCEDURES: 12/18 MRI [facility] 09/11/17 Maternal abd U/S 1. No [...] assistance? YES CHECKLIST FOR SCHEDULING PROCEDURES: Call [phone] for [place] and [phone] for [place] ([facility] cerclages Day Surgery [phone]) Procedure: C/ Hospital: [place] Unit: L&D Date & Time of procedure: 01/21/18 at 1400pm Laura Score if induction: N/A Pertinent information: Omphalocele containing liver, bowel and stomach Gestational age on procedure date? 37w0d MD doing procedure: Dr. Douglas Date scheduled: 01/10/18 when pt was 35w3d; Rescheduled 01/17/18 Scheduling MD & RN: Dr Boggs/NORBERT Covington Notifications: Hospitalist Delivery-OBH advertising sales consultant notified through [employer] inbox? Yes [facility] MD advertising sales consultant notified via [employer] inbox? Yes Primary MD notified via [employer] inbox? No Primary MD clinic called if not [employer] POS[employer]tha? No On [facility] calendar? Yes Care Coordination notified? Yes H&P/PPTL: PPTL permit signed? Not Applicable H&P and Plan in chart? No [facility] appointment made for H&P with PEDIATRIC LICENSED PRACTICAL NURSE within 7 days of surgical procedure? Yes Date: 01/17/18 with MD Patient notification: Patient notified of procedure date? Yes Written admission instructions given to patient via AVS? Given 01/10/18 PLAN OF CARE: 01/10/18 per SS -Continue with routine care through [facility]. -Continue weekly testing -Plan for delivery [...] H/O vag delivery x 6 (09/15/2009- male (Jacob), 10/12/2010- female (Balbir), 12/18/2011- female (Mildred), 01/12/2013- female (Arpita), 05/07/2014- male (Leroy), 05/31/15-male (Abdirahman) BMI:# 33 Recommended wt gain 15 lbs Right ovarian cyst (first trimester hemorrhagic, resolved now simple at 11 weeks 5 cm size) Declines genetic screen Peds: Dr Gaona : Jacob Abnormal in first trimester 01/10/2016 12/22/2016 Overview [...] Decreased movements in third trimester 01/21/2018 Immunizations Immunization Administration Dates Next Due DTP 03/08/1993,1992,1992 DTP-HIB [...] Answer Date Recorded PHQ-2 Score 6 01/15/2019 Estimated Date of Delivery Comme nts Yes 09/02/2024 Sex and Gender Information Value Date Recorded Sex Assigned at Not on file Legal Sex Female 7:53 AM TRAINING DEVELOPER Gender Identity Not on file Sexual Orientation Not on file Obstetrics History Para Term AB IAB SAB Ectopic Multiple Livin g Live Births 18 11 10 0 4 0 2 0 0 10 10 Date Outcome GA Total Labor Labor/2nd/3rd Weight Sex Type Anes PTL Megha A1 A5 Name Clin Term 2006 AB ECTOPI C 9 AB ELECTI VE AB 2009 Term 38w 3d 3.25 kg (7 lb 2.8 oz) M Vag-Sp ont None Y Livin g 9 9 Jacob arreguin Complications:None Delivery Location:[facility] Comments:Teen Pregnanc y 2010 Term 37w 0d [...] 8 PELTI ER,BG IVORY jaramillo Complications:None Delivery Location:[facility] 2017 Term 37w 0d 0h 02m 2.4 kg (5 lb 4.7 oz) M CS-Cla ssical Spinal Livin g 8 8 PELTI ER,BB IVORY Menezes r/Ahr ens Complications:None,Known fet al anomaly, antepartum (HC) Delivery Location:[id number] [place] Comments:baby with omp alocele, IUGR, VSD 2018 SAB 9w0 d 2019 Term 37w 3d 3.29 kg (7 lb 4 oz) M CS-LTr anv Spinal Livin g Delivery Location:[facility] 2021 Para 0h 10m 0h 10m 2.47 kg (5 lb 7.1 oz) F None Livin g PELTI ER,BG IVORY Beltran let, Tana best Mansf ield, DO Complications:Precipitous la bor (< 3 hours) Delivery Location:Hospital ( [facility]) Current Comments Last was a C-Secti on and did a T-Cut on uterus causing baby to have organs born on the outside of body. Rea Gonzalez [facility] 05/22/2018 1:01 PM No other issues/no episiotomy. Rea Gonzalez [facility] 05/22/2018 1:02 PM Last Filed Vital Signs Vital Sign Reading Time Taken Comments Blood Pressure 114/59 04/08/2024 8:52 AM TRAINING DEVELOPER Pulse 97 04/08/2024 8:52 AM TRAINING DEVELOPER Temperature 36.5 C (97.7 F) 04/08/2024 8:52 AM TRAINING DEVELOPER Respiratory Rate 20 04/08/2024 8:52 AM TRAINING DEVELOPER Oxygen Saturation 99% 04/08/2024 8:52 AM TRAINING DEVELOPER Inhaled Oxygen Concentration - - Weight 96.2 kg (212 lb) 04/08/2024 8:52 AM TRAINING DEVELOPER Height 160 cm (5' 3) 04/30/2023 4:38 PM TRAINING DEVELOPER Body Mass Index 37.55 04/30/2023 4:38 PM TRAINING DEVELOPER Plan of Treatment Health Maintenance Due Date Last Done Comments Pap test for age 21-65 06/23/2019 06/22/2016 BMI (ht and wt on same day) for age 18+ 01/17/2020 01/16/2019, 01/08/2019, 07/31/2018, Additional history exists Depression screening for age 12+ 01/18/2020 01/17/2019, 01/16/2019, 01/15/2019, Additional history exists COVID-19 vaccine series (2023-25 season) 2023 Influenza Vaccine (Season Ended) 2024 Tetanus booster 11/20/2026 11/20/2016, 05/11, 09/15/2009, Additional history exists Tdap Completed 11/20/2016, 05/11, 09/15/2009, Additional history exists Hepatitis C screening for age 18-79 Completed 12/18/2016 HIV for age 15-65 Completed 04/10/2021, , 06/19/2016, Additional history exists Pneumococcal series for age 6-49 Aged Out No longer eligible based on patient's age to complete this topic RSV vaccine for adults or (No Doses Required) Completed Procedures Procedure Name Priority Date/Time Associated Diagnosis Comments ANTI HIV 1/2 Today 04/10/2021 10:19 PM TRAINING DEVELOPER ANTI HCV Routine 12/18/2016 3:58 PM CDT Grand multiparity with current , third trimester (HC) Supervision of other normal , antepartum (HC) HANGING FLAGS DECORATOR THIN PREP PAP SCREEN IMAGED Routine 06/22/2016 11:52 AM CDT Screening for malignant neoplasm of cervix from Last 3 Months or Most Recently Relevant to Health Maintenance Results * ANTI HIV 1/2 (04/10/2021 10:19 PM TRAINING DEVELOPER) HIV-1/HIV-2 ANTIBODY Non-Reacti ve Non-Reacti ve 04/11/2021 3:06 PM TRAINING DEVELOPER [facility] Comment:HIV-1 p24 and HIV-1/ HIV-2 Ab not detected. Blood BLOOD SPECIMEN / Unknown Venipuncture / Unknown 04/10/2021 10:19 PM TRAINING DEVELOPER 04/10/2021 10:28 PM TRAINING DEVELOPER us Marianne Fairbanks DO SEND OUTS Fin al Result [facility] [address] [place] [address], [place] * ANTI HCV (12/18/2016 3:58 PM CDT) HEPATITIS C ANTIBODY Non-Reacti ve Non-Reacti ve 12/18/2016 11:31 PM CDT [facility] Blood BLOOD SPECIMEN / Unknown Venipuncture / Unknown 12/18/2016 3:58 PM CDT 12/18/2016 3:58 PM CDT Narrative [facility] - 12/18/2016 11:31 PM CDT Antibodies to HCV not detected; does not exclude the possibility of exposure to HCV. us Teresa Chaudhary MD SEND OUTS F inal Result [facility] [address] [place] [address], [place] * HANGING FLAGS DECORATOR THIN PREP PAP SCREEN IMAGED (06/22/2016 11:52 AM CDT) Case Report Gynecologic Cytology Report Case: [id number] Authorizing Provider: Ana Holliday DO Collected: 06/22/2016 1152 Ordering Location: [facility] Received: 06/22/2016 1152 [facility] First Screen: Jen Velazquez Specimen: HANGING FLAGS DECORATOR ThinPrep Vial Screening, Cervical 06/29/2016 2:14 PM CDT [facility] [employer] [facility] INTERPRETATION/ RESULT NEGATIVE FOR INTRAEPITHELIAL LESION OR MALIGNANCY (NIL) (none) 06/29/2016 2:14 PM CDT [facility] EN[facility] at 1414 CDT SPECIMEN ADEQUACY Satisfactory for evaluation Endocervical component present Obscuring Inflammation 06/29/2016 2:14 PM CDT [facility] [employer] ENTRAL LABORATORY HPV REQUEST HPV if ASCUS 06/29/2016 2:14 PM CDT [facility] [employer] [facility] Date of LMP 06/29/2016 2:14 PM CDT [facility] Last Pap Date 2016/ outside of [facility] 06/29/2016 2:14 PM CDT [facility] Last Pap Result NIL 7 2:14 PM CDT [facility] Abnormal Pap or [place] Bx in last 5 years No 06/29/2016 2:14 PM CDT [facility] Menstrual Status 06/29/2016 2:14 PM CDT [facility] [place] Bx Done Today No 06/29/2016 2:14 PM CDT [facility] Additional Information None given 06/29/2016 2:14 PM CDT [facility] Automated Review Successful 06/29/2016 2:14 PM CDT [facility] Comment:Specimen processed s uccessfully by automated document preparation specialist device, [employer] System, [employer] Note The pap test is a screening technique, not a diagnostic procedure. It is used primarily to screen for squamous cancers and precursor lesions. Published studies have shown that it is subject to both false negative and false positive results. The pap test should not be used as the sole means to diagnose or exclude pre-malignant and malignant lesions. Interpreted at [facility] ([facility], [facility], [facility], [facility], [facility], [facility], [facility]) 06/29/2016 2:14 PM T [facility] Other (Cervical) 06/22/2016 11:52 AM CDT 06/22/2016 11:52 AM CDT us Ana Holliday DO PATHOLOGY/CYTOLOGY Final R esult [facility] [address] [place] [address], [place] from Last 3 Months or Most Recently Relevant to Health Maintenance Insurance [employer] Advance Directives * Full Code (Latest Code [...] 10:52 PM 01/12/2017 1:06 AM Care Teams Site Acquisition Manager Relationship Specialty Start Date End Date Pcp, No . PCP - General 04/30/23
--- OUTSIDE RECORDS SUMMARY | 2024-08-12 10:06 | XMS_ITS | Data Portability ---
Author Organization [place] [facility] [employer], [id number] Address [address] [place] [address] [address] [place] [address] Assessment No assessment recorded. Plan of Treatment Reminders Order Date Submit Date Provider Last Modified By Organization Details Last Modified Time Details Appointments None record ed. Lab None record ed. Referral None record ed. Procedures None record ed. Surgeries None record ed. Imaging US, obstet neri, follow -up 022 03/27/20 22 [email or web address] [id number] [facility] d, [address] [facility], [address], [place], [address], 2 15:50:58 Medication Orders None record ed. Patient TargetsNo targets recorded. Patient Instructions Encounter Date Encounter Id Patient Instructions Last Modified By Organization Details Last Modified Time 04/14/2022 [id number] - Doing well. Al l questions answered. [email or web address] Not available 04/10/2022 22:52:25 05/18/2022 [id number] - Maintain a healthy diet and exercise, [...] total Nonrea ctive nonrea ctive Not Available [address], [place], [address], 02/28/2022 11:49:56 02/28/20 22 02/27/2022 hemog lobin (Hb), blood hemoglobin, blood 13.0 g/dL 12.0-1 5.0 normal Not Available [id number] [facility] [address] [facility] [facility] [address], [place], [address], 02/27/2022 15:36:35 02/28/20 22 02/27/2022 gluco se ollie ance test, 1-atilio r 1 hour post-glucola serum glucose 98 mg/dL <140 normal Not Available [facility] [address] [facility] [facility] [address], [place], [address], 02/23/2022 11:51:38 02/28/20 22 02/27/2022 US, obste tric, follo w-up No observ ation record ed. [email or web address] [address], [place], [address], 02/27/2022 17:29:40 03/27/20 22 03/27/2022 US, obste tric, follo w-up No observ ation record ed. [email or web address] [address], [place], [address], 03/27/2022 16:22:14 Result Notes None recorded. Problems Name Problem SNOMED Code Status Onset Date Resolution Date Notes Provider Name and Address Organization Details Recorded Time 88330441 Active 2021 Grisel Moreno (TERMED) null, [place] [facility] [employer] 12:32:34 Oppositio nal defiant disorder 46038922 Active Not on meds Haley L. [place] null, [facility] 3 10:15:14 Posttraum atic stress disorder 34051145 Active Not on meds Haley L. Meaghan null, [facility] 3 10:15:14 Asthma 945896548 Active Inhaler Haley L. [place] null, [facility] 3 10:15:14 Vaginal delivery following previous section 193058535 Active #10=[facility] Home Haley L. [place] null, [facility] 3 10:15:14 Attention deficit hyperacti vity disorder 612754555 Active Not on meds Haley L. [place] null, [facility] 3 10:15:14 Past history of section 108401734 Active #8=Class ical, #9=Repea t Haley L. [place] null, [facility] 3 10:15:14 Oppositio nal defiant disorder 95939348 Completed Not on meds Haley L. Meaghan null, [facility] 3 10:15:14 Posttraum atic stress disorder 17854000 Completed Not on meds Haley L. Meaghan null, [facility] 3 10:15:14 Asthma 253748006 Completed Inhaler Haley L. Meaghan null, [facility] 3 10:15:14 Vaginal delivery following previous section 487999862 Completed #10=[facility] Home Haley L. Meaghan null, [facility] 3 10:15:14 Attention deficit hyperacti vity disorder 158024676 Completed Not on meds Haley L. [place] null, [facility] 3 10:15:14 Past history of section 123247141 Completed #8=Class ical, #9=Repea t Haley L. Meaghan null, [facility] 3 10:15:14 Problem Notes None recorded. Procedures Surgical History Date Name Laterality Status Provider Name and Address Organization Details Recorded Time 1 Date of Last Pap Smear completed Grisel Moreno (TERMED) [facility] 10/20/2021 10:23:28 0 section completed Grisel Moreno (TERMED) [facility] 10/20/2021 10:25:43 8 section completed Grisel Moreno (TERMED) [facility] 10/20/2021 10:25:30 Imaging Results Imaging Date Name Status LastModified by Organiz ation Details LastModified Time 02/27/2022 US, obstetric, follow-up completed [email or web address] [address], [place], [address], 02/27/2022 17:29:40 03/27/2022 US, obstetric, follow-up completed [email or web address] [address], [place], [address], 03/27/2022 16:22:14 Procedure Notes None recorded. Medical Equipment None Reported. Allergies Allergen ID Allergen Name Allergen Category Reaction Reaction Severity Criticality Documentation Date Start Date Code Code System Note Provider Name and Address Organization Details Recorded Time 276456 cephalexi n medicatio n Not available Not available Not available 10/20/2021 2231 RxNorm Grisel Moreno (TERMED) null, [place] - [place] [employer] MARKET[employer] SPECIALIST 2 10:21:58 384826 latex environme nt,medica tion Not available Not available Not available 10/20/2021 20761 91 RxNorm Grisel Moreno (TERMED) null, [place] [employer] MARKET[employer] SPECIALIST 2 10:22:15 Medications Name Sig Start Date [...] Updated DateTime 03/13/2022 160.02 cm 39.9 kg/m2 674440.2 8325 g 136 mm[Hg] 72 mm[Hg] Jolie Calvo CAMPAIGN MARKETING SPECIALIST 15:27:22 Date Recorded Body height Body mass index (BMI) Body weight Systolic blood pressure Diastolic blood pressure Provider Name and Address Organization Details Last Updated DateTime 03/27/2022 160.02 cm 41.1 kg/m2 005033.4 2984 g 120 mm[Hg] 66 mm[Hg] Jolie MANSFIELD CAMPAIGN MARKETING SPECIALIST 2 15:50:36 Date Recorded Body height Body mass index (BMI) Body weight Systolic blood pressure Diastolic blood pressure Provider Name and Address Organization Details Last Updated DateTime 04/14/2022 160.02 cm 42 kg/m2 227607.3 9169 g 146 mm[Hg] 92 mm[Hg] [facility] 3 16:52:18 Date Recorded Body height Systolic blood pressure Diastolic blood pressure Provider Name and Address Organization Details Last Updated DateTime 05/18/2022 160.02 cm 136 mm[Hg] 82 mm[Hg] Jolie Khoury [facility] CAMPAIGN MARKETING SPECIALIST 05/18/2022 14:31:12 Social History None recorded. Functional [...] Total 11 Immunizations Vaccine Type Date Status Note Provider Nam e and Address Organization Details Recorded Time Tdap 09/15/2009 completed Partha Holloway (TERMED) null, [place] [facility] [employer] 01/04/2022 13:28:58 Tdap 11/20/2016 completed aPrtha Holloway (TERMED) null, [place] - [facility] [employer] 01/04/2022 13:28:58 MMR 12/20/2011 completed Partha Holloway (TERMED) null, [place] [facility] [employer] 01/04/2022 13:28:58 Past Encounters Encounter ID Performer Location Encounter Start Date Encounter Closed Date Diagnosis/Indication Diagnosis SNOMED-CT Code Diagnosis ICD10 Code Diagnosis Note [id number] HEMAL CAMPBELL PA-C [id number] KARLENE Neri_AIXA E [address] 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 Posttrauma tic stress disorder 29453791 F43.10 Not on meds Attention deficit hyperactivity disorder 809725387 F90.9 Not on meds Opposition al defiant disorder 25917300 F91.3 Not on meds Asthma 556932876 J45.90 9 Albuterol Inhaler Vaginal de livery following previous section 572858682 O34.219 #10 was an accidental at home [id number] Nicolas Dobbins MD [id number] KARLENE ELIAS E [address] [facility] [place] [address] 10/20/2021 09:30:44 10/20/2021 10:18:07 Routine care 946526790 Z34.91 [id number] Lars Enamorado MD [id number]_NJY KARLENE PINEDA Y [address] [place], [place] [address] [address] 11/28/2021 15:27:47 11/28/2021 18:35:33 Gestation period, 12 weeks 66157331 Z3A.12 Normal pre gnancy in multigravida 3050011885 81847 Z34.81 Past pregn lori history of section 506581476 Z98.890 Posttrauma tic stress disorder 77924047 F43.10 Attention deficit hyperactivity disorder 247672527 F90.9 Opposition al defiant disorder 87326600 F91.3 Asthma 521636935 J45.90 9 Vaginal de livery following previous section 732715081 O34.219 screening 2437 50403 Z36.0 [id number] Lars Enamorado MD LE186_JDK KARLENE PINEDA Y [address] [place], [place] [address] [address] 01/06/2022 13:31:13 01/06/2022 15:01:30 Routine care 080481835 Z34.82 Gestation period, 20 weeks 00853676 Z3A.20 Past pregn lori history of section 029104574 Z98.276 [id number] Lars Enamorado MD NL571_SFU KARLENE EDWIN Y [address] [place] [address] [address] 01/06/2022 13:30:51 01/06/2022 14:35:19 screening for malformation 550549656 Z3A.20 [id number] Lars Enamorado MD [id number]_KQH KARLENE EDWIN Y [address] [place], [place] [address]DANI[address] [address] 02/03/2022 15:47:04 02/03/2022 18:01:21 Routine care 486872456 Z34.82 Past pregn lori history of section 562710820 Z98.890 Gestation period, 24 weeks 676965060 Z3A.24 [id number] Lars Enamorado MD [id number]_TMV KARLENE EDWIN Y [address] [place] [address] [address] 02/27/2022 14:34:23 03/06/2022 15:14:02 Routine care 182347495 Z34.82 Past pregn lori history of section 644794825 Z98.890 Gestation period, 28 weeks 37505799 Z3A.28 [id number] MD JADE Gerard003_MET KARLENE EDWIN Y [address] [place] [address] [address] 02/27/2022 14:24:41 02/27/2022 14:26:38 Large for gestation age fetus 213837608 Z3A.28 [id number] Lars Enamorado MD [id number]_ZIS KARLENE EDWIN Y [address] [place] [address] [address] 03/13/2022 15:10:54 03/14/2022 09:10:42 Routine care 779687229 Z34.82 Past pregn lori history of section 705954095 Z98.890 Gestation period, 30 weeks 58629491 Z3A.30 [id number] MD JADE Gerard003_MET KARLENE IVELISSEJOÃO Y [address] [place] [address] [address] 03/27/2022 14:53:09 03/27/2022 15:27:14 Low lying placenta 315326124 Z3A.31 [id number] Lars Enamorado MD [id number]_KWH KARLENE SMasoudWOODJOÃ[place] [address] 03/27/2022 14:57:56 03/27/2022 16:56:05 Past history of section 509258927 Z98.890 Gestation period, 32 weeks 8233535 Z3A.32 Low lying placenta 23815 2007 Z3A.31 [id number] Lars Enamorado MD AN785_MWM ALBINOARTYUNIOR S_WOODJOÃO Y DESTINEY STANTONI ELVIS [address] [place] [address] 04/14/2022 15:28:29 04/17/2022 12:49:26 Routine care 759511443 Z34.82 Gestation period, 34 weeks 79332556 Z3A.34 Past pregn lori history of section 714902959 Z98.290 [id number] Lars Enamorado MD AV938_IOR MRACNER S_WOODJOÃO Y [facility] ELVIS [address] [place] [address] 05/18/2022 13:49:20 05/23/2022 09:48:14 Postoperative visit 251628262 Z09 Health Concerns Section Related Observation LastModified by Organization Detai ls LastModified Time None Recorded Concern Status LastModified by Organization Details LastModified Time None Recorded Advance Directives Directive None Recorded Payers Encounter Date Sequence Insurance Name Policy Number Policy Palacios Covered Member ID Palacios Member ID Guarantor Name 03/13/2022 1 [place] MNDBBS Charissa Jernigan Jean Claude [id number] Charissa Jernigan Jean Claude 03/27/2022 1 [place]ND[place]BS Charissa Jernigan Jean Claude [id number] Charissa Jernigan Jean Claude 03/27/2022 1 [place] MNMICKEYBS Charissa Jernigan Jean Claude [id number] Charissa Jernigan Jean Claude 04/14/2022 1 [place]ND[place] Charissa Silverio [id number] Charissa Silverio 05/18/2022 1 [place]ND[place] Charissa Silverio [id number] Charissa Silverio Notes Date Note Type [...] unusual complaints reports:}} [place] [address] [address] [facility],[address], [place], [address], [place] [employer] 05/23/2022 08:08:00 OBGyn Episode Ob Episode Information Episode Created Date Number of Fetuses Patient Bloodtype Patient rh Status Prepregnancy Weight lbs Domestic Partner Domestic Partner Phone Father Name Warehouse Worker 2Nd Shift Status 10/21/19 22 1 A Positive Arturo Arturo CLOSED Fetus Data First Name Last Name Admitted to NICU Weight (g) Sex Living Outcome Pediatric Complications Fetus ID Race Codes Race Delivery Type M true Full Term [id number] Problems Problem Notes Parrijay/Gilmar's/FOB: KyleEDD: 05/21/2022 by LMP -- (c/w 10wk US)- 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) & Repeat (Preg #9=Repeat)- Hx of Accidental (Preg #10=at home)- PTSD/ADHD/ODD: Not on meds- Asthma: Inhaler- Hx of Low [place] (Preg #5)- UTI @ 9wks: Macrobid Problem Name Start Date End Date Resolution Snomed Code Not e Oppositional defiant disorder 64786869 Not on meds Posttraumatic stress disorder 10705648 Not on meds Asthma 833331080 Inhaler Vaginal delivery following previous section 088584720 #10=Acciden reyna @ Home Attention deficit hyperactivity disorder 074840612 Not o n meds Past history of section 581130760 #8=Class ical, #9=Repeat Oliverio Calculation Initial Oliverio [...] Date Ultra Sound Latest Days Gestation 0 [email or web address] 10/25/2021 05/21/19 23 0 Pre- Flowsheet Flowsheet Date 10/20/2021 Laura Score Blood Edema Fundus Height Fundus Units Glucose Ketones Leukocytes Nitrite Labor Signs Protein Cervic Dilation Cervic Effacement Cervic Station Type Weight in lbs Pre/Post Dialysis Refused BP Diastolic BP Location Tested BP Systolic BP Type Fetus Heart Rate Present Fetus Movement Comments Flowsheet Date 10/20/2021 Laura Score Blood Edema Fundus Height Fundus Units Glucose Ketones Leukocytes Nitrite Labor Signs Protein Cervic Dilation Cervic Effacement Cervic Station none none Type Weight in lbs Pre/Post Dialysis Refused Weight 163.201148988008 BP Diastolic BP Location Tested BP Systolic [...] 3wks. All questions answered. Flowsheet Date 11/28/2021 Laura Score Blood Edema Fundus Height Fundus Units Glucose Ketones Leukocytes Nitrite Labor Signs Protein Cervic Dilation Cervic Effacement Cervic Station Type Weight in lbs Pre/Post Dialysis Refused Weight 174.07618191992 BP Diastolic BP Location Tested BP Systolic BP Type 84 132 sitting Fetus Heart Rate Present A Present Fetus Movement A Yes Comments See HPI. Flowsheet Date 01/06/2022 Laura Score Blood Edema Fundus Height Fundus Units Glucose Ketones Leukocytes Nitrite Labor Signs Protein Cervic Dilation Cervic Effacement Cervic Station Type Weight in lbs Pre/Post Dialysis Refused BP Diastolic BP Location Tested BP Systolic BP Type Fetus Heart Rate Present Fetus Movement Comments Flowsheet Date 01/06/2022 Laura Score Blood Edema Fundus Height Fundus Units Glucose Ketones Leukocytes Nitrite Labor Signs Protein Cervic Dilation Cervic Effacement Cervic Station Type Weight in lbs Pre/Post Dialysis Refused Weight 198.021893461753 BP Diastolic BP Location Tested BP Systolic BP Type 60 110 Fetus Heart Rate Present Fetus Movement A Yes Comments Doing well. FAS today, discu ssed low lying placenta, repeat US @ 28wks, pelvic rest until then. Undecided on baby names. 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 Work note given. Insomnia, I recommend Magnesium gummies, Unisom or Tylenol PM. Reports cramping inner thigh, remedies reviewed. Routine care. FU 1mo. Flowsheet Date 02/03/2022 Laura Score Blood Edema Fundus Height Fundus Units Glucose Ketones Leukocytes Nitrite Labor Signs Protein Cervic Dilation Cervic Effacement Cervic Station Type Weight in lbs Pre/Post Dialysis Refused Weight 213.372908294953 BP Diastolic BP Location Tested BP Systolic [...] Effacement Cervic Station Type Weight in lbs Pre/Post Dialysis Refused BP Diastolic BP Location Tested BP Systolic BP Type Fetus Heart Rate Present Fetus Movement Comments Flowsheet Date 02/27/2022 Laura Score Blood Edema Fundus Height Fundus Units Glucose Ketones Leukocytes Nitrite Labor Signs Protein Cervic Dilation Cervic Effacement Cervic Station Type Weight in lbs Pre/Post Dialysis Refused Weight 222.51852670245 BP Diastolic BP Location Tested BP Systolic [...] Effacement Cervic Station Type Weight in lbs Pre/Post Dialysis Refused Weight 225.857988374793 BP Diastolic BP Location Tested BP Systolic [...] Effacement Cervic Station Type Weight in lbs Pre/Post Dialysis Refused Weight 232.28153595295 BP Diastolic BP Location Tested BP Systolic [...] Effacement Cervic Station Type Weight in lbs Pre/Post Dialysis Refused Weight 237.458864763521 BP Diastolic BP Location Tested BP Systolic [...] Disease false Other Infection History false Thalassemia (Polish, Croatian, Mediterranean, Or Background): MCV < 80 false [...] false History of HIV false Darrel-Sachs (eg, Congregational, Cajun , Nigerien-Filipino) false History Of STD, Gonorrhea, C hlamydia, HPV, Syphilis false History of Hepatitis false Prior GBS-infected child false Neural Tube Defect (Meningom yelocele, Spina Bifida, Or Anencephaly) false Previous Carrier Screening Test false Hemophilia Or Other Blood Disorders false Lowell's Chorea false If Yes, Was Person Tested [...] Complications Tubal Sterilization Discharge Date Comments 3 [facility]- inal 38 Michelle Lam MD Discharge Information Feeding Method Contraceptive Method Maternal HG B and HCT Levels
--- OUTSIDE RECORDS SUMMARY | 2024-08-12 10:06 | XMS_ITS | Clinical Summary ---
Author Organization [facility] Address [address] [place] [address] Care Team Providers Care Radio Adjuster Name Role Phone Md FAMILIA Cueva Primary Care Provider [phone] Source Comments You are receiving this document as you are listed as the primary care provider,follow-up provider, or the patient has been referred to you for consultation.This is in compliance with the Medicare andMedicaid EHR Incentive Program,which states Providers who transition their patient to another setting of careor provider of care or refers their patient to another provider of care shouldprovide summary care record for each transition of care or referral. [facility] Allergies Active Allergy Reactions Criticality Noted Date Comments Cephalexin Angioedema High 07/16/2016 Latex Hives 10/04/2010 Spermaceti Wax 02/13/2011 PN: allergic to spermacides Medications Vit-Fe Fumarate-FA ( OR)Indications: Fall down stairs,Right wrist sprain,Left ankle sprain,Sprain of left foot Take 1 tablet by mouth daily (every 24 hours). 07/01/2011 Active atomoxetine (STRATTERA) 40 MG capsule Take 40 mg by mouth daily. 0 01/27/2019 Active amphetamine-dex troamphetamine (ADDERALL XR) 20 MG 24 hour release [...] (ATIVAN) 0.5 MG sublingual tablet 01/10/2021 Active Vrvrszbk-Tgs-Jr -FA ( 1 + IRON OR) Take 1 [...] MORNING WITH A 10MG CAPSULE 04/07/2021 Active amphetamine-dex troamphetamine (ADDERALL) 20 MG tablet TAKE ONE-HALF TABLET BY MOUTH IN THE MORNING, AT NOON AND 1 AT 4 PM 03/18/2021 Active Norethindrone, Contraceptive, (EDGAR) 0.35 MG tablet Take 1 Tablet by mouth daily. 84 Tablet 3 04/19/2021 Active Active Problems Problem Noted Date Diagnosed Date ADHD (attention deficit hyperactivity disorder) 04/21/2021 Overview (04/21/2021): Diagnosed by psychiatry, [facility], in 2007 History of delivery, [...] Onset: 08/2009 ; Labor >22 <37Weeks Immunizations Immunization Administration Dates Next Due 4vHPV (Gardasil) 05/02/2007,07/17/2006, [...] Last EPDS Self Harm Result 0-->never 10/10 Comments No Sex and Gender Information Value Date Recorded Sex Assigned at Not on file Legal Sex Female 2:34 AM CDT Gender Identity Not on file Sexual Orientation Not on file 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 Not on file Not on edgar e Last Filed Vital Signs Vital Sign Reading Time Taken Comments Blood Pressure 126/67 04/19/2021 1:34 PM CHARGING OPERATOR Pulse 97 04/19/2021 1:34 PM CHARGING OPERATOR Temperature 36.6 C (97.9 F) 07/01/2011 4:09 PM CDT Respiratory Rate 16 07/01/2011 4:09 PM CDT Oxygen Saturation 98% 03/27/2011 2:24 PM CHARGING OPERATOR Inhaled Oxygen Concentration - - Weight 74.8 kg (165 lb) 04/19/2021 1:34 PM CHARGING OPERATOR Height 160 cm (5' 3) 12/06/2010 10:53 AM CDT Body Mass Index - - Plan of Treatment Health Maintenance Due Date Last Done Comments Cervical Cancer Screening Due 1992 Hep C Screening (Preventive Services) 1992 Asthma ACT (score of 20 or higher) 1996 Adult Preventive Visit 2010 Pneumococcal Vaccine (1 of 2 - PCV) 2011 COVID-19 Vaccine ( - season) 2023 Influenza Vaccine (Season Ended) 2024 DTaP/Tdap/Td Vaccine (10 - Tdap) 11/20/2026 11/20/2016, 06/01/2015, 09/15/2009, Additional history exists Zoster/Shingles Vaccine (1 of 2) 2042 HepB Vaccine Completed 08/22/1994, 05/11, 1992 Hib Vaccine Completed 08/22/1994, 02/09, 1992, Additional history exists IPV (Polio) Vaccine Completed 06/08/1997, 03/08/1993, 1992, Additional history exists HepA Vaccine Completed 11/10/2003, 10/08, 04/28/1999 MCV4 Vaccine Aged Out 04/19/2006 No longer eligi ble based on patient's age to complete this topic HPV Vaccine Completed 05/02/2007, 07/08, 04/19/2006 HIV Screening (Preventive Services) Completed 04/10/2021, 03/11/2010 Meningococcal B Vaccine Aged Out No l onger eligible based on patient's age to complete this topic Procedures Procedure Name Priority Date/Time Associated Diagnosis Comments HIV ANTIBODY Routine 03/11/2010 3:33 PM CHARGING OPERATOR from Last 3 Months or Most Recently Relevant to Health Maintenance Results * HIV ANTIBODY (03/11/2010 3:33 PM CHARGING OPERATOR) HIV 1/HIV 2 Non-React No normal range HP CONVERSION 03/11/2010 3:33 PM CHARGING OPERATOR us Daksha Moreira BURGLAR ALARM INSTALLER, FIELD SAMPLING TECHNICIAN LAB_1 Final Result HP CONVERSION from Last 3 Months or Most Recently Relevant to Health Maintenance Care Teams Radio Adjuster Relationship Specialty Start Date End Date [place] [address] PCP - General 07/12/10
--- OUTSIDE RECORDS SUMMARY | 2024-08-12 10:07 | XMS_ITS | Clinical Summary ---
Author Organization [facility] Address [address] [place] [address] Care Team Providers Care Gaming Department Head Name Role Phone Lucretia, Md Primary Care [...] (GISEL-2) 1993 Depression Assessment (PHQ-2) 1993 Pneumococcal Vaccine (1 of 2 - PCV) 2011 COVID-19 Vaccine ( - 2023-2 5 season) 2023 Influenza Vaccine (Season Ended) 2024 Adult Tetanus Booster 11/20/2026 11/20/2016 , 06/01/2015, 09/15/2009, Additional history exists RSV Vaccines (1 - 1-dose 75+ series) 2067 Care Teams Gaming Department Head Relationship Specialty Start Date End Date None, PCP - General 09/24/18 None, PCP - Primary Care Clinic 09/24/18
--- NOTE | 2024-08-12 10:28 | PC.NURSE ---
Supplies for 1 week of dressing changes provided to patient per Dr. Corona request. Patient has F/U scheduled with them.
--- NOTE | 2024-08-12 10:31 | PM.GYNCN1 ---
CARD CHECKER - CN: HPI Data of Consult Time Seen by Provider: 10:15 Date Seen: 08/12/24 Patient: [facility] Patient Consult date: 08/12/24 Primary Care Provider: Not a Local Provider Consult Narrative Narrative: Charissa Silverio is a 34 year old female s/p hysterectomy for placenta accreta at [facility] on July 21. Her hysterectomy was complicated by wound infection on August 04 that required a washout. She had cynthia placed at that time and those cynthia were removed yesterday. When got into the car, she noted that a portion of her vertical incision was open. Reports drainage and bleeding from the wound. Charissa presented to the ED to have it sutured up because there's no way I'm letting it heal by secondary intention. Apparently she was told that it was the plan to have the rest heal by secondary intention. Charissa expressed a lot of frustration and dissatisfaction with her care at [facility]. Reports that everyone had ulterior motives and poor communication. She is upset that her baby was transferred to the NICU in [place] to be closer to her home but then she ended up needing a lot of care in [place]. She is currently on Augmentin for her wound infection. I was asked to examine her wound. Physical exam: General: No acute distress Psych: Alert and oriented x3, full affect HEENT: Normocephalic, atraumatic Lungs: Unlabored breathing Neuro: No focal deficit. Mentating appropriately Pelvic exam: Deferred INCISION: There is an open area in the middle 3rd of her vertical infraumbilical incision measuring approximately 7 cm. It does gape open approximately 8 mm and less than a half cm deep. Appropriately tender to palpation. Minimal drainage. No bleeding. Minimal erythema around that area. Mild induration in that area as well. Superior and inferior 3rd of the area is clean, dry and intact without tenderness, erythema, induration, or drainage. Plan: - Discussed with patient that in generally, I don't recommend closure of a previously infected wound. Additionally, given the induration around the area, there is too much tension to completely close the defect any way. Reassuringly, the defect is not very deep at all and I anticipate that it will heal well with secondary intention. - recommend q.12 hours wet to dry dressing - I dressed the wound for the patient and provided teaching. Placed iodoform at the base of the wound. Then placed a small amount of damp Kerlix on top, followed by a dry 4x4 guaze fold in half. Finally, ABD was applied in a nonocclusive manner with paper tape. - Patient given supplies for wet to dry dressing changes. She feels comfortable doing these wound changes herself as the wound is easily visible and superficial. - Recommend completion of her Augmentin course. Precautions for worsening infection given. - She has a f/u with Dr. Clark on 08/18/24 cc:: CC: [facility] Medical History delivery ?O60.10X0 - labor with delivery, unspecified trimester, not applicable or unspecified (ICD-10) Surgical History History of appendectomy ?Z90.49 - Acquired absence of other specified parts of digestive tract (ICD-10) S/P section ?Z98.891 - History of uterine scar from previous surgery (ICD-10) Meds Home Medications and Allergies Home Medications ?Medication ?Instructions ?Recorded ?Confirmed ?Type docosahexaenoic acid 200 mg mg PO 01/29/24 05/23/24 History capsule ( DHA) ibuprofen 200 mg tablet 200 mg PO Q6H PRN 01/29/24 05/23/24 History acetaminophen 325 mg tablet PO 08/12/24 History amoxicillin 875 mg-potassium 1 tab PO BID 08/12/24 08/12/24 History clavulanate 125 mg tablet cyclobenzaprine 10 mg tablet 10 mg PO 3XD 08/12/24 08/12/24 History dextroamphetamine-amphetamine 20 1 tab PO 3XD 08/12/24 08/12/24 History mg tablet fluconazole 150 mg tablet 150 mg PO Q3D 08/12/24 08/12/24 History fluticasone furoate 200 1 inh inhalation DAILY 08/12/24 08/12/24 History mcg/actuation blister powder for inhalation (Arnuity Ellipta) gabapentin 400 mg capsule 400 mg PO TID 08/12/24 08/12/24 History hydrochlorothiazide 25 mg tablet 25 mg PO DAILY 08/12/24 08/12/24 History hydroxyzine HCl 50 mg tablet PO 08/12/24 History lorazepam 2 mg tablet 2 mg PO BID-TID PRN 08/12/24 08/12/24 History lysine 500 mg tablet (L-Lysine) 500 mg PO DAILY 08/12/24 08/12/24 History magnesium oxide 200 mg PO DAILY 08/12/24 08/12/24 History metoclopramide HCl 5 mg tablet 5 mg PO DAILY 08/12/24 08/12/24 History nifedipine 30 mg tablet,extended 30 mg PO DAILY 08/12/24 08/12/24 History release nifedipine 30 mg tablet,extended 60 mg PO HS 08/12/24 08/12/24 History release sennosides 8.6 mg-docusate sodium 1 tab PO DAILY 08/12/24 08/12/24 History 50 mg tablet (Stimulant Laxative Plus) Allergies Allergy/AdvReac Type Severity Reaction Status Date / Time cephalexin (From Keflex) Allergy Intermediate Verified 08/12/24 09:22 latex Allergy Mild Verified 08/12/24 09:22 CARD CHECKER - Exam Physical Exam: Vital signs: Temp Pulse Resp BP Pulse Ox O2 Del Method 97.7 F 71 16 116/66 98 Room Air 08/12/24 09:23 08/12/24 09:23 08/12/24 09:23 08/12/24 09:23 08/12/24 09:23 08/12/24 09:23
== END 2024-08-12 10:39 | disposition home or self-care (01) ==
PROVIDERS: Emergency Provider Family Medicine
DX: O90.1 Disruption of perineal obstetric wound (principal)
CPT/HCPCS: 99282; 99283; 99284

== ENCOUNTER 2024-09-22 15:12 | Outpatient (CLI) | payer BC, SELFPAY ==
[2024-09-22 17:18] LABS: Bacterial Vaginosis* Negative (Negative); Candida glab/krus NOT DETECTED (No Detected); Candida species NOT DETECTED (No Detected); Trichomonas vaginalis NOT DETECTED (No Detected)
== END 2024-09-22 15:13 | disposition home or self-care (01) ==
LOC: NFLDREF 15:13
PROVIDERS: PCP Family Medicine; Visit Provider Obstetrics & Gynecology
DX: R30.9 Painful micturition, unspecified (principal); N94.89 Other specified conditions associated with female genital organs and menstrual cycle
CPT/HCPCS: 81513; 87086; 87481; 87661

== ENCOUNTER 2024-12-15 10:21 | Emergency (ER) | payer BC, SELFPAY ==
--- OUTSIDE RECORDS SUMMARY | 2024-12-15 10:23 | XMS_ITS | Clinical Summary ---
Author Organization [employer] [facility] [employer] [facility] Address [address] [place] [id number] Care Team Providers Care After School Caregiver Name Role Phone Pcp, No Primary Care [...] manic episode 022 Overview (08/16/2021): Created by [facility] Annotation: Jul 07 2011 3:48PM - Suha Dyer: Stopped meds 2008 Replacement Utility updated for latest IMO load De Quervain's tenosynovitis 08/16/2021 Overview (08/16/2021): Created by [facility] [facility] 08/16/2021 Overview (08/16/2021): Created by Conversion [...] was able to move with her to [place] and a 5-bedroom 3-bathroom house and was [...] - 37w0d given history of prior classical. [facility] did not give specific recommendations regarding this, but since her trimester US, will plan repeat section on 02/02/2020 at 38+0 weeks, since 37+6 weeks is on a Sunday. Plan delivery in [place]. Encounter for immunization 01/01/2020 Overview (08/16/2021): Rubella [...] the 67%ile with EFW of 2543 gm. [facility] recommended follow up US in 2-3 weeks for growth based upon dating in the 3rd trimester. This was ordered today. Personal history of contraception 12/29/2019 Overview (08/16/2021): 12/28 EK: patient reports prior conception (7th ) while an IUD was in place. 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 She is considering the NuvaRing for contraception [...] hyperactivity disorder) Overview (05/04/2017): Diagnosed by psychiatry, [facility], in 2007 Estimated Date of Delivery Comme [...] Supervision of high-risk 10/03/2017 03/18/2018 Overview (01/17/2018): [facility] OB PATIENT [facility] PATIENT : Jacob It's a Boy! NEXT [...] defect. REFERRING PHYSICIAN/PHONE/LAST UPDATE: Dr Teresa Childress [phone] Primary MD approves scheduling of recommended ultrasounds/testing. SPECIALISTS/CONSULTS: Neonatology 01/10/18 Pediatric Surgery: 11/26 Dr. Hitchcock [facility] Tour ALVAREZ signed for [facility]: Signed 10/29/17 CARE COORDINATION: Johana Vieira RN/Marva Lai, RN/Trisha Tobar RN/Lea Khan RN [phone] [facility] CUTTER PLASMA ARC: DIAMOND Guillory CERTIFIED CORPORATE TRAVEL EXECUTIVE: Pager: [phone] GENETICS: Beto Enciso done 10/08/17-low risk PROCEDURES: 12/18 MRI [facility] 09/11/17 Maternal abd U/S 1. No shadowing [...] assistance? YES CHECKLIST FOR SCHEDULING PROCEDURES: Call [phone] for [place] and [phone] for [place] ([facility] cerclages Day Surgery [id number]) Procedure: C/ Hospital: [place] Unit: L&D Date & Time of procedure: 01/21/18 at 1400pm Laura Score if induction: N/A Pertinent information: Omphalocele containing liver, bowel and stomach Gestational age on procedure date? 37w0d MD doing procedure: Dr. Douglas Date scheduled: 01/10/18 when pt was 35w3d; Rescheduled 01/17/18 Scheduling MD & RN: Dr Boggs/NORBERT Covington Notifications: Hospitalist Delivery-OBH accreditation coordinator notified through [employer] inbox? Yes [facility] MD accreditation coordinator notified via [employer] inbox? Yes Primary MD notified via [employer] inbox? No Primary MD clinic called if not Navarikbertha? No On [facility] calendar? Yes Care Coordination notified? Yes H&P/PPTL: PPTL permit signed? Not Applicable H&P and Plan in chart? No [facility] appointment made for H&P with HISTORY CARD CLERK within 7 days of surgical procedure? Yes Date: 01/17/18 with MD Patient notification: Patient notified of procedure date? Yes Written admission instructions given to patient via AVS? Given 01/10/18 PLAN OF CARE: 01/10/18 per SS -Continue with routine care through [facility]. -Continue weekly testing -Plan for delivery [...] on file Legal Sex Female 7:53 AM X RAY TECHNICIAN Gender Identity Not on file Sexual Orientation [...] g 9 9 Jacob arreguin Complications:None Delivery Location:[facility] Comments:Teen Pregnanc y 2010 [...] 8 PELTI ER,BG IVORY jaramillo Complications:None Delivery Location:[facility] 2017 Term 37w 0d 0h 02m 2.4 kg (5 lb 4.7 oz) M CS-Cla ssical Spinal Livin g 8 8 PELTI ER,BB IVORY Menezes r/Ahr ens Complications:None,Known fet al anomaly, antepartum (HC) Delivery Location:[id number] [place]) Comments:baby with omp alocele, IUGR, VSD 2018 SAB 9w0 d 2019 Term 37w 3d 3.29 kg (7 lb 4 oz) M CS-LTr anv Spinal Livin g Delivery Location:[facility] 2021 Para 0h 10m 0h 10m 2.47 kg (5 lb 7.1 oz) F None Livin g PELTI ER,BG IVORY Beltran let, Tana best Mansf ield, DO Complications:Precipitous la bor (< 3 hours) Delivery Location:Hospital ( [facility]) Current Comments Last was a C-Secti on and did a T-Cut on uterus causing baby to have organs born on the outside of body. Rea Gonzalez [facility] 05/22/2018 1:01 PM No other issues/no episiotomy. Rea Gonzalez [facility] 05/22/2018 1:02 PM Last Filed Vital Signs Vital Sign Reading Time Taken Comments Blood Pressure 114/59 04/08/2024 8:52 AM X RAY TECHNICIAN Pulse 97 04/08/2024 8:52 AM X RAY TECHNICIAN Temperature 36.5 C (97.7 F) 04/08/2024 8:52 AM X RAY TECHNICIAN Respiratory Rate 20 04/08/2024 8:52 AM X RAY TECHNICIAN Oxygen Saturation 99% 04/08/2024 8:52 AM X RAY TECHNICIAN Inhaled Oxygen Concentration - - Weight 96.2 kg (212 lb) 04/08/2024 8:52 AM X RAY TECHNICIAN Height 160 cm (5' 3) 04/30/2023 4:38 PM X RAY TECHNICIAN Body Mass Index 37.55 04/30/2023 4:38 PM X RAY TECHNICIAN Plan of Treatment Health Maintenance Due Date Last Done Comments Pap test for age 21-65 06/23/2019 06/22/2016 BMI (ht and wt on same day) for age 18+ 01/17/2020 01/16/2019, 01/08/2019, 07/31/2018, Additional history exists Depression screening for age 12+ 01/18/2020 01/17/2019, 01/16/2019, 01/15/2019, Additional history exists COVID-19 vaccine series (2023- season) 2024 Influenza Vaccine (#1) 2024 Tetanus booster 11/20/2026 11/20/2016, 05/11, 09/15/2009, Additional history exists RSV vaccine for adults or (1 - 1-dose 75+ series) 2067 Hepatitis B series for 19+ Completed 08/22, 1992, 1992 HPV series for age 9-45 Completed 05/02/19 08, 07/17/2006, 04/19/2006 Hepatitis C screening for age 18-79 Completed 12/18/2016 HIV for age 15-65 Completed 04/10/2021, , 06/19/2016, Additional history exists Pneumococcal series for age 6-49 Aged Out No longer eligible based on patient's age to complete this topic Procedures Procedure Name Priority Date/Time Associated Diagnosis Comments ANTI HIV 1/2 Today 04/10/2021 10:19 PM X RAY TECHNICIAN ANTI HCV Routine 12/18/2016 3:58 PM CDT Grand multiparity with current , third trimester (HC) Supervision of other normal , antepartum (HC) COMPENSATION VICE PRESIDENT THIN PREP PAP SCREEN IMAGED Routine 06/22/2016 11:52 AM CDT Screening for malignant neoplasm of cervix from Last 3 Months or Most Recently Relevant to Health Maintenance Results * ANTI HIV 1/2 (04/10/2021 10:19 PM X RAY TECHNICIAN) HIV-1/HIV-2 ANTIBODY Non-Reacti ve Non-Reacti ve 04/11/2021 3:06 PM X RAY TECHNICIAN [facility] Comment:HIV-1 p24 and HIV-1/ HIV-2 Ab not detected. Blood BLOOD SPECIMEN / Unknown Venipuncture / Unknown 04/10/2021 10:19 PM X RAY TECHNICIAN 04/10/2021 10:28 PM X RAY TECHNICIAN us Marianne Fairbanks DO SEND OUTS Fin al Result [facility] [address] [place] [address], [place] * ANTI HCV (12/18/2016 3:58 PM CDT) HEPATITIS C ANTIBODY Non-Reacti ve Non-Reacti ve 12/18/2016 11:31 PM CDT [facility] Blood BLOOD SPECIMEN / Unknown Venipuncture / Unknown 12/18/2016 3:58 PM CDT 12/18/2016 3:58 PM CDT Narrative [facility] - 12/18/2016 11:31 PM CDT Antibodies to HCV not detected; does not exclude the possibility of exposure to HCV. Teresa Chaudhary MD SEND OUTS F inal Result [facility] [address] [place] [address], [place] * COMPENSATION VICE PRESIDENT THIN PREP PAP SCREEN IMAGED (06/22/2016 11:52 AM CDT) Case Report Gynecologic Cytology Report Case: [id number] Authorizing Provider: Ana Holliday DO Collected: 06/22/2016 1152 Ordering Location: [facility] Received: 06/22/2016 1152 [facility] First Screen: Jen Velazquez Specimen: COMPENSATION VICE PRESIDENT ThinPrep Vial Screening, Cervical 06/29/2016 2:14 PM CDT [facility] INTERPRETATION/ RESULT NEGATIVE FOR INTRAEPITHELIAL LESION OR MALIGNANCY (NIL) (none) 06/29/2016 2:14 PM CDT [facility] at 1414 CDT SPECIMEN ADEQUACY Satisfactory for evaluation Endocervical component present Obscuring Inflammation 06/29/2016 2:14 PM CDT [facility] HPV REQUEST HPV if ASCUS 06/29/2016 2:14 PM CDT [facility] Date of LMP 06/29/2016 2:14 PM CDT [facility] Last Pap Date 2015/ outside of [facility] 06/29/2016 2:14 PM CDT [facility] Last Pap Result NIL 7 2:14 PM CDT [facility] Abnormal Pap or [place] Bx in last 5 years No 06/29/2016 2:14 PM CDT [facility] Menstrual Status 06/29/2016 2:14 PM CDT [facility] [place] Bx Done Today No 06/29/2016 2:14 PM CDT [facility] Additional Information None given 06/29/2016 2:14 PM CDT [facility] Automated Review Successful 06/29/2016 2:14 PM CDT [facility] Comment:Specimen processed s uccessfully by automated information services manager device, [employer] System, [employer] Note The pap test is a screening technique, not a diagnostic procedure. It is used primarily to screen for squamous cancers and precursor lesions. Published studies have shown that it is subject to both false negative and false positive results. The pap test should not be used as the sole means to diagnose or exclude pre-malignant and malignant lesions. Interpreted at [facility] ([facility], [facility], [facility], [facility], [facility], [facility], [facility]) 06/29/2016 2:14 PM CDT [facility] Other (Cervical) 06/22/2016 11:52 AM CDT 06/22/2016 11:52 AM CDT us Ana Holliday DO PATHOLOGY/CYTOLOGY Final R esult [facility] [address] [place] [address], [place] from Last 3 Months or Most Recently Relevant to Health Maintenance Insurance [facility] Advance Directives * Full Code (Latest Code [...] 10:52 PM 01/12/2017 1:06 AM Care Teams After School Caregiver Relationship Specialty Start Date End Date Pcp, No . PCP - General 04/30/23
--- OUTSIDE RECORDS SUMMARY | 2024-12-15 10:23 | XMS_ITS | Clinical Summary ---
Author Organization [facility] Address [address] [place] [address] Care Team Providers Care Tobacco Stripping Machine Operator Name Role Phone Md FAMILIA Cueva Primary Care Provider [phone] Source Comments You are receiving this document as you are listed as the primary care provider,follow-up provider, or the patient has been referred to you for consultation.This is in compliance with the Medicare and[facility] Hospitalca[facility] EHR Incentive Program,which states Providers who transition their patient to another setting of careor provider of care or refers their patient to another provider of care shouldprovide summary care record for each transition of care or referral. 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 Not on file Not on file Not on edgar e Last Filed Vital Signs Vital Sign Reading Time Taken Comments Blood Pressure 126/67 04/19/2021 1:34 PM RETAIL AREA MANAGER Pulse 97 04/19/2021 1:34 PM RETAIL AREA MANAGER Temperature 36.6 C (97.9 F) 07/01/2011 4:09 PM CDT Respiratory Rate 16 07/01/2011 4:09 PM CDT Oxygen Saturation 98% 03/27/2011 2:24 PM RETAIL AREA MANAGER Inhaled Oxygen Concentration - - Weight 74.8 kg (165 lb) 04/19/2021 1:34 PM RETAIL AREA MANAGER Height 160 cm (5' 3) 12/06/2010 10:53 AM CDT Body Mass Index - - Plan of Treatment Health Maintenance Due Date Last Done Comments Cervical Cancer Screening Due 1992 Hep C Screening (Preventive Services) 1992 Asthma ACT (score of 20 or higher) 1996 Adult Preventive Visit 2010 Pneumococcal Vaccine (1 of 2 - PCV) 2011 COVID-19 Vaccine (1 - season) 2024 Influenza Vaccine (#1) 2025 DTaP/Tdap/Td Vaccine (10 - Tdap) 11/20/2026 11/20/2016, [...] Comments HIV ANTIBODY Routine 03/11/2010 3:33 PM RETAIL AREA MANAGER from Last 3 Months or Most Recently Relevant to Health Maintenance Results * HIV ANTIBODY (03/11/2010 3:33 PM RETAIL AREA MANAGER) HIV 1/HIV 2 Non-React No normal range HP CONVERSION 03/11/2010 3:3 3 PM RETAIL AREA MANAGER us Daksha Moreira CREDIT PROCESSOR, RELEASE COORDINATOR LAB_1 Final Result HP CONVERSION from Last 3 Months or Most Recently Relevant to Health Maintenance Care Teams Tobacco Stripping Machine Operator Relationship Specialty Start Date [place] [address] PCP - General 07/12/10
--- OUTSIDE RECORDS SUMMARY | 2024-12-15 10:23 | XMS_ITS | Clinical Summary ---
Author Organization [facility] Address [address] [place] [address] Care Team Providers Care Bailing Machine Operator Name Role Phone None Reported, Pcp Primary Care Provider Unavail able Source Comments Patient records contain information from all sites at [facility]. For routine questions regarding patient records, call [phone] during business hours, M-F 8:00 AM - 5:00 PM Central Time. Record requests for emergency care only can be directed to [phone] at any time.[facility] Allergies Active Allergy Reactions Criticality Noted Date Comments Cephalexin Anaphylaxis,Swelling High 07/16/2016 Latex Anaphylaxis,Angioede ma (Reselect Reaction),Hives (Reselect Reaction) High 02/16/2012 Medications * This document contains information received from the source organization and may not represent a complete record from that organization. LORazepam (ATIVAN) 2 mg tablet Take 2 mg by mouth 3 (three) times a day as needed for anxiety. Active lojnplt-Li-ypsv- FA 27 mg iron- 1 mg tablet [...] for pain. 100 tablet 4 3:24 PM INTRAMURAL DIRECTOR 05/21/19 24 Active fluticasone furoate (ARNUITY ELLIPTA) [...] the floor. She received her care at [facility]. Section Delivery 05/18/2023 Overview (05/18/2023): Charissa [...] kg. Jean Claude, Boy A One Charissa [[id number]] 1.58 kg Jean Claude, Girl B Two Charissa [[phone]] 1.36 kg . Gestational age: 30w1d. occurred: Contraceptive methods administered during the delivery: None Both mother was in stable condition at the conclusion of the procedure. Neonates were handed off to the Dheeraj team. When the patient met appropriate criteria, she was transferred to the floor. She received her care at [facility]. Maternal Care For Vertical S car From Previous Delivery 01/09/2020 Overview (03/29/2023): Previous classical section. Recommend delivery around 36 weeks at latest. Need Vaccine Immunization Measles Mumps And Rube lla 01/01/2020 Overview (01/01/2020): Rubella equivocal - MMR in period Family History Of Other Mihcael enital Malformations Deformations And Chromosomal Abnormalities 02/27/2019 Overview (01/08/2020): Last child had omphalocele and VSD. Level II US returned normal. Assessment & Plan (03/17/2019 3:34 PM INTRAMURAL DIRECTOR): Plan MFM consult and Level II US. Assessment & Plan (03/04/2019 1:51 PM INTRAMURAL DIRECTOR): Will offer maternal serum screen once confirmed viable. Will offer first trimester anatomy US. Plan MFM consult, Level II US, and cardiac echo. Assessment & Plan (02/27/2019 5:09 PM INTRAMURAL DIRECTOR): Will offer maternal serum screen once confirmed viable. Plan MFM consult, Level II US, and cardiac echo. Attention Deficit Hyperactive Disorder 9 Assessment & Plan (03/17/2019 3:33 PM INTRAMURAL DIRECTOR): Referral to Psychiatry scheduled for 04/01/2019. Working with Ariela Hanks in care coordination to assist with coordinating this. Dr. Finney is prescribing her Adderall in the meantime. Has had improvement in symptoms back on medication, and is happy with this, though she believes her symptoms could be better controlled. Assessment & Plan (03/04/2019 1:50 PM INTRAMURAL DIRECTOR): Plan referral to Psychiatry. Working with Ariela Hanks in care coordination to assist with coordinating this. Dr. Finney is prescribing her Adderall in the meantime. Has had improvement in symptoms back on medication, and is happy with this, though she believes her symptoms could be better controlled. Assessment & Plan (02/27/2019 4:40 PM INTRAMURAL DIRECTOR): Plan referral to Psychiatry in [place]. Referral will need to be provided by [...] frequently. Assessment & Plan (03/17/2019 3:32 PM INTRAMURAL DIRECTOR): Reports increased symptoms. Has not picked up albuterol or pulmicort. Prescriptions resent. Assessment & Plan (02/27/2019 4:41 PM INTRAMURAL DIRECTOR): Will confirm at the next visit that [...] most likely will not do due to adventism considerations. having a vasectomy. Major Depressive Disorder, [...] the 67%ile with EFW of 2543 gm. [facility] recommended follow up US in [...] was in place. She also reports failing NEW CAR INSPECTOR. She is considering the NuvaRing for contraception [...] 04/17/2019 Assessment & Plan (03/26/2019 11:43 AM INTRAMURAL DIRECTOR): US today shows a gestational sac with [...] US. Assessment & Plan (03/04/2019 1:56 PM INTRAMURAL DIRECTOR): labs and OB education will be ordered [...] 07/04/2023 Assessment & Plan (03/26/2019 11:40 AM INTRAMURAL DIRECTOR): UA/UCx negative on 03/04/2019. Assessment & Plan (03/04/2019 1:54 PM INTRAMURAL DIRECTOR): No fevers, chills, or CVA tenderness. Stress 02/27/2019 01/29/2023 Overview (01/08/2020): Please see details above under depression anxiety Maternal Care For Vertical S car From Previous Delivery 02/27/2019 04/19/2019 Overview (02/27/2019): History of classical section. Operative report reviewed. Plan delivery at 36+0 weeks - 37+6 weeks gestation. Assessment & Plan (03/17/2019 3:35 PM INTRAMURAL DIRECTOR): Plan MFM consult and Level II US. Assessment & Plan (03/04/2019 1:52 PM INTRAMURAL DIRECTOR): Plan MFM consult and Level II US. Assessment & Plan (02/27/2019 5:08 PM INTRAMURAL DIRECTOR): Plan MFM consult and Level II US. Multiparity Grand With 02/27/2019 05/28/2023 Overview (03/29/2023): Increased risk of PPH. Assessment & Plan (03/17/2019 3:35 PM INTRAMURAL DIRECTOR): CBC and type and screen upon admission for section. She has asthma, so will have Methergine immediately available at the time of delivery. We will avoid the use of Hemabate. Assessment & Plan (03/04/2019 1:52 PM INTRAMURAL DIRECTOR): CBC and type and screen upon admission for section. She has asthma, so will have Methergine immediately available at the time of delivery. We will avoid the use of Hemabate Assessment & Plan (02/27/2019 5:10 PM INTRAMURAL DIRECTOR): CBC and type and screen upon admission [...] was able to move with her to [place] and a 5-bedroom 3-bathroom house and was [...] mood-standpoint. Assessment & Plan (03/26/2019 11:38 AM INTRAMURAL DIRECTOR): Psychiatry visit is being coordinated. EPDS score 6 and GISEL-7 score 3 when last checked. She now has custody of 7 of her children and that has helped. Assessment & Plan (03/04/2019 1:50 PM INTRAMURAL DIRECTOR): Psychiatry visit is being coordinated. EPDS score 6 and GISEL-7 score 3 today. Assessment & Plan (02/27/2019 5:11 PM INTRAMURAL DIRECTOR): Plan psychiatry referral. EPDS at next visit. [place] II No Diagnosis 023 Immunizations Immunization Administration Dates Next Due 4vHPV (discontinued) 05/02/2007,07/17/2006,04/19 DTP 03/08/1993,1992,1992 DTP / Hib 08/22/1994 DTaP (Infanrix, [employer]edia) 06/08/1997 HepA, Pediatric Unspecified 11/10/2003, 0 HepA, Unspecified 11/10/2003,11/02/1999,04/28/19 00 HepB, Unspecified 08/22/1994,1992,04/30/18 93 Hib, Unspecified 03/08/1993,1992, 3 MCV4 (Menactra)(Discontinued) 04/19/2006 MMR 01/30/2020(Deferred: Patient Refused),12/20/2011,06/08/1997,08/19/1993 Polio, Unspecified 06/08/1997,03/08/1993, 993,1992 Rabies (Imovax) 08/03/2023,07/27/2023,07/23/2023 ,07/20/2023 Td, (Adult) Unspecified 11/10/2003 Tdap 07/20/2023(Deferred: Patient Refused),11/20/2016,06/01/2015,09/15/2009,04/10 REHANA 06/01/2015,02/22/2006,08/22/1994 Family History Medical History Relation [...] drink = 0.6 oz pur e alcohol) [facility] Incoming Mediaities Answer Date Recorded In the past 12 months has th e [place], gas, oil, or water [employer] threatened to shut off services in your [...] by your partner or ex-partner? No 05/17/2023 Hunger Vital Sign Answer Date Recorded Within [...] PHQ-9 Total Score (max 27) 0 08/01 Housing Stability Answer Date Recorded What is your living situation today? I have a [facility] place to live 05/17/2023 Education Answer [...] Body Mass Index 40.29 06/07/2023 10:01 AM INTRAMURAL DIRECTOR Plan of Treatment Health Maintenance Due Date Last Done Comments Pneumococcal vaccine (0-49 y ears) (1 of 2 - PCV) 2011 Asthma Action Plan 02/26/2019 Asthma Management/Exacerbati on Questionnaire (AMQ/AEQ) 02/26/2019 Asthma Control Test Questionnaire 10/26/2022 023 Depression Screening (Annual PHQ-2) 04/09/2024 COVID-19 Vaccine (1 - 2023-2 5 season) 2024 Influenza Vaccine (#1) 2024 DTaP,Tdap,and Td Vaccines (1 0 - Td or Tdap) 11/20/2026 11/20/2016, 06/01/2015, 09/15/2009, Additional history exists Cervical/Vaginal Cancer Screening 01/30/2028 023, 01/29/2023 Hepatitis B Vaccines Completed 08/22/1994, 1992, 1992 IPV Vaccines Completed 06/08/1997, 02/09, 1992, Additional history exists HPV Vaccines Completed 05/02/2007, 07/08, 04/19/2006 Varicella Vaccines Completed 06/01/2015, 1 04/24/2005, 08/22/1994 HIV Screening Completed 01/29/2023, 11/2022, 12/29/2019 Hepatitis B Screening Discontinued 01/29/2023 [...] OD ORDERABLES Final Result Performing Organization Address [facility]/ZIP Co de Phone Number [facility] [address] [place] [id number], [facility] [address] [address] * Hepatitis B Surface Antigen (01/29/2023 3:16 PM CDT) HBs Antigen, S Nonreactive Nonreactive 01/29/2023 10:21 PM CDT AUST Blood (Blood, Venous) 01/29/2023 3:16 PM CDT 01/29/2023 9:37 PM CDT Cecilio Healy Jr., M.D. LAB MICROBIOLOGY - BLO OD ORDERABLES Final Result Performing Organization Address City/[facility]/ZIP Co de Phone Number [facility] [address] [place] [address], [place] AUST [facility] [address] [place] [address] * HPV with Genotyping, PCR, ThinPrep (01/29/2023 [...] correlated with patient's history, clinical presentation, and PRINCIPAL LIBRARIAN cytology report. 01/29/2023 2:28 PM CDT 01/30/2023 6:49 AM CDT us Cecilio Healy Jr., M.D. LAB MICROBIOLOGY - GEN ERAL ORDERABLES Final Result [facility] [address] [place] [address], [place] [address] [address] [address] from Last 3 Months or Most Recently Relevant to Health Maintenance Insurance [facility] Advance Directives For more information, please contact: [phone] * Full Code (Latest Code Status on File) Date Activated Date Inactivated Comments 05/01/2023 10:56 AM 05/04/2023 2:22 PM Question Answer Comments Full Code: Not Discussed Due to: Not medically appropriate * Full Code Date Activated Date Inactivated Comments 01/29/2020 10:37 AM 01/29/2020 6:03 PM Question Answer Comments Full Code: Not Discussed Due to: Not medically appropriate Care Teams Bailing Machine Operator Relationship Specialty Start Date End Date None Reported, Pcp PCP - General Family Medicine 07/20/23
--- OUTSIDE RECORDS SUMMARY | 2024-12-15 10:23 | XMS_ITS | Clinical Summary ---
Author Organization [facility] Address [address] [place] [address] Care Team Providers Care Barrel Cleaner Name Role Phone Lucretia, Md Primary Care [...] (1 - season) 2024 Influenza Vaccine (#1) 2024 Adult Tetanus Booster 11/20/2026 11/20/2016 , 06/01/2015, 09/15/2009, Additional history exists RSV Vaccines (1 - 1-dose 75+ series) 2067 HPV Vaccine Completed 05/02/2007, 07/08, 04/19/2006 Meningococcal B Vaccine Aged Out No l onger eligible based on patient's age to complete this topic Care Teams Barrel Cleaner Relationship Specialty Start Date End Date None, PCP - General 09/24/18 None, PCP - Primary Care Clinic 09/24/18
[2024-12-15 10:47] VITALS: BP 143/107; PULSE 101; RESP 18; TEMP 35.8; O2SAT 97
--- NOTE | 2024-12-15 11:14 | ED.GENADULT ---
HPI - General Adult General Chief complaint: Unspecified Complaint, Adult Stated complaint: Rabies Exposure Time Seen by Provider: 12/15/24 10:23 History of Present Illness HPI narrative: This patient brings herself and 4 children in because of possible exposure to rabies. She states that there were bats in her house which she did not see but 1 apparently had bit her domesticated cat. The cat is not vaccinated and now is gone from the home and does not want to return behaving strangely. There is no sign of injury from the cat or bats on any of her children or the patient herself but there is nevertheless a possible risk of exposure. This patient was vaccinated less than a year and half ago because of a similar rabies exposure event. Related Data Home Medications ?Medication ?Instructions ?Recorded ?Confirmed docosahexaenoic acid 200 mg mg PO 01/29/24 09/22/24 capsule ( DHA) ibuprofen 200 mg tablet 200 mg PO Q6H PRN 01/29/24 12/15/24 acetaminophen 325 mg tablet PO 08/12/24 09/22/24 magnesium oxide 200 mg PO DAILY 08/12/24 12/15/24 Previous Rx's ?Medication ?Instructions ?Recorded dextroamphetamine-amphetamine ER 50 mg (2 x 25 mg) PO QDAY #14 caps 05/16/24 25 mg 24hr capsule,extend release (Adderall XR) Water Innovate pelvic floor stimulator #1 ea 05/31/24 peg 3350-electrolytes 236 240 ml PO ONCE #1 bottle 08/29/24 gram-22.74 gram-6.74 gram-5.86 gram solution (Golytely) albuterol sulfate 90 mcg/actuation 2 puff inhalation Q4-6H PRN 09/22/24 aerosol inhaler shortness of breath or wheezing #8.5 grams dextroamphetamine-amphetamine 20 1 tab PO TID #90 tabs 09/22/24 mg tablet estradiol 0.01% (0.1 mg/gram) 0.5 g vaginal 2XW #42.5 grams 09/22/24 vaginal cream (Estrace) fluticasone furoate 200 1 inh inhalation DAILY #30 ea 09/22/24 mcg/actuation blister powder for inhalation (Arnuity Ellipta) hydroxyzine HCl 50 mg tablet 100 mg (2 x 50 mg) PO QID PRN 09/22/24 anxiety or allergies #60 tabs metoclopramide HCl 5 mg tablet 10 mg (2 x 5 mg) PO QID #240 tabs 09/24/24 peg 3350-electrolytes 236 240 ml PO ONCE #4,000 mL 10/06/24 gram-22.74 gram-6.74 gram-5.86 gram solution (Golytely) Allergies Allergy/AdvReac Type Severity Reaction Status Date / Time cephalexin (From Keflex) Allergy Intermediate Verified 12/15/24 10:54 latex Allergy Mild Verified 12/15/24 10:54 Review of Systems Status of ROS: Reports: 10 or more systems reviewed and unremarkable except as noted in History and below Narrative: Constitutional: No fevers, no weight gain or loss. Eyes: No discharge. No vision changes. HENT: No congestion, no sore throat, no ear pain. Cardiovascular: No chest pain, no palpitations. Respiratory: No shortness of breath, no wheezes, no cough. Gastrointestinal: No abdominal pain, no vomiting, no diarrhea. Genitourinary: No dysuria, no hematuria. Musculoskeletal: Normal range of motion. Skin: No rashes, no pruritis. Neurological: No dizziness, weakness, sensory change, speech change. Endo/Heme/Allergies: No bruising or bleeding. No polydipsia. Pysch: no suicidality, no anxiety, no insomnia. All other systems reviewed and are negative. [facility] Medical History (Updated 12/15/24 @ 11:29 by Mariusz Rome MD) delivery ?O60.10X0 - labor with delivery, unspecified trimester, not applicable or unspecified (ICD-10) Surgical History (Updated 09/27/24 @ 19:21 by Johana Clark MD) History of hysterectomy ?Z90.710 - Acquired absence of both cervix and uterus (ICD-10) History of appendectomy ?Z90.49 - Acquired absence of other specified parts of digestive tract (ICD-10) S/P section ?Z98.891 - History of uterine scar from previous surgery (ICD-10) Social History (Updated 09/22/24 @ 15:08 by Itzel Jules~[facility], APPRENTICESHIP CONSULTANT) What is your current living situation?: I presently have a place to live Problems where you live: no known problems In the past 12 months, utilities in danger of being shut off: no In past 12 months, lack of transportation kept you from medical appts, meetings, work, or getting things needed for daily living: no In the past 12 mos, have been you worried that your food would run out before you had money to buy more?: never true In the past 12 mos, the food you bought just didn't last and you didn't have money to buy more?: never true How often does anyone, including family, friends and others, physically hurt you: never How often does anyone, including family, friends and others, insult or talk down to you: never How often does anyone, including family, friends and others, threaten you with harm: never How often does anyone, including family, friends and others, scream or curse at you: never Exam Narrative: Exam Narrative: Constitutional: Well-developed, well-nourished, no acute distress. HEENT: Normocephalic, atraumatic. Neck: Normal range of motion. Nontender. Supple. Heart: Intact distal pulses. Lungs: No chest discomfort. No wheezes, rhonchi, or rales. Abdomen: Nontender. Back: Normal range of motion. Extremities: Normal range of motion. No injury. Skin: Intact. No rash. Warm. No erythema or pallor. Neurologic: No altered sensation. No weakness. Alert and oriented. Psychiatric: No suicidality. No anxiety or depression. No insomnia. Nursing notes and vitals signs are reviewed. Const: Vital Signs, click to edit/add: Vital Signs - 24 hr 12/15/24 10:47 Temperature 96.4 F L Pulse Rate [Right Pulse Oximeter] 101 H Respiratory Rate 18 Blood Pressure [Ri ght Upper Arm] 143/107 H Pulse Oximetry 97 Oxygen Delivery Me thod Room Air Course Vital Signs Vital signs: Initial Vital Signs Temperature 96.4 F L 12/15/24 10:47 Temperature Source Temporal Artery Scan 12/15/24 10:47 Pulse Rate 101 H 12/15/24 10:47 Pulse Rhythm Regular 12/15/24 10:47 Pulse Strength 3+ Normal 12/15/24 10:47 Respiratory Rate 18 12/15/24 10:47 Blood Pressure 143/107 H 12/15/24 10:47 Blood Pressure Mean 119 H 12/15/24 10:47 Blood Pressure Position Sitting 12/15/24 10:47 Pulse Oximetry 97 12/15/24 10:47 Oxygen Delivery Method Room Air 12/15/24 10:47 Vital Signs Temperature 96.4 F L 12/15/24 10:47 Pulse Rate 101 H 12/15/24 10:47 Respiratory Rate 18 12/15/24 10:47 Blood Pressure 143/107 H 12/15/24 10:47 Pulse Oximetry 97 12/15/24 10:47 Oxygen Delivery Method Room Air 12/15/24 10:47 Temperature 96.4 F L 12/15/24 10:47 Pulse Rate 101 H 12/15/24 10:47 Respiratory Rate 18 12/15/24 10:47 Blood Pressure 143/107 H 12/15/24 10:47 Pulse Oximetry 97 12/15/24 10:47 Oxygen Delivery Method Room Air 12/15/24 10:47 Medical Decision Making MDM Narrative Medical decision making narrative: This patient comes in with her children with concern about possible rabies exposure from bats in her home. The patient herself was vaccinated less than a year and half ago and has protection up to a couple years. She does not need repeat immunoglobulin and vaccination at this time. Her children are in need of such treatment. Discharge Plan Discharge Clinical Impression: Rabies exposure Patient Disposition: Home, Self-Care Condition: Stable Additional Instructions: continue current plans. Follow up with MD as needed. Prescriptions: No Action ibuprofen 200 mg tablet 200 mg PO Q6H PRN DHA 200 mg capsule PO (DME) Heavenly pelvic floor stimulator See Rx Instructions .Route .MEDSUPPLY Qty: 1 0RF Rx Instructions: As directed estradiol [Estrace] 0.01 % (0.1 mg/gram) cream 0.5 g vaginal 2XW Qty: 42.5 3RF Rx Instructions: Use nightly for 2 weeks, then twice weekly. May apply with finger. dextroamphetamine-amphetamine 20 mg tablet 1 tab PO TID Qty: 90 0RF albuterol sulfate 90 mcg/actuation HFA aerosol inhaler 2 puff inhalation Q4-6H PRN (Reason: shortness of breath or wheezing) Qty: 8.5 1RF Arnuity Ellipta 200 mcg/actuation blister with device 1 inh inhalation DAILY Qty: 30 12RF hydroxyzine HCl 50 mg tablet 100 mg PO QID PRN (Reason: anxiety or allergies) Qty: 60 11RF acetaminophen 325 mg tablet PO magnesium oxide 200 mg magnesium tablet 200 mg PO DAILY dextroamphetamine-amphetamine [Adderall XR] 25 mg capsule,extended release 24hr 50 mg PO QDAY Qty: 14 0RF peg 3350-electrolytes [Golytely] 236-22.74-6.74 -5.86 gram recon soln 240 ml PO ONCE Qty: 1 0RF Rx Instructions: 4pm day prior to procedure. Drink 8oz glass every 15 minutes until 1/2 of solution is gone. 6 hours prior to procedure drink 8 oz glass every 15 minutes until remaining solution gone. metoclopramide HCl 5 mg tablet 10 mg PO QID Qty: 240 11RF peg 3350-electrolytes [Golytely] 236-22.74-6.74 -5.86 gram recon soln 240 ml PO ONCE Qty: 4000 0RF Rx Instructions: 4pm day prior to procedure. Drink 8oz glass every 15 minutes until 1/2 of solution is gone. 6 hours prior to your procedure time drink 8oz glass every 15 minutes until remaining solution is gone. Follow Up/Referrals: Marko Dobbins MD [Primary Care Provider, Family Practice] Stand Alone Forms: [facility] Info Instructions
[2024-12-15 11:45] VITALS: BP 122/85
== END 2024-12-15 12:39 | disposition home or self-care (01) ==
PROVIDERS: Emergency Provider Emergency Medicine Emergency Medical Services; PCP Family Medicine
DX: Z20.3 Contact with and (suspected) exposure to rabies (principal)
CPT/HCPCS: 99281; 99283; 99284

== ENCOUNTER 2024-12-22 11:42 | Outpatient (CLI) | payer BC, SELFPAY ==
[2024-12-22 11:58] LABS: Appearance Urine Clear (Clear)
== END 2024-12-22 11:43 | disposition home or self-care (01) ==
LOC: NFLDREF 11:42
PROVIDERS: PCP Family Medicine; Visit Provider Obstetrics & Gynecology
DX: N94.89 Other specified conditions associated with female genital organs and menstrual cycle (principal)
CPT/HCPCS: 81003; 84443; 87086

== ENCOUNTER 2025-02-17 17:07 | Emergency (ER) | payer BC, SELFPAY ==
--- OUTSIDE RECORDS SUMMARY | 2025-02-17 17:10 | XMS_ITS | Clinical Summary ---
Author Organization [facility] Address [address] [place] [address] Care Team Providers Care Retail Support Specialist Name Role Phone Md FAMILIA Cueva Primary Care Provider [phone] Source Comments You are receiving this document as you are listed as the primary care provider,follow-up provider, or the patient has been referred to you for consultation.This is in compliance with the Medicare and[facility] Hospitalca[facility] EHR Incentive Program,which states Providers who transition their patient to another setting of careor provider of care or refers their patient to another provider of care shouldprovide summary care record for each transition of care or referral. 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 Not on file Not on edgar e Last Filed Vital Signs Vital Sign Reading Time Taken Comments Blood Pressure 126/67 04/19/2021 1:34 PM SPEEDER HAND Pulse 97 04/19/2021 1:34 PM SPEEDER HAND Temperature 36.6 C (97.9 F) 07/01/2011 4:09 PM CDT Respiratory Rate 16 07/01/2011 4:09 PM CDT Oxygen Saturation 98% 03/27/2011 2:24 PM SPEEDER HAND Inhaled Oxygen Concentration - - Weight 74.8 kg (165 lb) 04/19/2021 1:34 PM SPEEDER HAND Height 160 cm (5' 3) 12/06/2010 10:53 [...] - season) 2024 Influenza Vaccine (#1) 2024 DTaP/Tdap/Td Vaccine (10 - Tdap) 11/20/2026 [...] Comments HIV ANTIBODY Routine 03/11/2010 3:33 PM SPEEDER HAND from Last 3 Months or Most Recently Relevant to Health Maintenance Results * HIV ANTIBODY (03/11/2010 3:33 PM SPEEDER HAND) HIV 1/HIV 2 Non-React No normal range HP CONVERSION 03/11/2010 3:33 PM SPEEDER HAND us Dakhsa Moreira CRUDE OIL DRIVER, INVESTOR RELATIONS DIRECTOR LAB_1 Final Result HP CONVERSION from Last 3 Months or Most Recently Relevant to Health Maintenance Care Teams Retail Support Specialist Relationship Specialty Start Date End [place] [address] PCP - General 07/12/10
--- OUTSIDE RECORDS SUMMARY | 2025-02-17 17:10 | XMS_ITS | Clinical Summary ---
Author Organization [facility] Address [address] [place] [id number] Care Team Providers Care Optical Instrument Inspector Name Role Phone Pcp, No Primary Care Provider Unavailabl e Allergies Active Allergy Reactions Criticality Noted Date Comments Cephalexin Angioedema,Anaphylax is, *Unknown,Throat Swelling/Closing High 07/16/2016 Latex Hives,Angioedema High 12/02/2015 Nonoxynol 9 Throat Swelling/Closing High 07/17/2021 Allergic to spermicide Spermaceti Throat Swelling/Closing High 02/13/2011 PN: allergic to spermacides Medications albuterol (PROVENTIL) 0.083 % neb solutionIndicatio ns:Exacerbation of asthma, unspecified asthma severity, unspecified whether persistent (HC) Inhale 3 mL via a nebulizer every 4 hours if needed. 1 box 08/28/19 18 Active albuterol HFA 90 mcg/actuation inhalerIndication s:Mild intermittent asthma without complication (HC) Inhale 1-2 Puffs by mouth every 4 hours if needed. 2 Inhaler 3 05/09/19 19 Active budesonide (PULMICORT) 90 mcg/actuation inhalerIndication s:Mild intermittent asthma with acute exacerbation (HC) Inhale 90 mcg by mouth 2 times daily. 1 Inhaler 5 06/14/19 19 Active EPINEPHrine (EPIPEN) 0.3 mg/0.3 mL injectionIndicati ons:Allergic reaction, initial encounter Inject 0.3 mg intramuscular one time if needed for Allergic Reaction. 2 Each 01/09/20 19 Active dextroamphetamine /amphetamine (ADDERALL XR ORAL) Take 40 mg by mouth once daily. Active acetaminophen (TYLENOL EXTRA STRGTH) 500 mg tablet Take 1,000 mg by mouth every 6 hours if needed. 05/21/19 24 Active Calcium-Cholecalc iferol (D3) (Calcium 600 with Vitamin D3) 600 mg-10 mcg (400 unit) chew Chew 1 Tablet by mouth two times daily. Active estradioL (ESTRACE) 0.01% (0.1 mg/g) vaginal cream Insert 1 g into the vagina every Sunday and Sunday. 02/06/20 25 Active Arnuity Ellipta 200 mcg/actuation inhaler Inhale 1 Puff by mouth once daily. Active fluticasone propionate (Flovent HFA) 44 mcg/Actuation inhaler Inhale 2 Puffs by mouth two times daily. Active hydrOXYzine HCL (ATARAX) 50 mg tablet Take 100 mg by mouth every 8 hours if needed for Itching. 09/24/19 25 Active LORazepam 2 mg tablet Take 2 mg by mouth 3 times daily if needed. Active metoclopramide (REGLAN) 5 mg tablet Take 10 mg by mouth four times daily before meals and at bedtime. 02/12/20 25 Active dextroamphetamine -amphetamine (ADDERALL) 20 mg tablet Take 1 Tablet by mouth every 8 hours. 02/10/20 25 Active dextroamphetamine -amphetamine (ADDERALL XR) 25 mg Extended-Release capsule Take 2 Capsules by mouth once daily. 02/10/20 25 Active 25/iron fum/folic/dha (-1 ORAL) Take 1 Tablet by mouth. 025 Discontin ued(*Medi cation adjustmen t) Blood Pressure MonitorIndication s:Normal labor and delivery (HC),, delivered (HC) Take blood pressure twice daily. Call if your blood pressure is above 150/100 (either number). 1 Each 04/12/19 22 025 Discontin ued(*Medi cation adjustmen t) ondansetron (ZOFRAN ODT) 4 mg disintegrating tabletIndications :COVID-[address] 1 Tablet (4 mg) on the tongue every 8 hours if needed for Nausea/Vomiting. 12 Tablet 11/16/19 22 025 Discontin ued(*Medi cation adjustmen t) folic acid 1 mg tablet Take 1 mg by mouth once daily. 11/04/28 22 025 Discontin ued(*Medi cation adjustmen t) Active Problems Patient Care Coordination No te [...] manic episode 022 Overview (08/16/2021): Created by [facility] Annotation: Jul 07 2011 3:48PM - GomezSuha: Stopped meds 2008 Replacement Utility updated for latest IMO load De Quervain's tenosynovitis 08/16/2021 Overview (08/16/2021): Created by Conversion [facility] 08/16/2021 Overview (08/16/2021): Created by Conversion Replacement Utility updated for latest IMO load Major depressive disorder, recurrent episode 01/2022 Overview (08/16/2021): Created by Conversion Replacement Utility updated for latest IMO load Mixed anxiety depressive disorder 08/16/2021 Overview (08/16/2021): No meds for depression/anxiety. Most of her symptoms, per her report, were secondary to her social situation during the fall. Her house (trailer) was deemed inhabitable and her kids were taken off her custody temporarily until appropriate living arrangements were made. She was able to move with her to [place] and a 5-bedroom 3-bathroom house and was [...] - 37w0d given history of prior classical. [facility] did not give specific recommendations regarding this, but since her trimester US, will plan repeat section on 02/02/2020 at 38+0 weeks, since 37+6 weeks is on a Sunday. Plan delivery in [place]. Encounter for immunization 01/01/2020 Overview (08/16/2021): Rubella [...] the 67%ile with EFW of 2543 gm. [facility] recommended follow up US in 2-3 weeks for growth based upon dating in the 3rd trimester. This was ordered today. Personal history of contraception 12/29/2019 Overview (08/16/2021): 12/28 EK: patient reports prior conception (7th ) while an IUD was in place. She also reports failing [employer]. She is considering the NuvaRing for contraception [...] Varicose veins of right lower extremity 10/30/19 Tension type headache 10/29/2017 Gallbladder polyp 09/14/2017 [...] hyperactivity disorder) Overview (05/04/2017): Diagnosed by psychiatry, [facility], in 2007 Resolved Problems Problem Noted Date [...] previa Normal transabdominal cervical length. 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 NEXT VISIT ALERTS: PLANS & FUTURE APPOINTMENTS: - OB visits through: 01/17/18 with H&P with MD TESTING PLAN: Weekly at 28 weeks with doppler - Testing through: 01/17/18 GROWTH PLAN: -Next Growth u/s: DELIVERY PLAN: on 01/10 delivery 37-38 weeks due to IUGR - Scheduled delivery: 01/21/18 @ 1400 - Preferred delivery location: [place] PRIMARY DIAGNOSIS: 27 y.o. Estimated Date of [...] defect. REFERRING PHYSICIAN/PHONE/LAST UPDATE: Dr Teresa Childress [phone] Primary MD approves scheduling of recommended ultrasounds/testing. SPECIALISTS/CONSULTS: Neonatology 01/10/18 Pediatric Surgery: 11/26 Dr. Hitchcock [facility] Tour ALVAREZ signed for [facility]: Signed 10/29/17 CARE COORDINATION: Johana Vieira,RN/Marva Lai RN/Trisha Tobar RN/Lea Khan RN [phone] PLASTIC TILE SETTER: DIAMOND Guillory RAIL SWITCHMAN: Pager: [phone] GENETICS: Beto Enciso done 10/08/17-low risk PROCEDURES: 12/18 MRI [facility] 09/11/17 Maternal abd U/S 1. No shadowing [...] assistance? YES CHECKLIST FOR SCHEDULING PROCEDURES: Call [phone] for [employer] and [phone] for [employer] (UTD cerclages Day Surgery [phone]) Procedure: C/ Hospital: [place] Unit: L&D Date & Time of procedure: 01/21/18 at 1400pm Laura Score if induction: N/A Pertinent information: Omphalocele containing liver, bowel and stomach Gestational age on procedure date? 37w0d MD doing procedure: Dr. Douglas Date scheduled: 01/10/18 when pt was 35w3d; Rescheduled 01/17/18 Scheduling MD & RN: Dr Boggs/NORBERT Covington Notifications: Hospitalist Delivery-OBH quality control head notified through [employer] inbox? Yes MPP MD quality control head notified via [employer] inbox? Yes Primary MD notified via [employer] inbox? No Primary MD clinic called if not [employer] Internationalbertha? No On [facility] calendar? Yes Care Coordination notified? Yes H&P/PPTL: PPTL permit signed? Not Applicable H&P and Plan in chart? No [facility] appointment made for H&P with MEDICAL INVESTIGATOR within 7 days of surgical procedure? Yes Date: 01/17/18 with MD Patient notification: Patient notified of procedure date? Yes Written admission instructions given to patient via AVS? Given 01/10/18 PLAN OF CARE: 01/10/18 per SS -Continue with routine care through [facility]. -Continue weekly testing -Plan for delivery [...] 05/04/2017 Decreased movements in third trimester 01/21/2018 Encounters Date Type Department Care Team Description 02/17/2025 4:36 PM [employer] - 02/17/2025 4:59 PM [employer] Emergency [facility] [address] [place] [address] Discharge Disposition: Against Medical Advice or Discontinued Care 02/17/2025 4:05 PM [employer] Office Visit [facility] [address] [place] [phone] Jess Garcia NP Dental Problem (Left bottom tooth has the nerve exposed, did see the dentist today they gave antibiotics and told to take Tylenol and ibuprofen. / started last night. ) 02/17/2025 Travel from Last 3 Months Immunizations Immunization Administration Dates Next Due DTP [...] Answer Date Recorded PHQ-2 Score 6 01/15/2019 Comments No Sex and Gender Information Value Date Recorded Sex Assigned at Not on file Legal Sex Female 7:53 AM [employer] Gender Identity Not on file Sexual Orientation [...] g 9 9 Jacob arreguin Complications:None Delivery Location:[facility] Comments:Teen Pregnanc y 2010 Term 37w [...] 8 PELTI ER,BG IVORY jaramillo Complications:None Delivery Location:[facility] 2017 Term 37w 0d 0h 02m 2.4 kg (5 lb 4.7 oz) M CS-Cla ssical Spinal Livin g 8 8 PELTI ER,BB IVORY LE Wagne r/Ahr ens Complications:None,Known fet al anomaly, antepartum (HC) Delivery Location:[facility] ([id number]) Comments:baby with omp alocele, IUGR, VSD 2018 SAB 9w0 d 2019 Term 37w 3d 3.29 kg (7 lb 4 oz) M CS-LTr anv Spinal Livin g Delivery [facility] 2021 Para 0h 10m 0h 10m 2.47 kg (5 lb 7.1 oz) F None Livin g PELTI ER,BG IVORY LE Bramb let, Tana l Mansf ield, DO Complications:Precipitous la bor (< 3 hours) Delivery Location:Hospital ( [facility]) Comments Last was a C-Secti on and did a T-Cut on uterus causing baby to have organs born on the outside of body. Rea Gonzalez [facility] 05/22/2018 1:01 PM No other issues/no episiotomy. Rea Gonzalez [facility] 05/22/2018 1:02 PM Last Filed Vital Signs Vital Sign Reading Time Taken Comments Blood Pressure 139/91 02/17/2025 4:14 PM [employer] Pulse 101 02/17/2025 4:14 PM [employer] Temperature 36.4 C (97.6 F) 02/17/2025 4:14 PM [employer] Respiratory Rate 18 02/17/2025 4:14 PM [employer] Oxygen Saturation 99% 02/17/2025 4:14 PM [employer] Inhaled Oxygen Concentration - - Weight 96.2 kg (212 lb) 02/17/2025 4:14 PM [employer] Height 160 cm (5' 3) 04/30/2023 4:38 PM [employer] Body Mass Index 37.55 04/30/2023 4:38 PM [employer] Plan of Treatment Health Maintenance Due Date Last Done Comments Pap test for age 21-65 06/23/2019 06/22/2016 BMI (ht and wt on same day) for age 18+ 01/17/2020 01/16/2019, 01/08/2019, 07/31/2018, Additional history exists Depression screening for age 12+ 01/18/2020 01/17/2019, 01/16/2019, 01/15/2019, Additional history exists Influenza Vaccine (#1) 2024 Tetanus booster 11/20/2026 [...] ANTI HIV 1/2 Today 04/10/2021 10:19 PM [employer] ANTI HCV Routine 12/18/2016 3:58 PM CDT Grand multiparity with current , third trimester (HC) Supervision of other normal , antepartum (HC) SUPPLIER QUALITY MANAGER THIN PREP PAP SCREEN IMAGED Routine 06/22/2016 11:52 AM CDT Screening for malignant neoplasm of cervix from Last 3 Months or Most Recently Relevant to Health Maintenance Results * ANTI HIV 1/2 (04/10/2021 10:19 PM [employer]) HIV-1/HIV-2 ANTIBODY Non-Reacti ve Non-Reacti ve 04/11/2021 3:06 PM [employer]FT [facility] Comment:HIV-1 p24 and HIV-1/ HIV-2 Ab not detected. Blood BLOOD SPECIMEN / Unknown Venipuncture / Unknown 04/10/2021 10:19 PM [employer]FT 04/10/2021 10:28 PM [employer] us Marianne Fairbanks DO SEND OUTS Fin al Result [facility] [address] [place] [address], [place] * ANTI HCV (12/18/2016 3:58 PM CDT) HEPATITIS C ANTIBODY Non-Reacti ve Non-Reacti ve 12/18/2016 11:31 PM CDT [facility] Blood BLOOD SPECIMEN / Unknown Venipuncture / Unknown 12/18/2016 3:58 PM CDT 12/18/2016 3:58 PM CDT Narrative [facility] - 12/18/2016 11:31 PM CDT Antibodies to HCV not detected; does not exclude the possibility of exposure to HCV. us Teresa Chaudhary MD SEND OUTS F inal Result [facility] [address] [place] [address], [place] * SUPPLIER QUALITY MANAGER THIN PREP PAP SCREEN IMAGED (06/22/2016 11:52 AM CDT) Case Report Gynecologic Cytology Report Case: [id number] Authorizing Provider: Ana Holliday DO Collected: 06/22/2016 1152 Ordering Location: [facility] Received: 06/22/2016 1152 [facility] First Screen: Jen Velazquez Specimen: SUPPLIER QUALITY MANAGER ThinPrep Vial Screening, Cervical 06/29/2016 2:14 PM CDT [email or web address] INTERPRETATION/ RESULT NEGATIVE FOR INTRAEPITHELIAL LESION OR MALIGNANCY (NIL) (none) 06/29/2016 2:14 PM CDT [facility] at 1414 CDT SPECIMEN ADEQUACY Satisfactory for evaluation Endocervical component present Obscuring Inflammation 06/29/2016 2:14 PM CDT [email or web address] HPV REQUEST HPV if ASCUS 06/29/2016 2:14 PM CDT [facility] Date of LMP 06/29/2016 2:14 PM CDT [email or web address] Last Pap Date 2016/ outside of [facility] 06/29/2016 2:14 PM CDT [facility] Last Pap Result NIL 7 2:14 PM CDT [facility] Abnormal Pap or [place] Bx in last 5 years No 06/29/2016 2:14 PM CDT [facility] Menstrual Status 06/29/2016 2:14 PM CDT [facility] [place] Bx Done Today No 06/29/2016 2:14 PM CDT [facility] Additional Information None given 06/29/2016 2:14 PM CDT [facility] Automated Review Successful 06/29/2016 2:14 PM CDT [facility] Comment:Specimen processed s uccessfully by automated diesel mechanic construction device, [employer], [employer] Note The pap test is a screening technique, not a diagnostic procedure. It is used primarily to screen for squamous cancers and precursor lesions. Published studies have shown that it is subject to both false negative and false positive results. The pap test should not be used as the sole means to diagnose or exclude pre-malignant and malignant lesions. Interpreted at [facility] ([facility], [facility], [facility], [facility], [facility], [facility], [facility]) 06/29/2016 2:14 PM CDT [facility] Other (Cervical) 06/22/2016 11:52 AM CDT 06/22/2016 11:52 AM CDT us Ana Holliday DO PATHOLOGY/CYTOLOGY Final R esult [facility] [address] [place] [address], [place] from Last 3 Months or Most Recently Relevant to Health Maintenance Insurance [facility]1983 Advance Directives * Full Code (Latest Code [...] 10:52 PM 01/12/2017 1:06 AM Care Teams Optical Instrument Inspector Relationship Specialty Start Date End Date Pcp, No . PCP - General 04/30/23
--- OUTSIDE RECORDS SUMMARY | 2025-02-17 17:10 | XMS_ITS | Clinical Summary ---
Author Organization [facility] Address [address] [place] [address] Care Team Providers Care Blending Line Attendant Name Role Phone Lucretia, Md Primary Care [...] age to complete this topic Care Teams Blending Line Attendant Relationship Specialty Start Date End Date None, PCP - General 09/24/18 None, PCP - Primary Care Clinic 09/24/18
--- OUTSIDE RECORDS SUMMARY | 2025-02-17 17:10 | XMS_ITS | Data Portability ---
Author Organization [place] [facility], [id number] Address [address] [place] [address] [address] [place] [address] Assessment No assessment recorded. Plan of Treatment Reminders Order Date Submit Date Provider Last Modified By Organization Details Last Modified Time Details Appointments None record ed. Lab None record ed. Referral None record ed. Procedures None record ed. Surgeries None record ed. Imaging US, obstet neri, follow -up 022 03/27/20 22 [email or web address] [id number] [facility], [address], [address], [place], [address], 15:50:58 Medication Orders None record ed. Patient TargetsNo targets recorded. Patient Instructions Encounter Date Encounter Id Patient Instructions Last Modified By Organization Details Last Modified Time 04/14/2022 [id number] - Doing well. Al l questions answered. [email or web address] Not available 04/10/2022 22:52:25 05/18/2022 [id number] - Maintain a healthy diet and exercise, keep yourself hydrated. - No intercourse and no lifting more than 35 pounds. - You can rub coconut oil or vitamin e oil on your incision to help with the healing. - F/U for post visit. [email or web address] Not available 05/18/2022 15:35:19 - Reviewed post-op incision care. - Discussed post-op exercise and restrictions. - She may resume modified activity. - Questions answered. [email or web address] Not available 05/18/2022 15:35:02 Reason for Referral None Reported. Results Created Date Observation Date Name Description Value Unit Range Abnormal Flag Note LastModifiedBy Organization Detail LastModifiedTime 02/28/20 22 02/27/2022 TREPO NEMA ABS W REFLE X TO RPR AND CONF OR TITER treponema antibody total Nonrea ctive nonrea ctive Not Available [address], [place], [address], 02/28/2022 11:49:56 02/28/20 22 02/27/2022 hemog lobin (Hb), blood hemoglobin, blood 13.0 g/dL 12.0-1 5.0 normal Not Available [id number] [facility] [address], [place], [address], 02/27/2022 15:36:35 02/28/20 22 02/27/2022 gluco se ollie ance test, 1-atilio r 1 hour post-glucola serum glucose 98 mg/dL <140 normal Not Available [facility] [address], [place], [address], 02/23/2022 11:51:38 02/28/20 22 02/27/2022 US, thaddeus mengo w-up No observ ation record ed. [email or web address] [address], [place], [address], 02/27/2022 17:29:40 03/27/20 22 03/27/2022 US, meche cedeño follo w-up No observ ation record ed. [email or web address] Lou [address], [place], [address], 03/27/2022 16:22:14 Result Notes None recorded. Problems Name Problem SNOMED Code Status Onset Date Resolution Date Notes Provider Name and Address Organization Details Recorded Time Oppositio nal defiant disorder 65405304 Active Not on meds Haley L. SH[employer]LA [employer] [facility] 3 10:15:14 Post-trau matic stress disorder 24302808 Active Not on meds Haley L. Larrabee null, [facility] 3 10:15:14 Asthma 316506900 Active Inhaler Haley L. Larrabee null, [facility] 3 10:15:14 Vaginal delivery following previous section 153963266 Active #10=[facility] Home Haley L. Meaghan null, [facility] 3 10:15:14 Attention deficit hyperacti vity disorder 518648079 Active Not on meds Haley L. Meaghan null, [facility] 3 10:15:14 Past history of section 040674481 Active #8=Class ical, #9=Repea t Haley L. Meaghan null, [facility] 3 10:15:14 Oppositio nal defiant disorder 59757059 Completed Not on meds Haley L. Meaghan null, [facility] 3 10:15:14 Post-trau matic stress disorder 09400058 Completed Not on meds Haley L. Meaghan null, [facility] 3 10:15:14 Asthma 621122280 Completed Inhaler Haley L. Larrabee null, [facility] 3 10:15:14 Vaginal delivery following previous section 443591605 Completed #10=[facility] Home Haley L. Larrabee null, [facility] 3 10:15:14 Attention deficit hyperacti vity disorder 469898916 Completed Not on meds Haley L. Larrabee null, [facility] 3 10:15:14 Past history of section 545067309 Completed #8=Class ical, #9=Repea t Haley L. Meaghan null, [facility] 3 10:15:14 10565275 Active 2021 Grisel Moreno (TERMED) null, [facility] 2 12:32:34 Problem Notes None recorded. Procedures Surgical History Date Name Laterality Status Provider Name and Address Organization Details Recorded Time 1 Date of Last Pap Smear completed Grisel Moreno (TERMED) [facility] 10/20/2021 10:23:28 0 section completed Grisel Moreno (TERMED) [facility] 10/20/2021 10:25:43 8 section completed Grisel Moreno (TERMED) [facility] 10/20/2021 10:25:30 Imaging Results None recorded. Procedure Notes None recorded. Medical Equipment None Reported. Allergies Allergen ID Allergen Name Allergen Category Reaction Reaction Severity Criticality Documentation Date Start Date Code Code System Note Provider Name and Address Organization Details Recorded Time 057123 cephalexi n medicatio n Not available Not available Not available 10/20/2021 2231 RxNorm Grisel Moreno (TERMED) null, [facility] 2 10:21:58 658080 latex environme nt,medica tion Not available Not available Not available 10/20/2021 39824 91 RxNorm Grisel Moreno (TERMED) null, [facility] 2 10:22:15 Medications Name Sig Start Date [...] Body mass index (BMI) Body weight Systolic And Diastolic Provider Name and Address Organization Details Last Updated DateTime 04/14/2022 160.02 cm 42 kg/m2 208649.39 169 g 146/92 mm[Hg] Jolie MANSFIELD [facility] 04/14/2022 16:52:18 Date Recorded Body height Systolic And Diastolic Provider Name and Address Organization Details Last Updated DateTime 05/18/2022 160.02 cm 136/82 mm[Hg] Jolie MANSFIELD [facility] [place] emwalter SHAMPOOER 05/18/2022 14:31:12 Date Recorded Body height Body mass index (BMI) Body weight Systolic And Diastolic Provider Name and Address Organization Details Last Updated DateTime 03/13/2022 160.02 cm 39.9 kg/m2 537851.28 325 g 136/72 mm[Hg] Jolie MANSFIELD [facility] 03/13/2022 15:27:22 Date Recorded Body height Body mass index (BMI) Body weight Systolic And Diastolic Provider Name and Address Organization Details Last Updated DateTime 03/27/2022 160.02 cm 41.1 kg/m2 494082.42 984 g 120/66 mm[Hg] [facility] 03/27/2022 15:50:36 Social History None recorded. Functional Status None [...] Details Recorded Time Tdap 09/15/2009 completed Partha Amie (TERMED) null, [place] - [facility] 01/04/2022 13:28:58 Tdap 11/20/2016 completed Partha Amie ([place]) [place], [place] [facility] 01/04/2022 13:28:58 MMR 12/20/2011 completed Partha Amie (TERMED) [place], [place] - [facility] 01/04/2022 13:28:58 Past Encounters Encounter ID Performer Location Encounter Start Date Encounter Closed Date Diagnosis/Indication Diagnosis SNOMED-CT Code Diagnosis ICD10 Code Diagnosis IMO Codes Diagnosis Note [id number] HEMAL CAMPBELL PA-C [id number] KARLENE Neri_AIXA E [address] [facility] [address] [place] [address] 10/20/2021 09:33:43 10/25/2021 10:06:04 Gestation period, 9 weeks 885106 Z3A.09 Routine an tenatal care 370814060 Z34.91 Past pregn lori history of section 918477181 Z98.890 8 & 9: 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 Post-traum atic stress disorder 94885041 F43.10 Not on meds Attention deficit hyperactivity disorder 897390766 F90.9 Not on meds Opposition al defiant disorder 81395510 F91.3 Not on meds Asthma 405725025 J45.90 9 Albuterol Inhaler Vaginal de livery following previous section 689475855 O34.219 #10 was an accidental at home [id number] Nicolas Dobbins MD [id number]_XEQ KARLENE S_LILYDAL E [address] [facility],[address] [place] [address] 10/20/2021 09:30:44 10/20/2021 10:18:07 Routine care 635960147 Z34.91 [id number] Lars Enamorado MD [id number]_ECB KARLENE S_WOODBUR Y [address] [place], [place] [address] [address] [address] 11/28/2021 15:27:47 11/28/2021 18:35:33 Gestation period, 12 weeks 60033160 Z3A.12 Normal pre gnancy in multigravida 2131193718 02074 Z34.81 Past pregn lori history of section 663151755 Z98.890 Post-traum atic stress disorder 15966329 F43.10 Attention deficit hyperactivity disorder 755158035 F90.9 Opposition al defiant disorder 86379889 F91.3 Asthma 284211397 J45.90 9 Vaginal de livery following previous section 512286369 O34.219 screening 2437 79887 Z36.0 [id number] Lars Enamorado MD [id number]_HXE KARLENE Neri_[place] Y [address] [place] [address] 01/06/2022 13:31:13 01/06/2022 15:01:30 Routine care 427742907 Z34.82 Gestation period, 20 weeks 37715304 Z3A.20 Past pregn lori history of section 486633087 Z98.466 [id number] MD JADE Gerard003_MET KARLENE S_[place] Y [address] [place], [place] [address] [address] 01/06/2022 13:30:51 01/06/2022 14:35:19 screening for malformation 374677677 Z3A.20 [id number] MD JADE Gerard003_MET KARLENE S_[place] Y [address] [place], [place] [address] [address] [address] 02/03/2022 15:47:04 02/03/2022 18:01:21 Routine care 065226384 Z34.82 Past pregn lori history of section 563358982 Z98.890 Gestation period, 24 weeks 467270743 Z3A.24 [id number] Lars Enamorado MD [id number]_FGN ALBINOARTNER S_WOODJOÃO Y [address] [place] [address] 02/27/2022 14:34:23 03/06/2022 15:14:02 Routine care 440898354 Z34.82 Past pregn lori history of section 944710464 Z98.890 Gestation period, 28 weeks 46905809 Z3A.28 [id number] Lars Enamorado MD [id number]_HSN ALBINOARTNER S_WO[place] Y [address] [place] [address] 02/27/2022 14:24:41 02/27/2022 14:26:38 Large for gestation age fetus 630160012 Z3A.28 [id number] Lars Enamorado MD [id number]_UWR ALBINOARTNER S_WOODJOÃO Y [address] [place] [address] 03/13/2022 15:10:54 03/14/2022 09:10:42 Routine care 136019841 Z34.82 Past pregn lori history of section 619433880 Z98.890 Gestation period, 30 weeks 04449127 Z3A.30 [id number] Lars Enamorado MD [id number]_DJY ALBINOARTYUNIOR S_WOODJOÃO Y [address] [place] [address] 1 03/27/2022 14:53:09 03/27/2022 15:27:14 Low-lying placenta 629257229 Z3A.31 [id number] Lars Enamorado MD [id number]_WJA ALBINOARTYUNIOR S_JUSTINO Y [address] [place] [address] 1 03/27/2022 14:57:56 03/27/2022 16:56:05 Past history of section 960207206 Z98.890 Gestation period, 32 weeks 9946858 Z3A.32 Low-lying placenta 80792 2007 Z3A.31 [id number] Lars Enamorado MD [id number]_AQD KARLENE PINEDA Y [facility] [address] [place] [address] 04/14/2022 15:28:29 04/17/2022 12:49:26 Routine care 708448413 Z34.82 Gestation period, 34 weeks 97841523 Z3A.34 Past pregn lori history of section 843433707 Z98.485 [id number] Lars Enamorado MD [id number]_POK ALBINOMANUEL PINEDA Y Basilio [facility] [address] [address] [place] [address] 05/18/2022 13:49:20 05/23/2022 09:48:14 Postoperative visit 712185315 Z09 Health Concerns Section Related Observation LastModified by Organization Detai ls LastModified Time None Recorded Concern Status LastModified by Organization Details LastModified Time None Recorded Advance Directives Directive None Recorded Payers Insurance Date Sequence Insurance Name Policy Number Policy Palacios Covered Member ID Palacios Member ID Guarantor Name 01/28/2024 1 [place] [id number] Charissa Silverio [id number] Charissa Silverio 10/20/2021 SLIDING FEE SCHEDULE - DISCOUNT Charissa Silverio Notes Date Note Type Note Provider Name and Address Organization Details Recorded Time 05/18/2022 text/html ROS as noted in the HPI Surgery Date: 04/27/22.Patient presents for her first post-operative evaluation.Surgi jose procedure: Section.Indicati on: Previous . The procedure was done by: Dr Milan.[place] [address] [facility],[address], [place], [address], [place] - [facility] 05/23/2022 08:08:00 OBGyn Episode Ob Episode Information Episode Created Date Number of Fetuses Patient Bloodtype Patient rh Status Prepregnancy Weight lbs Domestic Partner Domestic Partner Phone Father Name Contract Associate Status 10/21/19 22 1 A Positive Arturo Arturo CLOSED Fetus Data First Name Last Name Admitted to NICU Weight (g) Sex Living Outcome Pediatric Complications Fetus ID Race Codes Race Delivery Type M true Full Term [id number] Problems Problem Notes Agnieszka/Anna Maries/FOB: ÁlvaroreymundoEDD: 05/21/2022 by LMP -- (c/w 10wk US)- 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) & Repeat (Preg #9=Repeat)- Hx of Accidental (Preg #10=at home)- PTSD/ADHD/ODD: Not on meds- Asthma: Inhaler- Hx of Low [place] (Preg #5)- UTI @ 9wks: Macrobid Problem Name Start Date End Date Resolution Snomed Code Not e Oppositional defiant disorder 03419817 Not on meds Post-traumatic stress disorder 88577674 Not on meds Asthma 905848078 Inhaler Vaginal delivery following previous section 070693740 #10=Acciden reyna @ Home Attention deficit hyperactivity disorder 094854447 Not o n meds Past history of section 382161756 #8=Class ical, #9=Repeat Oliverio Calculation Initial Oliverio [...] Date Ultra Sound Latest Days Gestation 0 [id number] 10/25/2021 05/21/19 23 0 Pre-brandy Flowsheet Flowsheet Date 10/20/2021 Laura Score Blood [...] Weight in lbs Pre/Post Dialysis Refused Weight 163.984688483244 BP Diastolic BP Location Tested BP Systolic [...] Weight in lbs Pre/Post Dialysis Refused Weight 174.72039378708 BP Diastolic BP Location Tested BP Systolic [...] Weight in lbs Pre/Post Dialysis Refused Weight 198.210392933106 BP Diastolic BP Location Tested BP Systolic BP Type 60 110 Fetus Heart Rate Present Fetus Movement A Yes Comments Doing well. FAS today, discu ssed low lying placenta, repeat US @ 28wks, pelvic rest until then. Undecided on baby names. 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 Work note given. Insomnia, I recommend Magnesium gummies, Unisom or Tylenol PM. Reports cramping inner thigh, remedies reviewed. Routine care. FU 1mo. Flowsheet Date 02/03/2022 Laura Score Blood Edema Fundus Height Fundus Units Glucose Ketones Leukocytes Nitrite Labor Signs Protein Cervic Dilation Cervic Effacement Cervic Station Type Weight in lbs Pre/Post Dialysis Refused Weight 213.651702181571 BP Diastolic BP Location Tested BP Systolic [...] Weight in lbs Pre/Post Dialysis Refused Weight 222.88887662772 BP Diastolic BP Location Tested BP Systolic [...] Weight in lbs Pre/Post Dialysis Refused Weight 225.975722564368 BP Diastolic BP Location Tested BP Systolic [...] Weight in lbs Pre/Post Dialysis Refused Weight 232.08939689022 BP Diastolic BP Location Tested BP Systolic [...] Weight in lbs Pre/Post Dialysis Refused Weight 237.396017980986 BP Diastolic BP Location Tested BP Systolic [...] Disease false Other Infection History false Thalassemia (Serbian, English, Mediterranean, Or Background): MCV < 80 false [...] false History of HIV false Darrel-Sachs (eg, Methodist, Cajun , Kenyan-Sammarinese) false History Of STD, Gonorrhea, C hlamydia, HPV, Syphilis false History of Hepatitis false Prior GBS-infected child false Neural Tube Defect (Meningom yelocele, Spina Bifida, Or Anencephaly) false Previous Carrier Screening Test false Hemophilia Or Other Blood Disorders false [place]'s Ch[place] false If Yes, Was Person Tested [...] Discharge Date Comments 3 Regional-Sp inal 38 Low Transvers e Michelle Milan MD Discharge Information Feeding Method Contraceptive Method Maternal HG B and HCT Levels
--- OUTSIDE RECORDS SUMMARY | 2025-02-17 17:10 | XMS_ITS | Clinical Summary ---
Author Organization [facility] Address [address] [place] [address] Care Team Providers Care News Camera Person Name Role Phone None Reported, Pcp Primary Care Provider Unavail able Source Comments Patient records contain information from all sites at [facility]. For routine questions regarding patient records, call [phone] during business hours, M-F 8:00 AM - 5:00 PM Central Time. Record requests for emergency care only can be directed to [phone] at any time.[facility] Allergies Active Allergy Reactions Criticality Noted Date Comments Cephalexin Anaphylaxis,Swelling High 07/16/2016 Latex Anaphylaxis,[place]io[place] ma (Reselect Reaction),Hives (Reselect Reaction) High 02/16/2012 Medications * This document contains information received from the source organization and may not represent a complete record from that organization. LORazepam (ATIVAN) 2 mg tablet Take 2 mg by mouth 3 (three) times a day as needed for anxiety. Active oebgaqg-Qt-zqep- FA 27 mg iron- 1 mg tablet [...] for pain. 100 tablet 4 3:24 PM PAYROLL EXAMINER 05/21/19 24 Active fluticasone furoate (ARNUITY ELLIPTA) [...] the floor. She received her care at [facility]. Section Delivery 05/18/2023 Overview (05/18/2023): Charissa [...] kg. Jean Claude, Boy A One Charissa [[phone]] 1.58 kg Jean Claude, Girl B Two Charissa [[phone]] 1.36 kg . Gestational age: 30w1d. occurred: Contraceptive methods administered during the delivery: None Both mother was in stable condition at the conclusion of the procedure. Neonates were handed off to the Dheeraj team. When the patient met appropriate criteria, she was transferred to the floor. She received her care at [facility]. Maternal Care For Vertical S car [...] normal. Assessment & Plan (03/17/2019 3:34 PM PAYROLL EXAMINER): Plan MFM consult and Level II US. Assessment & Plan (03/04/2019 1:51 PM PAYROLL EXAMINER): Will offer maternal serum screen once confirmed viable. Will offer first trimester anatomy US. Plan MFM consult, Level II US, and cardiac echo. Assessment & Plan (02/27/2019 5:09 PM PAYROLL EXAMINER): Will offer maternal serum screen once confirmed viable. Plan MFM consult, Level II US, and cardiac echo. Attention Deficit Hyperactive Disorder 9 Assessment & Plan (03/17/2019 3:33 PM PAYROLL EXAMINER): Referral to Psychiatry scheduled for 04/01/2019. Working with Ariela Hanks in care coordination to assist with coordinating this. Dr. Finney is prescribing her Adderall in the meantime. Has had improvement in symptoms back on medication, and is happy with this, though she believes her symptoms could be better controlled. Assessment & Plan (03/04/2019 1:50 PM PAYROLL EXAMINER): Plan referral to Psychiatry. Working with Ariela Hanks in care coordination to assist with coordinating this. Dr. Finney is prescribing her Adderall in the meantime. Has had improvement in symptoms back on medication, and is happy with this, though she believes her symptoms could be better controlled. Assessment & Plan (02/27/2019 4:40 PM PAYROLL EXAMINER): Plan referral to Psychiatry in [place]. Referral will need to be provided by [...] frequently. Assessment & Plan (03/17/2019 3:32 PM PAYROLL EXAMINER): Reports increased symptoms. Has not picked up albuterol or pulmicort. Prescriptions resent. Assessment & Plan (02/27/2019 4:41 PM PAYROLL EXAMINER): Will confirm at the next visit that [...] most likely will not do due to zoroastrian considerations. having a vasectomy. Major Depressive Disorder, [...] the 67%ile with EFW of 2543 gm. [facility] recommended follow up US in 2-3 [...] was in place. 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 She is considering the NuvaRing for contraception [...] 04/17/2019 Assessment & Plan (03/26/2019 11:43 AM PAYROLL EXAMINER): US today shows a gestational sac with [...] US. Assessment & Plan (03/04/2019 1:56 PM PAYROLL EXAMINER): labs and OB education will be ordered [...] 07/04/2023 Assessment & Plan (03/26/2019 11:40 AM PAYROLL EXAMINER): UA/UCx negative on 03/04/2019. Assessment & Plan (03/04/2019 1:54 PM PAYROLL EXAMINER): No fevers, chills, or CVA tenderness. Stress 02/27/2019 01/29/2023 Overview (01/08/2020): Please see details above under depression anxiety Maternal Care For Vertical S car From Previous Delivery 02/27/2019 04/19/2019 Overview (02/27/2019): History of classical section. Operative report reviewed. Plan delivery at 36+0 weeks - 37+6 weeks gestation. Assessment & Plan (03/17/2019 3:35 PM PAYROLL EXAMINER): Plan MFM consult and Level II US. Assessment & Plan (03/04/2019 1:52 PM PAYROLL EXAMINER): Plan MFM consult and Level II US. Assessment & Plan (02/27/2019 5:08 PM PAYROLL EXAMINER): Plan MFM consult and Level II US. Multiparity Grand With 02/27/2019 05/28/2023 Overview (03/29/2023): Increased risk of PPH. Assessment & Plan (03/17/2019 3:35 PM PAYROLL EXAMINER): CBC and type and screen upon admission for section. She has asthma, so will have Methergine immediately available at the time of delivery. We will avoid the use of Hemabate. Assessment & Plan (03/04/2019 1:52 PM PAYROLL EXAMINER): CBC and type and screen upon admission for section. She has asthma, so will have Methergine immediately available at the time of delivery. We will avoid the use of Hemabate Assessment & Plan (02/27/2019 5:10 PM PAYROLL EXAMINER): CBC and type and screen upon admission [...] was able to move with her to [place] and a 5-bedroom 3-bathroom house and was [...] mood-standpoint. Assessment & Plan (03/26/2019 11:38 AM PAYROLL EXAMINER): Psychiatry visit is being coordinated. EPDS score 6 and GISEL-7 score 3 when last checked. She now has custody of 7 of her children and that has helped. Assessment & Plan (03/04/2019 1:50 PM PAYROLL EXAMINER): Psychiatry visit is being coordinated. EPDS score 6 and GISEL-7 score 3 today. Assessment & Plan (02/27/2019 5:11 PM PAYROLL EXAMINER): Plan psychiatry referral. EPDS at next visit. Dewart II No Diagnosis 023 Immunizations Immunization Administration [...] Skin cancer Maternal Grandmother Arthritis Mother Autoimmune disease Mother Learning disabilities Mother Mental illness Mother Skin cancer Mother Thyroid disease Sister Relation Name Status Comments Brother Father Maternal Grandfather Maternal Grandmother Mother Sister Social History Tobacco Use Types Packs/Day Years Used Date Smoking Tobacco: Former Cigarettes 0.5 Q uit: 2018 Smokeless Tobacco: Never Tobacco Cessation:Counseling Given: Not Answered Alcohol Use Standard Drinks/Week Comments Never 0 (1 standard drink = 0.6 oz pur e alcohol) [facility] [employer] Answer Date Recorded In the past 12 months has th e [employer] gas, oil, or water [employer] threatened to shut off services in your [...] your living situation today? I have a [facility] place to live 05/17/2023 Education Answer [...] Body Mass Index 40.29 06/07/2023 10:01 AM PAYROLL EXAMINER Plan of Treatment Health Maintenance Due Date Last Done Comments Pneumococcal vaccine (0-49 y ears) (1 of 2 - PCV) 2011 Asthma Action Plan 02/26/2019 Asthma Management/Exacerbati on Questionnaire (AMQ/AEQ) 02/26/2019 Asthma Control Test Questionnaire 10/26/2022 023 Depression Screening (Annual PHQ-2) 04/09/2024 COVID-19 Vaccine ( - 2024-2 6 season) 2024 Influenza Vaccine (#1) 2024 DTaP,Tdap,and Td Vaccines (1 0 - Td or Tdap) 11/20/2026 11/20/2016, 06/01/2015, 09/15/2009, Additional history exists Cervical/Vaginal Cancer Screening 01/30/2028 023, 01/29/2023 Hepatitis B Vaccines Completed 08/22/1994, 1992, 1992 IPV Vaccines Completed 06/08/1997, 02/09, 1992, Additional history exists HPV Vaccines Completed 05/02/2007, 04, 04/19/2006 Varicella Vaccines Completed 06/01/2015, 1 04/24/2005, 08/22/1994 HIV Screening Completed 01/29/2023, 11/2022, 04/10/2021, Additional history exists Hepatitis B Screening Discontinued 01/29/2023 , 04/10/2021, [...] OD ORDERABLES Final Result Performing Organization Address [facility]/ZIP Co de Phone Number [facility] [address] [place] [id number], [facility] [address] [address] * Hepatitis B Surface Antigen (01/29/2023 3:16 PM CDT) HBs Antigen, S Nonreactive Nonreactive 01/29/2023 10:21 PM CDT AUST Blood (Blood, Venous) 01/29/2023 3:16 PM CDT 01/29/2023 9:37 PM CDT Cecilio Healy Jr., M.D. LAB MICROBIOLOGY - BLO OD ORDERABLES Final Result Performing Organization Address City/[facility]/ZIP Co de Phone Number [facility] [address] [place] [address], [place] AUST [facility] [address] [place] [address] * HPV with Genotyping, PCR, ThinPrep (01/29/2023 [...] correlated with patient's history, clinical presentation, and CERTIFIED SHORTHAND REPORTER cytology report. 01/29/2023 2:28 PM CDT 01/30/2023 6:49 AM CDT us Cecilio Healy Jr., M.D. LAB MICROBIOLOGY - GEN ERAL ORDERABLES Final Result [facility] [address] [place] [address], [facility] [address] [address] from Last 3 Months or Most Recently Relevant to Health Maintenance Insurance [facility] Advance Directives For more information, please contact: [phone] * Full Code (Latest Code Status on File) Date Activated Date Inactivated Comments 05/01/2023 10:56 AM 05/04/2023 2:22 PM Question Answer Comments Full Code: Not Discussed Due to: Not medically appropriate * Full Code Date Activated Date Inactivated Comments 01/29/2020 10:37 AM 01/29/2020 6:03 PM Question Answer Comments Full Code: Not Discussed Due to: Not medically appropriate Care Teams News Camera Person Relationship Specialty Start Date End Date None Reported, Pcp PCP - General Family Medicine 07/20/23
[2025-02-17 17:21] VITALS: BP 144/97; PULSE 90; RESP 18; TEMP 37.1; O2SAT 98
--- NOTE | 2025-02-17 20:26 | ED_ITS ---
HPI - General Adult General Chief complaint: Dental/Oral/Mouth Injury/Pain Stated complaint: broken tooth, pain Time Seen by Provider: 02/17/25 20:17 History of Present Illness HPI narrative: Patient presents to the emergency department complaining of tooth pain. Patient states she broke her tooth last night. Patient states she has been unable to get into a dentist until Sunday. Patient states this is causing head pain and nausea . Pain has made it difficult to sleep. Patient was seen at urgent care and was instructed to take Tylenol and ibuprofen and to present to the ER for worsening pain. 34-year-old woman presenting to the emergency department with concern of marked dental pain. Really hurts to chew on the left side and is sensitive to hot and cold. She just wants to rest at this point and eat briefly without pain. Has managed to schedule a follow-up in 3 days time in a dental clinic. Is having a lot of pain in the left jaw. Some nausea as well. Had been seen in area our urgent care and told to take acetaminophen ibuprofen and then directed to the e mergency department. Evidently last night broken other aspect of tooth in question in the left lower jaw. No fever. No drainage. Related Data Home Medications ?Medication ?Instructions ?Recorded ?Confirmed ibuprofen 200 mg tablet 200 mg PO Q6H PRN 01/29/24 1 04/19/24 acetaminophen 325 mg tablet PO 08/12/24 12/22/24 magnesium oxide 200 mg PO DAILY 08/12/2403/03 lorazepam 0.5 mg tablet 0.5 - 1 mg PO Q6H PRN anxiet y 12/22/24 02/17/25 Previous Rx's ?Medication ?Instructions ?Recorded dextroamphetamine-amphetamine ER 50 mg (2 x 25 mg) PO QDAY #14 caps 05/16/24 25 mg 24hr capsule,extend release (Adderall XR) [employer] pelvic floor stimulator #1 ea 05/31/24 albuterol sulfate 90 mcg/actuation 2 puff inhalation Q 4-6H PRN 09/22/24 aerosol inhaler shortness of breath or wheez ing #8.5 grams dextroamphetamine-amphetamine 20 1 tab PO TID #90 tabs 09/22/24 mg tablet estradiol 0.01% (0.1 mg/gram) 0.5 g vaginal 2XW #42.5 grams 09/22/24 vaginal cream (Estrace) fluticasone furoate 200 1 inh inhalation DAILY #30 e a 09/22/24 mcg/actuation blister powder for inhalation (Arnuity Ellipta) hydroxyzine HCl 50 mg tablet 100 mg (2 x 50 mg) PO QID PRN 09/22/24 anxiety or allergies #60 tabs metoclopramide HCl 5 mg tablet 10 mg (2 x 5 mg) PO QID #240 tabs 09/24/24 nystatin 100,000 unit/gram topical 1 applic topical BI D PRN itching 12/22/24 ointment #15 grams azithromycin 500 mg tablet See Rx Instructions .Route 02/17/25 .COMPLEX 5 days #3 tabs hydrocodone 5 mg-acetaminophen 325 1 - 2 tab PO TID ID N pain #9 tabs 02/17/25 mg tablet Allergies Allergy/AdvReac Type Severity Reaction Status Date / Time cephalexin (From Keflex) Allergy Intermediate Verified 02/17/25 17:28 latex Allergy Mild Verified 02/17/25 17:28 Review of Systems Status of ROS: Reports: 6 or more systems reviewed and unremarkable except as noted in History and below [facility] Medical History delivery ?O60.10X0 - labor with delivery, unspecified trimester, not applicable or unspecified (ICD-10) Surgical History History of hysterectomy ?Z90.710 - Acquired absence of both cervix and uterus (ICD-10) History of appendectomy ?Z90.49 - Acquired absence of other specified parts of digestive tract (ICD- 10) S/P section ?Z98.891 - History of uterine scar from previous surgery (ICD-10) Social History What is your current living situation?: I presently have a place to live Problems where you live: no known problems In the past 12 months, utilities in danger of being shut off: no In past 12 months, lack of transportation kept you from medical appts, meetings, work, or getting things needed for daily living: no In the past 12 mos, have been you worried that your food would run out before you had money to buy more?: never true In the past 12 mos, the food you bought just didn't last and you didn't have money to buy more?: never true How often does anyone, including family, friends and others, physically hurt you : never How often does anyone, including family, friends and others, insult or talk down to you: never How often does anyone, including family, friends and others, threaten you with harm: never How often does anyone, including family, friends and others, scream or curse at you: never Exam Narrative: Exam Narrative: Pleasant. Does appear tired. Appears quite uncomfortable. Periodically reaching up been touching the left side of her face I think on aware. There is subtle swelling to the left lower jaw. No significant cervical lymphadenopathy appreciated. No erythema externally. Oropharyngeal exam shows that tooth #20 appears to be the tooth involved. Has lost a central portion anteriorly and posteriorly. I do not see gingival swelling. Const: Vital Signs, click to edit/add: Vital Signs - 24 hr 02/17/25 17:21 Temperature 98.7 F Pulse Rate [Right Pulse Oximeter] 90 Respiratory Rate 18 Blood Pressure [Ri ght Upper Arm] 144/97 H Pulse Oximetry 98 Oxygen Delivery Me thod Room Air Documenting provider has reviewed patient's vital signs: yes Course Vital Signs Vital signs: Initial Vital Signs Temperature 98.7 F 02/17/25 17:21 Temperature Source Temporal Artery Scan 02/17/25 17:21 Pulse Rate 90 02/17/25 17:21 Pulse Rhythm Regular 02/17/25 17:21 Pulse Strength 3+ Normal 02/17/25 17:21 Respiratory Rate 18 02/17/25 17:21 Blood Pressure 144/97 H 02/17/25 17:21 Blood Pressure Mean 112 H 02/17/25 17:21 Blood Pressure Position Sitting 02/17/25 17:21 Pulse Oximetry 98 02/17/25 17:21 Oxygen Delivery Method Room Air 02/17/25 17:21 Vital Signs Temperature 98.7 F 02/17/25 17:21 Pulse Rate 90 02/17/25 17:21 Respiratory Rate 18 02/17/25 17:21 Blood Pressure 144/97 H 02/17/25 17:21 Pulse Oximetry 98 02/17/25 17:21 Oxygen Delivery Method Room Air 02/17/25 17:21 Temperature 98.7 F 02/17/25 17:21 Pulse Rate 90 02/17/25 17:21 Respiratory Rate 18 02/17/25 17:21 Blood Pressure 144/97 H 02/17/25 17:21 Pulse Oximetry 98 02/17/25 17:21 Oxygen Delivery Method Room Air 02/17/25 17:21 Medications Administered Medications: Discontinued Medications Generic Name Dose Route Start Last Admin Trade Name Cristine PRN Reason Stop Dose Admin Bupivacaine HCl 10 ml 02/17/25 20:31 02/17/25 20:37 Bupivacaine 0.25% 30 Ml INJECTION 02/17/25 20:32 10 ml ONCE ONE Administration Medical Decision Making MDM Narrative Medical decision making narrative: May have some evidence of infection here with the swelling. Could be just reactive as well otherwise. Clearly has injury to a tooth. She would appreciate immediate pain relief when I offered to do a dental injection. Did perform an inferior alveolar block on the left with 1/2 mL of 0.25% bupivacaine. This did result in significant relief of pain particularly posteriorly but still with some tooth pain. Subsequently injected 1.5 mL in an incisor block. This did result in further improved pain management. She was appearing more relaxed, comfortable. I think it is reasonable to treat with antibiotics. She notes a history of grand multiparity and associated urinary tract infections and that have become resistant anymore to penicillin/amoxicillin. Looks to have a cephalosporin allergy and is requesting azithromycin specifically as an antibiotic. I did express my reservations regarding treating atypicals here and preference for using penicillins but ultimately did prescribed macrolide as requested. She is also wanting to have some pain medication available until dental appointment in 3 days. Will be prescribing some Masterson. See patient discharge plan for further discussion Please follow-up on Sunday with your dentist as planned/scheduled. Consider placing DenTek type putty that you can buy okpi-don-rhecdxe lab [facility] for example. This might help with some of the sensitivity. Otherwise, as discussed prescribing azithromycin (I see you have a cephalosporin allergy) as requested from [facility]. Also prescribing Masterson from [facility] Otherwise can take up to 800 mg of ibuprofen or up to 1000 mg of acetaminophen per dose. Keep in mind that each tablet of Masterson contains 5 mg of hydrocodone and 325 mg of acetaminophen. (changed medication prescriptions to pharmacy per later request) Medical Records Medical records reviewed: Yes I reviewed the patient's medical records Discharge Plan Discharge Clinical Impression: Pain, dental, Dental caries Patient Disposition: Home, Self-Care Condition: Improved Additional Instructions: Please follow-up on Sunday with your dentist as planned/scheduled. Consider placing [employer]Tek type putty that you can buy zkef-glg-pnxesni lab [facility] for example. This might help with some of the sensitivity. Otherwise, as discussed prescribing azithromycin (I see you have a cephalosporin allergy) as requested from [facility]. Also prescribing Masterson from [facility] Otherwise can take up to 800 mg of ibuprofen or up to 1000 mg of acetaminophen per dose. Keep in mind that each tablet of Masterson contains 5 mg of hydrocodone and 325 mg of acetaminophen. Prescriptions: New hydrocodone-acetaminophen 5-325 mg tablet 1 - 2 tab PO TID PRN (Reason: pain) Qty: 9 0RF azithromycin 500 mg tablet See Rx Instructions .ROUTE .COMPLEX 5 Days Qty: 3 0RF Rx Instructions: Take 500 mg on day 1 then 250 mg on days 2 through 5 No Action ibuprofen 200 mg tablet 200 mg PO Q6H PRN (DME) [employer] pelvic floor stimulator See Rx Instructions .Route .MEDSUPPLY Qty: 1 0RF Rx Instructions: As directed estradiol [Estrace] 0.01 % (0.1 mg/gram) cream 0.5 g vaginal 2XW Qty: 42.5 3RF Rx Instructions: Use nightly for 2 weeks, then twice weekly. May apply with finger. dextroamphetamine-amphetamine 20 mg tablet 1 tab PO TID Qty: 90 0RF albuterol sulfate 90 mcg/actuation HFA aerosol inhaler 2 puff inhalation Q4-6H PRN (Reason: shortness of breath or wheezing) Qty: 8.5 1RF Arnuity Ellipta 200 mcg/actuation blister with device 1 inh inhalation DAILY Qty: 30 12RF hydroxyzine HCl 50 mg tablet 100 mg PO QID PRN (Reason: anxiety or allergies) Qty: 60 11RF lorazepam 0.5 mg tablet 0.5 - 1 mg PO Q6H PRN (Reason: anxiety) nystatin 100,000 unit/gram ointment 1 applic topical BID PRN (Reason: itching) Qty: 15 2RF acetaminophen 325 mg tablet PO magnesium oxide 200 mg magnesium tablet 200 mg PO DAILY dextroamphetamine-amphetamine [Adderall XR] 25 mg capsule,extended release 24hr 50 mg PO QDAY Qty: 14 0RF metoclopramide HCl 5 mg tablet 10 mg PO QID Qty: 240 11RF Follow Up/Referrals: Marko Dobbins MD [Primary Care Provider, Family Practice] Stand Alone Forms: [employer] Info Instructions
[2025-02-17] MEDS: BUPIVACAINE 0.25% 30 ML 10 ML INJECTION (20:37)
== END 2025-02-17 23:19 | disposition home or self-care (01) ==
LOC: ED 21:30
PROVIDERS: Emergency Provider Family Medicine; PCP Family Medicine
DX: K02.9 Dental caries, unspecified (principal)
CPT/HCPCS: 64400; 99283; 99284; J0665